=== PATIENT | male | born 1945 | race Caucasian/White ===

== ENCOUNTER 2017-02-10 08:48 | Inpatient (IN) ==
[2017-02-10] MEDS ORDERED: Calcium Gluconate 3,000 MG in D5% in Water 250 ML IVPB ONE (09:04)
[2017-02-10] MEDS ORDERED: 0.9 % Sodium Chloride 1,000 ML IVC ONE (09:06)
--- NOTE | 2017-02-10 09:10 | Emergency Department Note ---
Disposition Clinical Impression: Atrial fibrillation with RVR, Elevated troponin, Pleural effusion, Atelectasis of left lung, Hyperglycemia CKD (chronic kidney disease) Qualifiers: Chronic kidney disease stage: unspecified stage Qualified Code(s): N18.9 - Chronic kidney disease, unspecified Disposition: Admitted As Inpatient Condition: Fair Time of Disposition: 10:11 Arrhythmia/Palpitations HPI - General Chief Complaint: ED Arrhythmia/Palpitations Stated Complaint: A-fib RVR Time Seen by Provider: 02/10/17 08:55 Source: patient Mode of arrival: ambulatory Limitations: no limitations Nursing Notes Reviewed: Yes Vital Signs Reviewed: Yes - History of Present Illness HPI Narrative: 72-year-old gentleman history of A. fib, hypertension, peripheral vascular disease on Plavix presents for evaluation of dyspnea. Patient was seen in the cardiology office prior to arrival. Call from cardiology was received. Patient does have A. fib with RVR. Patient noted symptom onset this morning. No shortness of breath. No notable palpitations. Reports that he has been taking his medication as instructed. Patient is not on any type of oral anticoagulation. Patient denies any chest pain. No shortness of breath without fevers or cough. Patient does have remote history of smoking. Denies any nausea or vomiting. No abdominal pain. - Related Data Home Medications Medication Instructions Recorded Confirmed Aspirin 81 mg PO DAILY 07/20/16 02/10/17 Clopidogrel [Plavix] 75 mg PO DAILY 07/20/16 02/10/17 Losartan/Hydrochlorothiazide 1 tab PO DAILY 07/20/16 02/10/17 [Hyzaar 100-25 Tablet] Metoprolol XL (24 HR) Succ [Toprol 25 mg PO DAILY 07/20/16 02/10/17 Xl] Tamsulosin [Flomax] 0.8 mg PO DAILY 07/20/16 02/10/17 predniSONE [PredniSONE] 10 mg PO TAPER 02/10/17 02/10/17 Allergies Allergy/AdvReac Type Severity Reaction Status Date / Time Penicillins AdvReac See Verified 07/20/16 07:33 Comments ramipril [From Altace] AdvReac Cough Verified 07/20/16 07:33 Sbtoneb-Cwm-Lxg Reductase AdvReac Muscle Pain Verified 07/20/16 07:33 Inhibitor [Statins] All systems ED: reviewed and negative except as stated. Constitutional: Reports: as per HPI. Denies: fever Eyes: Reports: as per HPI ENT ED: Reports: as per HPI Cardiovascular: Reports: as per HPI. Denies: chest pain, palpitations Respiratory: Reports: as per HPI, dyspnea Gastrointestinal: Reports: as per HPI. Denies: nausea, vomiting, diarrhea Genitourinary: Reports: as per HPI Musculoskeletal: Reports: as per HPI Integumentary: Reports: as per HPI Neurological: Reports: as per HPI Psychiatric: Reports: as per HPI Endocrine: Reports: as per HPI Hematological/Lymphatic: Reports: as per HPI Past Medical History - Past Medical History Medical history: Reports: atrial fibrillation, coronary artery disease, hypertension Surgical history: Reports: angioplasty/stent, cataract, coronary bypass (CABG), herniorrhaphy, LE stent(s) Psychiatric history: Reports: no psych history - Social History Smoking Status: Former smoker Smokeless Tobacco Status: No Alcohol use: Reports: none Drug use: Reports: none Physical Exam - General Limitations: no limitations General appearance: alert, in no apparent distress - Head Head exam: atraumatic, normocephalic, normal inspection - Eye Eye exam: Present: normal appearance, PERRL, EOMI - ENT ENT exam: normal exam, mucous membranes moist - Neck Neck exam: Present: normal inspection, trachea midline - Chest Chest inspection: Present: normal inspection, symmetric chest wall rise - Respiratory Respiratory exam: Present: normal lung sounds bilaterally. Absent: respiratory distress - Cardiovascular Cardiovascular exam: Present: tachycardia, irregular rhythm - Abdominal Exam Abdominal exam: Present: soft, Non-Tender - Extremities Exam Extremities exam: Present: normal inspection. Absent: pedal edema - Back Exam Back exam: Present: normal inspection - Neurological Exam Neurological exam: Present: alert, oriented X3 - Skin Skin exam: Present: warm, dry, intact, normal color Course Course Narrative: Patient seen and examined upon arrival. Patient's vitals appears to be tachycardic with a blood pressure 1 teens systolic. Patient is not conversational dyspnea. Patient will get a cardiac evaluation including chest x -ray, EKG, lab work including a troponin. Patient will be pretreated with calcium prior to rate control. Attempts with Cardizem with gradual titration. Disposition admission. - Reevaluation(s) Reevaluation #1: Patient updated on plan of care. Patient's heart rate appears to be improving. Patient received diltiazem 10 mg and subsequent drip. Patient is on adequate place with heparin due to his A. fib as well as elevated troponin. Patient denies any chest pain. Patient does not have a STEMI on EKG. Patient will be admitted to the hospital service for further evaluation and monitoring. Patient updated on plan of care and denies any needs at this time. Time: 10:07 Reevaluation #2: Patient is resting comfortably. Patient's in no acute distress. Time: 10:20 Vital Signs Temperature 97.5 F L 02/10/17 08:50 Pulse Rate 182 02/10/17 08:50 Respiratory Rate 16 02/10/17 08:50 Blood Pressure 142/116 02/10/17 08:50 O2 Sat by Pulse Oximetry 95 02/10/17 08:50 Temperature 97.5 F L 02/10/17 08:50 Pulse Rate 129 02/10/17 10:04 Respiratory Rate 16 02/10/17 10:24 Blood Pressure 123/80 02/10/17 10:24 O2 Sat by Pulse Oximetry 95 02/10/17 10:04 Oxygen Delivery Oxygen Delivery Room Air Arrhythmia/Palpitations - [facility] Narrative Medical decision making narrative: 72-year-old male history of hypertension as well as A. fib presents for evaluation of dyspnea. Patient's onset was this morning. Patient was sent over from the cardiology office. Patient was noted to be in A. fib with RVR with a rate in the 160s to 70s. Patient's blood pressure also fluctuated from as high as 140s systolic to the mid 90s systolic. Patient was premedicated with 3 ounces of calcium gluconate. Patient was also given a Cardizem boluses as a drip. Patient's troponin came back elevated without EKG ST elevation or chest pain. Patient was given aspirin as well as started on a heparin drip patient denies any history of bloody stools or dark tarry stools. Patient's hemoglobin is stable.. Patient will be admitted to the hospitalist service for further evaluation monitoring. Patient's chest x-ray does show left basal lateral atelectasis and new effusion. Likely secondary to the A. fib. Patient does not present with symptoms concerning for pneumonia and antibiotics were not initiated in the emergency department. Patient was updated on plan of care. - Lab Data Lab results reviewed: Yes I reviewed the patient's lab results. Result diagrams: 02/10/17 08:56 02/10/17 08:56 Lab Results 02/10/17 02/10/17 02/10/17 Range/Units 08:56 08:56 08:56 WBC 10.8 (4.3-11.1) K/mcL RBC 5.27 (4.19-5.50) M/mcL Hgb 16.6 (12.9-16.9) g/dL Hct 50.4 H (37.5-50.1) % MCV 95.6 (83.0-100.0) fL MCH 31.5 (28.0-33.3) pg MCHC 32.9 (31.6-35.5) g/dL RDW 15.9 H (11.5-14.5) % Plt Count 143 (140-400) K/mcL MPV 11.9 (9.4-12.4) fL Immature Gran % 0.4 (0-4) % Seg Neutrophils % 89.8 % Lymphocytes % 6.0 % Monocytes % 3.7 % Eosinophils % 0.0 % Basophils % 0.1 % Neutrophils # 9.7 H (1.6-8.9) K/mcL Lymphocytes # 0.7 (0.6-4.6) K/mcL Monocytes # 0.4 (0.0-1.3) K/mcL Eosinophils # 0.0 (0.0-0.6) K/mcL Basophils # 0.0 (0.0-0.2) K/mcL PT 14.8 H (9.4-12.1) Seconds INR 1.4 APTT 27.7 (26.0-36.0) Seconds Sodium 144 (136-145) mEq/L Potassium 3.4 L (3.5-4.5) mEq/L Chloride 103 (98-109) mEq/L Carbon Dioxide 26 (19-29) mEq/L BUN 38 H D (8-26) mg/dL Creatinine 1.80 H (0.72-1.25) mg/dL Est GFR ( Amer) 45 L (> 60) Est GFR (Non-Af Amer) 37 L (> 60) BUN/Creatinine Ratio 21 (6-26) Glucose 217 H (70-99) mg/dL Calculated Osmolality 314 H (280-300) Calcium 9.5 (8.6-10.8) mg/dL Magnesium 1.6 (1.6-2.6) mg/dL Troponin I (0-0.03) ng/mL TSH 1.654 (0.350-4.840) mcIU/mL 02/10/17 Range/Units 08:56 WBC (4.3-11.1) K/mcL RBC (4.19-5.50) M/mcL Hgb (12.9-16.9) g/dL Hct (37.5-50.1) % MCV (83.0-100.0) fL MCH (28.0-33.3) pg MCHC (31.6-35.5) g/dL RDW (11.5-14.5) % Plt Count (140-400) K/mcL MPV (9.4-12.4) fL Immature Gran % (0-4) % Seg Neutrophils % % Lymphocytes % % Monocytes % % Eosinophils % % Basophils % % Neutrophils # (1.6-8.9) K/mcL Lymphocytes # (0.6-4.6) K/mcL Monocytes # (0.0-1.3) K/mcL Eosinophils # (0.0-0.6) K/mcL Basophils # (0.0-0.2) K/mcL PT (9.4-12.1) Seconds INR APTT (26.0-36.0) Seconds Sodium (136-145) mEq/L Potassium (3.5-4.5) mEq/L Chloride (98-109) mEq/L Carbon Dioxide (19-29) mEq/L BUN (8-26) mg/dL Creatinine (0.72-1.25) mg/dL Est GFR ( Amer) (> 60) Est GFR (Non-Af Amer) (> 60) BUN/Creatinine Ratio (6-26) Glucose (70-99) mg/dL Calculated Osmolality (280-300) Calcium (8.6-10.8) mg/dL Magnesium (1.6-2.6) mg/dL Troponin I 0.10 H* (0-0.03) ng/mL TSH (0.350-4.840) mcIU/mL - Radiology Data Radiology results reviewed: Yes I reviewed the patient's radiology results. Chest X-Ray 02/10/17 09:06 IMPRESSION: New large amount of left basilar atelectasis and/ or pneumonia with adjacent small to moderate pleural effusion. D/ / Kevin Ramos MD / Kevin Ramos MD Interpreting Provider: Kevin Ramos MD - EKG Data EKG attestation: Yes I reviewed and interpreted this EKG. Rate: tachycardia Rhythm: A.Fib [place]/QRS: normal Q waves: III, aVF, v1, v2 T wave inversions noted in: v1, v2 When compared to previous EKG there are: changes noted Interpretation: nonspecific ST-T wave changes S.B.A.R. - S.B.AJose Situation: Demographics Background: Presenting Complaint Assessment: Vital Signs, Course and respsone to treatment, Patient/Family Expectation Recommendation: Barrier(s) to disposition, Recommendation based on pending studies, treatments, or consults S.B.A.RRito Report Given to: Dr. Cortney Baptiste Repor Time: 09:50
[2017-02-10 09:16] LABS: Basophils % 0.1 %; Hematocrit 50.4 % (37.5-50.1); Hemoglobin 16.6 g/dL (12.9-16.9); Immature Granulocytes % 0.4 % (0-4); Lymphocytes # 0.7 K/mcL (0.6-4.6); Mean Corpuscular HGB Conc 32.9 g/dL (31.6-35.5); Mean Corpuscular Hemoglobin 31.5 pg (28.0-33.3); Mean Corpuscular Volume 95.6 fL (83.0-100.0); Mean Platelet Volume 11.9 fL (9.4-12.4); Monocytes # 0.4 K/mcL (0.0-1.3); Monocytes % 3.7 %; Neutrophils # 9.7 K/mcL (1.6-8.9); Platelet Count 143 K/mcL (140-400); Red Blood Count 5.27 M/mcL (4.19-5.50); Red Cell Distribution Width 15.9 % (11.5-14.5); Segmented Neutrophils % 89.8 %
--- NOTE | 2017-02-10 09:19 | Emergency Department Note ---
START Narrative - START START: I examined this patient and my medical decision-making was reviewed with the HEALTHCARE REPRESENTATIVE/PA/Advanced Practice Nurse/Resident Physician. I agree with the documented findings, disposition and treatment plan as described except to the extent set forth below. ED attending note: Patient seen with emergency medicine resident Dr. Gabriel. Please see a copy of his note for details of the H&P, evaluation, management and disposition of this patient. We independently had [id number] contact with the patient Briefly: 72-year-old male sent from Dr. Tafoya's office for A. fib and RVR. Ablation years ago. Patient is in A. fib with RVR rate of about 180. He was hypotensive upon arrival. Awake and alert. The patient will get IV calcium IV diltiazem patient will get supportive therapy and patient will get chest x-ray and be admitted. She also has increasing creatinine and prostate enlargement. Provided 45 minutes of critical care services this patient. Admission is anticipated. Labs pending.
[2017-02-10 09:22] LABS: INR 1.4; Prothrombin Time 14.8 Seconds (9.4-12.1)
[2017-02-10 09:24] LABS: Calcium 9.5 mg/dL (8.6-10.8); Magnesium 1.6 mg/dL (1.6-2.6); Potassium 3.4 mEq/L (3.5-4.5)
[2017-02-10 09:25] LABS: Activated Partial Thrombo Time 27.7 Seconds (26.0-36.0)
[2017-02-10] MEDS ORDERED: Aspirin 81 MG TAB.CHEW PO ONE (09:33)
[2017-02-10] MEDS ORDERED: *HR* Heparin 5,000 UNIT/ML VIAL IVP ONE (09:40)
[2017-02-10 09:46] LABS: Thyroid Stimulating Hormone 1.654 mcIU/mL (0.350-4.840)
[2017-02-10] MEDS: Heparin 25,000 UNIT/500 ML D5W 25,000 UNIT/500 ML MLS IVC SCH (09:54)
[2017-02-10] MEDS ORDERED: Acetaminophen 325 MG TABLET PO PRN (10:58)
[2017-02-10] MEDS ORDERED: MOM Conc 10 ML UD.LIQ PO PRN (10:58)
[2017-02-10] MEDS ORDERED: Naloxone 0.4 MG/ML INJ IVP PRN (10:58)
[2017-02-10] MEDS ORDERED: predniSONE 10 MG TABLET PO SCH (11:15)
--- NOTE | 2017-02-10 11:26 | Event Note ---
Date of Encounter: 02/10/17 Time of Encounter: 11:24 1. Atrial fibrillation with rapid ventricular response without clear trigger, possibly community-acquired pneumonia Continue Cardizem drip Start Rocephin IV Cardiology consult 2. Elevated troponin likely secondary to demand ischemia versus non-STEMI Continue Plavix and aspirin 3. Urinary retention this Order bladder scan, may consult urology Place Jensen catheter 4. Acute renal failure likely associated with urinary retention IVF Note to follow by NATHALIE Feldman
--- NOTE | 2017-02-10 11:32 | Internal Med History&Physical ---
<Mike Feldman - Last Filed: 02/10/17 12:09> Date of Encounter: 02/10/17 Time of Encounter: 10:30 Assessment and Plan (1) Atrial fibrillation with RVR Current visit: Yes Status: Acute Assess: Mr. Chavez presents with SOB with exertion and irregular heart beat. Patient was seen in his electronic science teacher's office prior to arrival at the ED. Patient reports symptoms of shortness of breath and palpitations began this morning. Patient currently in Afib with RVR with unknown trigger, possibly CAP based on CXR dated 02/10/17. Plan: Continue Cardizem drip Cardiology consult ordered and confirmed Continuous cardiac telemetry ordered Heparin drip ordered Continue aspirin therapy Continue Plavix Continue Lopressor Bed rest with falls precautions and up with assist only status Monitor patient and vital signs (2) Elevated troponin Current visit: Yes Status: Acute Assess: Patient presents with elevated initial troponin level of 0.1. Plan: Trend troponins x2 Continuous cardiac telemetry ordered Continue Plavix and aspirin therapy Follow-up labs ordered Monitor patient and vital signs (3) Pleural effusion Current visit: Yes Status: Acute Assess: Patient presents with new large amount of left basilar atelectasis and/or pneumonia with adjacent small to moderate pleural effusion of left lower lobe. Plan: Rocephin 1,000 mg IVPB daily ordered for infection coverage (4) Urinary retention Current visit: Yes Status: Acute Assess: Patient presents with complaint of difficulty urinating for the past ten days. Plan: Bladder scans ordered when necessary Jensen catheter placement management ordered Continue Flomax Urinalysis ordered (5) Acute renal failure Current visit: Yes Status: Acute Assess: Patient presents with acute renal failure, most likely due to difficulty urinating/urinary retention for the past ten days. Plan: Judicious use of IV fluids Bladder scans ordered when necessary Jensen catheter placement management ordered Continue Flomax Urinalysis ordered Follow-up labs ordered Qualifiers: Acute renal failure type: unspecified Qualified Code(s): N17.9 - Acute kidney failure, unspecified (6) DVT prophylaxis Current visit: Yes Status: Acute Assess: Patient to receive DVT prophylaxis based on cardiac history, current status of A. fib with RVR, and bedrest status. Plan: Heparin drip ordered Anti-embolic stockings were ordered Internal Medicine - H&P: HPI Chief complaint: Atrial fibriallation with RVR/SOB Admitted From: Emergency Dept Plans for Post Hospital Care: Home History of present illness: Mr. Chavez is a 72 year old male presents from the ED with chief complaint of SOB with exertion and irregular heart beat. Patient was seen in his electronic science teacher 's office prior to arrival at the ED. Patient reports symptoms of shortness of breath and palpitations began this morning. Patient also reports that he has had difficulty in urinating for the past ten days and urine is scant. Initial lab results show troponin of 0.10, creatinine of 1.80, and GFR of 37. Current potassium is 3.4. Glucose is 217 on initial draw. Mr. Chavez has a history of atrial fibrillation, CAD, hypertension, prostatic hypertrophy, and testicular cancer with removal of right testicle. Patient has surgical history of triple bypass (CABG), herniorrhaphy, LV stents, direct surgery, laminectomy, and cardiac ablation 5 years ago. Patient had nuclear stress test on 06/29/16, heart catheterization on 07/20/16, and carotid duplex imaging on 12/26/16. Patient is to be admitted inpatient status with consults to cardiology and urology placed and confirmed. Patient placed on continuous cardiac telemetry, supplemental O2, 1,000 mg daily of Rocephin IVPB based on suspicion of pneumonia from CXR taken today, bladder scans PRN with Jensen catheter placement and management, Heparin drip, and continuation of patient's home meds. Patient status is bed rest with falls precautions and up with assist only. Patient to be monitored closely. Past Med Surg Social Fam HX - Past Medical History Medical history: atrial fibrillation, coronary artery disease, hypertension Psychiatric history: no psych history - Past Surgical History Surgical History: angioplasty/stent, cataract, coronary bypass (CABG), herniorrhaphy, LE stent(s), splenectomy, other (Removal of right testicle due to testicular cancer) - Social History Smoking Status: Former smoker Packs per day: 4 PPD Smokeless Tobacco Status: No Alcohol use: none Drug use: none Occupational status: retired Current living situation: Home - Independent Activity Level: Independent ambulation Recent Out of Country Travel Within the Last 8 Weeks: No Exposure or Possible Exposure to Illness During Travel: No - Family History Father Race: Family Member Ethnicity: Non- Living Status: Age at : 51 Cause of : [place] Hx Family Cardiac Disorders: Yes ([place]) Mother Race: Family Member Ethnicity: Non- Living Status: Age at : 79 Cause of : [place] Hx Family Cardiac Disorders: Yes ([place]) Internal Medicine - H&P: Meds Aspirin 81 mg PO DAILY 07/20/16 [History] Clopidogrel [Plavix] 75 mg PO DAILY 07/20/16 [History] Losartan/Hydrochlorothiazide [Hyzaar 100-25 Tablet] 1 tab PO DAILY 07/20/16 [ History] Metoprolol XL (24 HR) Succ [Toprol Xl] 25 mg PO DAILY 07/20/16 [History] Tamsulosin [Flomax] 0.8 mg PO DAILY 07/20/16 [History] predniSONE [PredniSONE] 10 mg PO TAPER 02/10/17 [History] Allergies Penicillins Adverse Reaction (Verified 07/20/16 07:33) See Comments welts ramipril [From Altace] Adverse Reaction (Verified 07/20/16 07:33) Cough Afujdkq-Ufc-Xee Reductase Inhibitor [Statins] Adverse Reaction (Verified 07:33) Muscle Pain All Systems PM: A 10-system review of systems was performed and is negative for pertinent findings except as documented above in the HPI. - Constitutional Constitutional: no chills, no fever(s), no night sweats - EENT Eyes: no change in vision, no discharge, no pain, no photophobia Ears: no ear discharge, no ear pain, no tinnitus Nose, mouth and throat: no dysphagia, no nasal discharge, no neck pain, no sore throat - Breasts Breasts: as per HPI - Cardiovascular Cardiovascular ROS IM: as per HPI, dyspnea on exertion, irregular heart rhythm, palpitations - Respiratory Respiratory: as per HPI, cough, dyspnea, dyspnea on exertion - Gastrointestinal Gastrointestinal: as per HPI, change in bowel habits (Constipation without resolve from use of Colace and laxatives), no abdominal pain, no diarrhea, no hematemesis, no hematochezia, no melena, no nausea, no vomiting - Genitourinary Genitourinary ROS male: as per HPI, difficulty urinating - Musculoskeletal Musculoskeletal ROS IM: no numbness, no tingling - Integumentary Integumentary IM: no rash, no unusual bruising - Neurological Neurological ROS: no confusion, no convulsions, no focal weakness, no numbness, no tingling, no tremor(s) - Psychiatric Psychiatric: as per HPI - Endocrine Endocrine IM: as per HPI - Hematologic/Lymphatic Hematologic/Lymphatic: no easy bruising - Allergic/Immunologic Allergic/Immunologic: as per HPI - Constitutional Vitals: Temp Pulse Resp BP Pulse Ox 97.5 F L 129 16 123/80 95 02/10/17 08:50 02/10/17 10:04 02/10/17 10:24 02/10/17 10:24 02/10/17 10:04 General appearance: Present: cooperative, mild distress (SOB with talking), A&O X 3, pleasant, obese, answers questions appropriately - Head Head exam: Present: atraumatic, normocephalic - Eye Eye exam: Present: PERRL, conjuntiva pink, sclera anicteric Pupils: Present: PERRL - ENT ENT exam: Present: normal exam, normal external ear exam - Neck Neck exam general surgery: Present: supple, trachea midline. Absent: lymphadenopathy - Respiratory Respiratory exam: Present: respiratory distress (SOB with talking. SpO2 drops considerably when speaking during assessment) - Cardiovascular Cardiovascular exam: Present: irregular rhythm - GI/Abdominal GI/Abdominal exam: Present: diminished bowel sounds, soft, tenderness - Rectal Rectal exam: Present: deferred - Additional comments: exam deferred. - Extremities Exam Extremities exam: Present: warm, radial pulses palpable and symetrical. Absent : calf tenderness, cyanotic, pedal edema - Back Exam Back exam: Present: normal inspection - Neurological Exam Neurological exam: Present: CN II-XII intact, oriented X3, no focal deficits. Absent: pronater drift, facial droop, speech deficit - Psychiatric Psychiatric exam: Present: normal affect, normal mood - Skin Skin exam: Present: dry, intact Internal Med - H&P Results - Labs CBC & Chem 7: 02/10/17 08:56 02/10/17 08:56 - EKG Data Prior EKG available for review: yes When compared to previous EKG: there are significant changes EKG comments: 02/10/17 11:40 EKG dated 06/14/16 shows sinus rhythm with frequent ventricular premature complexes, borderline left axis deviation, incomplete right bundle branch block , nonspecific T-wave abnormality EKG dated 02/10/17 shows atrial fibrillation with rapid ventricular response with aberrant conduction or ventricular premature complexes, low QRS voltage in precordial leads, possible anterior myocardial infarction (probably old), inferior myocardial infarction (probably old).. - Diagnostic Studies Chest x-ray Additional comments: 1-View CXR dated 02/10/17 shows there is new dense consolidation of the left lower lobe with adjacent blunting of the costophrenic angle. No acute pulmonary process elsewhere. Cardiac and mediastinal shadows are unchanged with sternotomy wires and mediastinal clips again demonstrated. No evidence of pneumothorax. Overall impression: New large amount of left basilar atelectasis and/or pneumonia with adjacent small to moderate pleural effusion. <Ryan Jj H - Last Filed: 02/10/17 12:30> Date of Encounter: 02/10/17 Internal Medicine - H&P: HPI History of present illness: Mr. Chavez is a 72 year old male All Systems PM: A 10-system review of systems was performed and is negative for pertinent findings except as documented above in the HPI. - Constitutional Vitals: Temp Pulse Resp BP Pulse Ox 97.5 F L 133 16 121/79 97 02/10/17 11:34 02/10/17 11:34 02/10/17 11:34 02/10/17 11:34 02/10/17 12:15 Internal Med - H&P Results - Labs CBC & Chem 7: 02/10/17 08:56 02/10/17 08:56 - Attending Attestation 1. Atrial fibrillation with rapid ventricular response without clear trigger, possibly community-acquired pneumonia Continue Cardizem drip metoprolol Start Rocephin IV Cardiology consult 2. Elevated troponin likely secondary to demand ischemia versus non-STEMI Continue Plavix and aspirin 3. Urinary retention Order bladder scan, may consult urology Place Jensen catheter 4. Acute renal failure likely associated with urinary retention IVF I examined this patient and my medical decision-making was reviewed with the SUCKER MACHINE OPERATOR/PA/Advanced Practice Nurse/Resident Physician. I agree with the documented findings, disposition and treatment plan as described except to the extent set forth below.
--- NOTE | 2017-02-10 12:03 | Cardiology Consult Note ---
Date of Encounter: 02/10/17 Time of Encounter: 12:02 Assessment and Plan (1) Atrial fibrillation with RVR Current Visit: Yes Status: Acute Continues to be in afib with rvr with rate 130s-140s on exam. Continue rate control. 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 (2) Elevated troponin Current Visit: Yes Status: Acute Troponin downtrending 0.10, now 0.07, likely 2/2 demand ischemia from A fib with rvr - continue Aspirin 81mg, Toprol XL 50mg, stop plavix - previously intolerant to statin therapy. Discussion w patient/family: The assessment and plan as outlined above was discussed with the patient and/or family members who expressed understanding and agreement. All questions were answered. Thank you for involving us in the care of your patient. Please call with any questions. History of Present Illness Consult date: 02/10/17 Requesting physician: Mike Feldman Consult reason: A fib with RVR, elevated troponin Chief complaint: dyspnea History of present illness: Mr. Chavez is a 72 year old male with a past medical history of atrial fibrillation with ablation in 2012, hypertension, PAD s/p stent to R iliac artery, carotid stenosis, coronary artery disease with three-vessel CABG in 2003 , hyperlipidemia. Patient was being seen in the cardiology office today and had been feeling shortness of breath. Patient states over the last 2 weeks, he has had a lot of fatigue and spending more time in bed. He was found to be in atrial fibrillation with RVR with rate 160s to 170s. He was sent over to the emergency department for evaluation. Patient was placed on a Cardizem drip as well as a heparin drip. Patient was also found to have an elevated troponin of 0.10, and acute kidney injury with a creatinine of 1.80 up from 1.53. Last TTE was 07/25/2014 with EF 60%. No significant valvular dysfunction. Mild diastolic dysfunction. Last nuclear stress test was 06/29/2016 which showed gated EF 57%. Small sized mild intensity, partially reversible apical lateral defect. Left heart catheterization on 07/20/2016 showed EF 50% 2 out of 3 patent bypass grafts. Severe 3 vessel CAD. 90% stenosis in the small diagonal branch that fills via LEON graft and supplies faint collaterals to a higher small diagonal or OM that may account for abnormal stress test. Medical therapy was recommended. Past Med Surg Social Fam HX - Past Medical History Medical history: atrial fibrillation, coronary artery disease, hypertension Psychiatric history: no psych history - Past Surgical History Surgical History: angioplasty/stent, cataract, coronary bypass (CABG), herniorrhaphy, LE stent(s), splenectomy, other (Removal of right testicle due to testicular cancer) - Social History Smoking Status: Former smoker Packs per day: 4 PPD Smokeless Tobacco Status: No Alcohol use: none Drug use: none - Family History Mother Race: Family Member Ethnicity: Non- Living Status: Age at : 79 Cause of : [place] Hx Family Cardiac Disorders: Yes ([place]) Father Race: Family Member Ethnicity: Non- Living Status: Age at : 51 Cause of : [place] Hx Family Cardiac Disorders: Yes ([place]) Medications and Allergies Aspirin 81 mg PO DAILY 07/20/16 [History] Clopidogrel [Plavix] 75 mg PO DAILY 07/20/16 [History] Losartan/Hydrochlorothiazide [Hyzaar 100-25 Tablet] 1 tab PO DAILY 07/20/16 [ History] Metoprolol XL (24 HR) Succ [Toprol Xl] 25 mg PO DAILY 07/20/16 [History] Tamsulosin [Flomax] 0.8 mg PO DAILY 07/20/16 [History] predniSONE [PredniSONE] 10 mg PO TAPER 02/10/17 [History] Allergies Penicillins Adverse Reaction (Verified 07/20/16 07:33) See Comments randa ramipril [From Altace] Adverse Reaction (Verified 07/20/16 07:33) Cough Heqbkuv-Iuf-Bbm Reductase Inhibitor [Statins] Adverse Reaction (Verified 07:33) Muscle Pain All Systems Review: A 10-system review of systems was performed and is negative for pertinent findings except as documented above in the HPI. - Constitutional Constitutional: fatigue, weakness - EENT Eyes: no blurred vision Nose, mouth and throat: no dysphagia, no sore throat - Cardiovascular Cardiovascular: dyspnea on exertion, irregular heart rhythm, no chest pain at rest, no chest pain with exertion, no dyspnea at rest, no radiating jaw, neck or arm pain, no leg edema - Respiratory Respiratory: dyspnea, no cough - Gastrointestinal Gastrointestinal: no abdominal pain - Genitourinary Genitourinary: other (urinary retention) - Musculoskeletal Musculoskeletal: back pain (chronic) - Integumentary Integumentary: no erythema, no rash - Neurological Neurological: no dizziness, no focal weakness, no numbness, no tingling Physical Examination Vital Signs, Last 4 Hours Temp Pulse Resp BP Pulse Ox 02/10/17 11:34 97.5 F L 133 16 121/79 97 General: Conversant, No Apparent Distress HEENT: Atraumatic, Mucus Membranes Moist Neck: No JVD, Normal carotid pulses Cardiac: No Murmur, Other (A fib with RVR rate 130s.) Lungs: Normal Breath Sounds, No Wheeze, Rales, Rhonchi Neuro: Alert and responsive, No focal deficits noted Abdomen: Soft, Non-Tender Skin: No rashes noted on visualized skin Musculoskeletal: No Chest Wall Tenderness Extremities: Normal Pulses, Other (mild 1+ pitting pretibial edema) Results 02/10/17 08:56 02/10/17 08:56 Lab Results 02/10/17 11:04 B-Natriuretic Peptide 374 H - Imaging and Cardiology Chest Xray: report reviewed Stress Test: report reviewed Echo: report reviewed - EKG Interpretation EKG results cardiology: personally reviewed Consult Discharge Plan - Plan Referrals: Chad Srivastava MD [Primary Care Provider] -
[2017-02-10 12:40] LABS: Bilirubin,Urine Negative (Negative); Blood,Urine Negative (Negative); Clarity,Urine Clear (Clear); Color,Urine Yellow (Yellow); Glucose,Urine (UA) Normal (Normal); Ketones,Urine Negative (Negative); Leukocyte Esterase,Urine Negative (Negative); Nitrite,Urine Negative (Negative); PH,Urine 5.5 pH Units (5.0-8.0); Protein,Urine Negative (Neg-Trace); Specific Gravity,Urine 1.021 (1.010-1.025); Urobilinogen,Urine Normal (Normal)
[2017-02-10 12:55] LABS: Chol/HDL Ratio 4.2 (0-4.9); Magnesium 1.7 mg/dL (1.6-2.6)
[2017-02-10] MEDS: Lactulose Oral Soln 20 GM/30 ML UDC PO SCH ×2 (13:25→23:01)
[2017-02-10] MEDS: 0.9 % Sodium Chloride 1,000 ML IVC SCH (13:26)
[2017-02-10] MEDS ORDERED: Metoprolol XL (24 HR) Succ 50 MG TAB.ER.24H PO ONE (15:45)
[2017-02-10 15:52] LABS: Hematocrit 47.1 % (37.5-50.1); Hemoglobin 15.4 g/dL (12.9-16.9); Mean Corpuscular HGB Conc 32.7 g/dL (31.6-35.5); Mean Corpuscular Hemoglobin 30.9 pg (28.0-33.3); Mean Corpuscular Volume 94.4 fL (83.0-100.0); Platelet Count 141 K/mcL (140-400); Red Blood Count 4.99 M/mcL (4.19-5.50); Red Cell Distribution Width 15.7 % (11.5-14.5)
[2017-02-10 15:59] LABS: INR 1.4; Prothrombin Time 15.6 Seconds (9.4-12.1)
[2017-02-10 16:10] LABS: Activated Partial Thrombo Time 107.7 Seconds (26.0-36.0)
--- NOTE | 2017-02-10 16:38 | Event Note ---
Date of Encounter: 02/10/17 Time of Encounter: 16:30 - Cardiology Event Note Viveros check completed for Eliquis 5 mg by mouth twice a day and noted to be $ 48.30-- will evaluate tomorrow with patient potential affordability.
--- NOTE | 2017-02-10 16:44 | Electrocardiograph Report ---
[place] [id number] Test Date: 2017-02-10 Pat Name: Tee Chavez Department: [id number] Room: 2A Gender: M Garnett Feeder: : 1945 Requested By: Gumaro Gabriel Order Number: [id number] Reading MD: Angela Mcqueen Measurements Intervals Sharon Rate: 174 P: CO: 0 QRS: -25 QRSD: 87 T: 160 QT: 255 QTc: 348 Interpretive Statements ATRIAL FIBRILLATION WITH RAPID VENTRICULAR RESPONSE WITH ABERRANT CONDUCTION OR VENTRICULAR PREMATURE COMPLEXES LOW QRS VOLTAGE IN PRECORDIAL LEADS POSSIBLE ANTERIOR MYOCARDIAL INFARCTION, PROBABLY OLD INFERIOR MYOCARDIAL INFARCTION, PROBABLY OLD Electronically Signed On 02-10-2017 16:42:46 EDT by Angela Mcqueen
[2017-02-11] MEDS: 0.9 % Sodium Chloride 1,000 ML IVC SCH ×2 (00:10→10:15)
[2017-02-11] MEDS: Ondansetron 4 MG/2 ML VIAL IVP PRN ×2 (00:13→10:10)
[2017-02-11] MEDS ORDERED: *HR* OxyCODONE Immed Rel 5 MG TABLET PO ONE (00:55)
[2017-02-11 01:04] LABS: Hematocrit 46.3 % (37.5-50.1); Hemoglobin 15.1 g/dL (12.9-16.9); Immature Granulocytes % 0.4 % (0-4); Lymphocytes % 9.5 %; Mean Corpuscular HGB Conc 32.6 g/dL (31.6-35.5); Mean Corpuscular Hemoglobin 31.3 pg (28.0-33.3); Mean Corpuscular Volume 95.9 fL (83.0-100.0); Mean Platelet Volume 12.2 fL (9.4-12.4); Platelet Count 142 K/mcL (140-400); Red Blood Count 4.83 M/mcL (4.19-5.50)
[2017-02-11 01:05] LABS: Basophils % 0.1 %; Lymphocytes # 1.3 K/mcL (0.6-4.6); Monocytes # 0.7 K/mcL (0.0-1.3); Neutrophils # 11.7 K/mcL (1.6-8.9); Nucleated Red Blood Cells 0.1 /100 WBC (0)
[2017-02-11 01:19] LABS: Potassium 4.2 mEq/L (3.5-4.5)
[2017-02-11 01:20] LABS: Albumin 2.9 g/dL (3.5-5.0); Albumin/Globulin Ratio 0.9 (1.1-2.2); Bilirubin,Total 0.9 mg/dL (0.2-1.2); Calcium 8.8 mg/dL (8.6-10.8); Globulin 3.1 g/dL (2.4-3.5)
[2017-02-11] MEDS ORDERED: *HR* HYDROmorphone (PF) 1 MG/ML SYRINGE IVP ONE (01:35)
[2017-02-11] MEDS: Aspirin 81 MG TAB.CHEW PO SCH (08:30)
[2017-02-11] MEDS: Lactulose Oral Soln 20 GM/30 ML UDC PO SCH ×3 (08:32→21:04)
--- NOTE | 2017-02-11 08:33 | Cardiology Progress Note ---
Date of Encounter: 02/11/17 Time of Encounter: 08:30 Assessment and Plan (1) Atrial fibrillation with RVR Current Visit: Yes Status: Acute Per Cardiology: Continues to be in afib with HR 80's-90's. IV Cardizem drip at 5 mg per hour-- Will DC. Now on Toprol XL 50mg PO daily. Systolic blood pressure in the 90s to 110s. We'll discontinue ARB/HCTZ to allow for SBP room for med titration and d/ t SONNY. Regarding long-term anticoagulation, [id number] score 3: Currently on IV heparin drip. Eliquis ortega check $48 per month. I had lengthy discussion with patient regarding long-term anticoagulation and interested in proceeding with Eliquis, however dark munguia colored urine noted in Jensen bag. Urology c/s pending. H&H overall appears stable but is downward trending. We'll discontinue IV heparin drip for now. We'll hold off on initiation of Eliquis until seen by urology. Will discuss and review with Dr. Szymanski. Patient aware of increased stroke risk while not on anticoagulation. (2) Elevated troponin Current Visit: Yes Status: Acute Per Cardiology: Troponin downtrending 0.10, now 0.07, likely 2/2 demand ischemia from A fib with rvr and SONNY. Chest pain-free. Had recent heart catheterization for abnormal stress test July 2016 which showed patent 2 of 3 bypass grafts with patent LEON to mid LAD, patent SVG to OM1, occluded SVG to right PDA. Additionally noted to have 90% stenosis in small diagonal that fills from Leon and supplies faint collaterals to a higher small diagonal/OM. No cardiac rehabilitation warranted. On asa, BB, previously intolerant to statin therapy. (3) Acute renal failure Current Visit: Yes Status: Acute Per Cardiology: Has been experiencing urinary retention suspected obstructive. Had pending outpatient urology appointment. Urology inpatient consult pending. Creatinine elevated up to 2.06. Historically normal kidney function. Has IV fluids infusing. Jensen catheter draining dark munguia colored urine. Further management per primary service and urology. ELIJAH inhibitor/HCTZ discontinued. I discontinued Lovenox yesterday. Qualifiers: Acute renal failure type: unspecified Qualified Code(s): N17.9 - Acute kidney failure, unspecified (4) Pleural effusion Current Visit: Yes Status: Acute Per Cardiology: Noted to have small to moderate left pleural effusion on chest x-ray. Patient with conversational dyspnea and on nasal cannula oxygen-- does not require at home. Recommend cautious monitoring of IV fluids. BNP mildly elevated at 374. Last echo July 2014 showed EF preserved at 60%. Will check echo for reevaluation of EF due to A. fib with RVR. Discussion w patient/family: The assessment and plan as outlined above was discussed with the patient who expressed understanding and agreement. All questions were answered. Thank you for involving us in the care of your patient. Please call with any questions. Subjective Principal diagnosis: Afib RVR Interval history: Patient denies any chest pain or palpitations. Reports shortness of breath slightly improved. Objective Vital Signs, Last 4 Hours Pulse Resp BP Pulse Ox 02/11/17 07:34 77 19 112/79 96 General: Conversant HEENT: Atraumatic, Normocephaly, Mucus Membranes Moist Neck: No JVD, Normal carotid pulses Cardiac: No Murmur, Other (Irregularly irregular) Lungs: Normal Breath Sounds, No Wheeze, Rales, Rhonchi Neuro: Alert and responsive, No focal deficits noted Abdomen: Soft, Non-Tender Skin: No rashes noted on visualized skin Musculoskeletal: No Chest Wall Tenderness Extremities: No Clubbing, No Cyanosis, Normal Pulses Other: Jensen catheter draining dark munguia colored urine Results 02/11/17 00:56 02/11/17 00:56 Lab Results Laboratory Tests 01/18/17 02/09/17 02/10/17 09:11 08:06 08:56 Creatinine 1.08 1.53 H 1.80 H Est GFR (Non-Af Amer) > 60 45 L 37 L Troponin I B-Natriuretic Peptide 02/10/17 02/10/17 02/10/17 08:56 11:04 12:31 Creatinine Est GFR (Non-Af Amer) Troponin I 0.10 H* 0.07 H* B-Natriuretic Peptide 374 H 02/10/17 02/11/17 19:25 00:56 Creatinine 2.06 H Est GFR (Non-Af Amer) 32 L Troponin I 0.08 H* B-Natriuretic Peptide Laboratory Tests 02/10/17 02/10/17 02/11/17 08:56 15:46 00:56 Hgb 16.6 15.4 15.1 Hct 50.4 H 47.1 46.3 Plt Count 142 ITS Impressions Chest X-Ray 02/10/17 09:06 IMPRESSION: New large amount of left basilar atelectasis and/ or pneumonia with adjacent small to moderate pleural effusion. D/ / Kevin Ramos MD / Kevin Ramos MD Interpreting Provider: Kevin Ramos MD Intake & Output 02/08/17 02/09/17 02/10/17 02/11/17 23:59 23:59 23:59 23:59 Intake Total 3601 / 3601 319 / 319 Output Total 300 / 300 Balance 3301 / 3301 319 / 319 Weight 91.399 kg 91.5 kg Active Medications Acetaminophen (Tylenol) 650 mg PO Q6HR PRN PRN Reason: Mild Pain (1-3) Stop: 08/12/17 10:59 Last Admin: 02/10/17 18:27 Dose: 650 mg Aspirin (Aspirin) 81 mg PO DAILY JANE Stop: 08/13/17 09:01 HCTZ/Losartan Potassium (Hyzaar 50/12.5) 2 each PO DAILY JANE Stop: 08/13/17 09:01 Last Admin: 02/11/17 08:21 Dose: Not Given Diltiazem HCl 125 mg/ Dextrose 125 mls @ 5 mls/hr IVC .Q24H JANE PRN Reason: 5 MG/HR Stop: 08/12/17 09:46 Last Admin: 02/11/17 04:32 Dose: 5 mg/hr, 5 mls/hr Heparin Sodium/Dextrose (Heparin 25,000 Unit/500 Ml D5w) 25,000 unit in 500 mls @ 20.684 mls/hr IVC .Q24H JANE; 12 UNIT/KG/HR PRN Reason: Protocol Stop: 08/12/17 09:46 Last Titration: 02/11/17 07:28 Dose: 9.97 unit/kg/hr, 17.2 mls/hr Ceftriaxone Sodium 1,000 mg/ (Dextrose) 100 mls @ 200 mls/hr IVPB DAILY JANE Stop: 08/12/17 12:01 Last Admin: 02/10/17 13:26 Dose: 200 mls/hr Sodium Chloride (0.9 % Sodium Chloride) 1,000 mls @ 100 mls/hr IVC .Q10H JANE Stop: 08/12/17 12:16 Last Admin: 02/11/17 00:10 Dose: 100 mls/hr Lactulose (Lactulose) 10 gm PO BID JANE Stop: 08/12/17 12:01 Last Admin: 02/10/17 23:01 Dose: Not Given Magnesium Hydroxide (Milk Of Magnesia Conc) 10 ml PO DAILY PRN PRN Reason: Indigestion Stop: 08/12/17 10:59 Metoprolol Succinate (Toprol Xl) 50 mg PO DAILY JANE Stop: 08/13/17 09:01 Naloxone HCl (Narcan) 0.4 mg IVP Q2MIN PRN PRN Reason: Opioid Reversal Stop: 08/12/17 10:59 Ondansetron HCl (Zofran) 4 mg IVP Q8HR PRN PRN Reason: Nausea And Vomiting Stop: 08/12/17 10:59 Last Admin: 02/11/17 00:13 Dose: 4 mg Pharmacy Profile Note (Patient Taking Own Medication) 40 each PO DAILY JANE Stop: 02/11/17 09:01 Pharmacy Profile Note (Patient Taking Own Medication) 3 each PO DAILY JANE Stop: 02/14/17 09:01 Pharmacy Profile Note (Patient Taking Own Medication) 2 each PO DAILY JANE Stop: 02/17/17 09:01 Pharmacy Profile Note (Patient Taking Own Medication) 1 each PO DAILY JANE Stop: 02/20/17 09:01 Pharmacy Profile Note (Patient Taking Own Medication) 0.5 each PO DAILY JANE Stop: 02/23/17 09:01 Tamsulosin HCl (Flomax) 0.8 mg PO DAILY JANE PRN Reason: Protocol Stop: 08/13/17 09:01 - EKG Interpretation EKG results cardiology: other (Telemetry reviewed with average heart rate past 12 hours 92, currently A. fib in the 90s on telemetry) - VTE Documentation of Mechanical Device: Graduated compression elastic hosiery Consult Discharge Plan - Plan Referrals: Chad Srivastava MD [Primary Care Provider] - (Web Requested 02-11-17)
[2017-02-11] MEDS ORDERED: PREDNISONE 10 MG PO SCH (09:00)
[2017-02-11] MEDS ORDERED: Metoprolol XL (24 HR) Succ 25 MG TAB.ER.24H PO SCH ×2 (09:00)
[2017-02-11] MEDS ORDERED: Losartan/HCTZ 50-12.5 TABLET PO SCH (09:00)
[2017-02-11] MEDS: Heparin 25,000 UNIT/500 ML D5W 25,000 UNIT/500 ML MLS IVC SCH (10:14)
[2017-02-11] MEDS ORDERED: 0.9 % Sodium Chloride 500 ML IVC ONE ×2 (11:57→11:59)
[2017-02-11] MEDS ORDERED: predniSONE 20 MG TABLET PO SCH (12:00)
[2017-02-11] MEDS ORDERED: 0.9 % Sodium Chloride 1,000 ML ONE (12:10)
[2017-02-11] MEDS: Hydrocortisone Sodium Succ 100 MG/2 ML VIAL IVP SCH ×3 (12:16→23:32)
--- NOTE | 2017-02-11 13:09 | Internal Med Progress Note ---
Date of Encounter: 02/11/17 Time of Encounter: 13:07 - Assessment and plan (1) SONNY (acute kidney injury) Current Visit: Yes Status: Acute Assessment and plan: May be related to hypotension from Cardizem. This is been discontinued. Patients getting a fluid bolus. Continue hydration normal 7 100 miles an hour. Hold nephrotoxic drugs. Patient is becoming acidotic. I will ask nephrology to see the patient (2) Sciatica Current Visit: Yes Status: Acute Assessment and plan: MRI of the lumbar spine will be performed. Consultation for spine surgery. Patient mentioned episodes of urine retention in the past 2 months. Still able to raise both lower extremities against gravity. Qualifiers: Qualified Code(s): M54.30 - Sciatica, unspecified side (3) Atrial fibrillation with RVR Current Visit: Yes Status: Acute Assessment and plan: Rate currently 90s to 100. Discontinue Cardizem drip (4) Pleural effusion Current Visit: Yes Status: Acute Assessment and plan: Patient is on ceftriaxone empirically for questionable infiltrates in left base. Continue - Subjective Interval history: Patient seen and examined. Actually his main complaint is right sciatic pain. His blood pressure has been lowish while his own Cardizem drip that has been discontinued. Urine output sluggish dark - Constitutional Vitals: Temp Pulse Resp BP Pulse Ox 97.5 F L 87 16 89/61 95 02/11/17 11:51 02/11/17 11:51 02/11/17 11:51 02/11/17 11:51 02/11/17 11:51 General appearance: Present: cooperative, mild distress (SOB with talking), A&O X 3, pleasant, obese, answers questions appropriately Exam: Gen.: patient is alert oriented times 3 not in distress. Cardiac: normal S1 S2 no additional sounds or murmurs chest: Dimished air entry in left base abdomen: soft nontender nondistended normal bowel sounds neuro: no focal deficit Internal Medicine: Result - Labs CBC & Chem 7: 02/11/17 00:56 02/11/17 00:56 Labs: Short CBC 02/10/17 02/11/17 Range/Units 15:46 00:56 WBC 12.5 H 13.8 H (4.3-11.1) K/mcL Hgb 15.4 15.1 (12.9-16.9) g/dL Hct 47.1 46.3 (37.5-50.1) % Plt Count 141 142 (140-400) K/mcL Neutrophils # 11.7 H (1.6-8.9) K/mcL BMP 02/11/17 00:56 Sodium 138 Potassium 4.2 Chloride 107 Carbon Dioxide 18 L BUN 45 H Creatinine 2.06 H Glucose 176 H Calcium 8.8 Cardiac Enzymes 02/10/17 Range/Units 19:25 Troponin I 0.08 H* (0-0.03) ng/mL Liver Function 02/11/17 Range/Units 00:56 Total Bilirubin 0.9 (0.2-1.2) mg/dL AST 36 H (5-34) Units/L ALT 40 (0-55) Units/L Alkaline Phosphatase 120 (38-126) Units/L Albumin 2.9 L (3.5-5.0) g/dL - ABG Interpretation ABG results: PT/INR, D-dimer PT 15.6 Seconds (9.4-12.1) H 02/10/17 15:46 - VTE Documentation of Mechanical Device: Graduated compression elastic hosiery Consult Discharge Plan - Plan Referrals: Chad Srivastava MD [Primary Care Provider] - (Web Requested 02-11-17)
--- NOTE | 2017-02-11 15:18 | Event Note ---
Date of Encounter: 02/11/17 Time of Encounter: 15:15 Called for a consult this afternoon by cardiology for worsening SCr and since I am off site, I reviewed the records with full consult to follow in the am. In brief, 72 yo male with PMH of Afib s/p ablation '13, CAD s/p CABG, HTN, BPH, testicular cancer and PVD admitted with SOB and found in Afib with greatly reduced EF. SCr trending up since from baseline of 1.08, GFR >60 and now at 2.6 , GFR 32 with possible LHC planned soon. Agree with holding off on LHC for now to stabilize kidney fxn. Agree with holding ARB/HCTZ for now. Agree wth gentle IVF given hypotension. Agree with liu and urologic eval. Will obtain US of kidney. Will check urine for sodium, creatinine and eosinophils. Will check uric acid and CPk levels. Will see in the am. Thanks for the consult!
[2017-02-11 19:59] LABS: Calcium 8.1 mg/dL (8.6-10.8); Potassium 4.4 mEq/L (3.5-4.5)
[2017-02-11 23:13] LABS: Creatinine,Urine 184 mg/dL
[2017-02-11 23:14] LABS: Sodium, Urine < 20.0 mEq/L
[2017-02-12 05:07] LABS: Basophils % 0.1 %; Hematocrit 50.7 % (37.5-50.1); Hemoglobin 16.1 g/dL (12.9-16.9); Immature Granulocytes % 0.8 % (0-4); Lymphocytes # 0.7 K/mcL (0.6-4.6); Lymphocytes % 6.1 %; Mean Corpuscular HGB Conc 31.8 g/dL (31.6-35.5); Mean Corpuscular Hemoglobin 31.1 pg (28.0-33.3); Mean Corpuscular Volume 97.9 fL (83.0-100.0); Mean Platelet Volume 12.8 fL (9.4-12.4); Monocytes # 0.7 K/mcL (0.0-1.3); Monocytes % 5.6 %; Neutrophils # 10.2 K/mcL (1.6-8.9); Nucleated Red Blood Cells 0.3 /100 WBC (0); Platelet Count 131 K/mcL (140-400); Red Blood Count 5.18 M/mcL (4.19-5.50); Red Cell Distribution Width 16.1 % (11.5-14.5); Segmented Neutrophils % 87.4 %
[2017-02-12 05:20] LABS: Calcium 8.5 mg/dL (8.6-10.8); Magnesium 1.7 mg/dL (1.6-2.6); Potassium 4.1 mEq/L (3.5-4.5)
[2017-02-12] MEDS ORDERED: Perflutren Lipid Microsphere 1.3 ML in 0.9 % Sodium Chloride 8.7 ML IVP ONE (07:15)
--- NOTE | 2017-02-12 08:10 | Cardiology Progress Note ---
Date of Encounter: 02/12/17 Time of Encounter: 08:10 Assessment and Plan (1) Atrial fibrillation with RVR Current Visit: Yes Status: Acute Per Cardiology: Continues to be in afib with avg HR past 12 hrs 115. BB now off d/t SBP in the 80's. IV Cardizem gtt off-- recommend avoid resuming now that EF is down. Off ARB/HCTZ to allow for SBP room for med titration and d/t OSNNY. Discussed and reviewed with Dr. Szymanski and Nephrology, will give IV Digoxin 0.25mg x 1 now for rate control. Would like to avoid amio since not currently anticoagulated. Attempted to add low dose Toprol this am, however RN reports current SBP in the 90's. Echo shows severe reduction on RV fxn and EF down to 15-20%-- will discuss with Dr. Szymanski. Regarding long-term anticoagulation, [id number] score 3: IV Hep gtt stopped yesterday and I had previous lengthy discussion with patient regarding long- term anticoagulation and interested in proceeding with [employer] ( [employer] ortega check $48 per month). However, d/t dark munguia colored urine in Ejnsen AC was held for now-- today urine dark tea colored and no further blood noted. Patient aware of increased stroke risk while not on anticoagulation. Will discuss and review again with Dr. Szymanski potential resuming AC, however would appreciate urology recs as well. (2) Elevated troponin Current Visit: Yes Status: Acute Per Cardiology: Troponin downtrending 0.10, now 0.07, likely 2/2 demand ischemia from A fib with rvr and SONNY. Chest pain-free. Had recent heart catheterization for abnormal stress test July 2016 which showed patent 2 of 3 bypass grafts with patent LEON to mid LAD, patent SVG to OM1, occluded SVG to right PDA. Additionally noted to have 90% stenosis in small diagonal that fills from Leon and supplies faint collaterals to a higher small diagonal/OM. On asa, BB-- now off d/t BP, previously intolerant to statin therapy. (3) Acute renal failure Current Visit: Yes Status: Acute Per Cardiology: Has been experiencing urinary retention suspected obstructive. Had pending outpatient urology appointment. Urology inpatient consult pending. Creatinine continue to eleavte up to 2.49. Patient discussed and reviewed with Nephrology. Historically normal kidney function. IVF stopped yestereday d/t decreased EF. Jensen catheter now drainign dark tea colored urine. Further management per primary service, nephrology, and urology. Off ELIJAH inhibitor/HCTZ. Qualifiers: Acute renal failure type: unspecified Qualified Code(s): N17.9 - Acute kidney failure, unspecified (4) Cardiomyopathy Current Visit: Yes Status: Acute Per Cardiology: Patient with conversational dyspnea, slightly improved today, now on RA. BNP mildly elevated at 374. Euvolemic on exam. Last echo July 2014 showed EF preserved at 60%. Current echo shows EF 15-20%, RV size with severe reduction in global function, mild MR, cnkw-fq-zbbrkwpi TR, mild [place]. IVF off for now. Qualifiers: Cardiomyopathy type: unspecified Qualified Code(s): I42.9 - Cardiomyopathy , unspecified (5) Pleural effusion Current Visit: Yes Status: Acute Per Cardiology: Noted to have small to moderate left pleural effusion on chest x-ray. Discussion w patient/family: The assessment and plan as outlined above was discussed with the patient who expressed understanding and agreement. All questions were answered. Thank you for involving us in the care of your patient. Please call with any questions. Patient is DNR/DNI/CCA. Consider transfer to higher acuity floor with muliple comorbid conditions. Patient discussed with primary service. Subjective Principal diagnosis: Afib RVR Interval history: Patient denies any chest pain or palpitations. Reports shortness of breath slightly improved. Objective Vital Signs, Last 4 Hours Temp Pulse Resp BP Pulse Ox 02/12/17 04:22 97.5 F L 100 16 123/84 98 General: Conversant, No Apparent Distress HEENT: Atraumatic, Normocephaly, Mucus Membranes Moist Cardiac: No Murmur, Other (Irregularly irregular) Lungs: Normal Breath Sounds, No Wheeze, Rales, Rhonchi Neuro: Alert and responsive, No focal deficits noted Abdomen: Soft, Non-Tender Musculoskeletal: No Chest Wall Tenderness Extremities: No Edema, Normal Pulses Results 02/12/17 04:47 02/12/17 04:47 Lab Results Laboratory Tests 02/12/17 04:47 Creatinine 2.49 H Est GFR (Non-Af Amer) 26 L Impressions Lumbar Spine MRI 02/11/17 12:02 IMPRESSION: 1. Degenerative changes of the lumbar spine contribute to minimal spinal canal stenosis at L2-L3 through L4-L5. 2. Degenerative changes contribute to multilevel neural foraminal narrowing as above. 3. There are nonspecific T1/T 2 hypointense lesions within the L5 and S1 vertebral bodies, which were present on the prior exam. These may represent areas of sclerosis. D/ / Ander Luke MD / Ander Luke MD Interpreting Provider: Ander Luke MD Intake & Output 02/09/17 02/10/17 02/11/17 02/12/17 23:59 23:59 23:59 23:59 Intake Total 3701 / 3701 1544 / 1544 Output Total 300 / 300 150 / 150 Balance 3401 / 3401 1394 / 1394 Weight 91.399 kg 91.5 kg 95.889 kg Active Medications Acetaminophen (Tylenol) 650 mg PO Q6HR PRN PRN Reason: Mild Pain (1-3) Stop: 08/12/17 10:59 Last Admin: 02/10/17 18:27 Dose: 650 mg Aspirin (Aspirin) 81 mg PO DAILY [facility] Stop: 08/13/17 09:01 Last Admin: 02/11/17 08:30 Dose: 81 mg Hydrocortisone Sodium Succinate (Solu-Cortef) 100 mg IVP Q8HR JANE Stop: 08/13/17 13:01 Last Admin: 02/11/17 23:32 Dose: 100 mg Ceftriaxone Sodium 1,000 mg/ (Dextrose) 100 mls @ 200 mls/hr IVPB DAILY JANE Stop: 08/12/17 12:01 Last Admin: 02/11/17 08:31 Dose: 200 mls/hr Lactulose (Lactulose) 10 gm PO BID JANE Stop: 08/12/17 12:01 Last Admin: 02/11/17 21:04 Dose: 10 gm Magnesium Hydroxide (Milk Of Magnesia Conc) 10 ml PO DAILY PRN PRN Reason: Indigestion Stop: 08/12/17 10:59 Naloxone HCl (Narcan) 0.4 mg IVP Q2MIN PRN PRN Reason: Opioid Reversal Stop: 08/12/17 10:59 Ondansetron HCl (Zofran) 4 mg IVP Q8HR PRN PRN Reason: Nausea And Vomiting Stop: 08/12/17 10:59 Last Admin: 02/11/17 10:10 Dose: 4 mg Tamsulosin HCl (Flomax) 0.8 mg PO DAILY JANE PRN Reason: Protocol Stop: 08/13/17 09:01 Last Admin: 02/11/17 08:31 Dose: 0.8 mg - Imaging and Cardiology Echo: report reviewed - EKG Interpretation EKG results cardiology: other (Plan is reviewed with average heart rate 115 the past 12 hours, remains A. fib in the 100s on telemetry) - VTE Documentation of Mechanical Device: Graduated compression elastic hosiery Consult Discharge Plan - Plan Referrals: Chad Srivastava MD [Primary Care Provider] - (Web Requested 02-11-17)
[2017-02-12] MEDS ORDERED: PREDNISONE 10 MG PO SCH (09:00)
[2017-02-12] MEDS ORDERED: Metoprolol XL (24 HR) Succ 25 MG TAB.ER.24H PO SCH ×3 (09:00→21:30)
[2017-02-12] MEDS: Hydrocortisone Sodium Succ 100 MG/2 ML VIAL IVP SCH ×2 (09:20→16:36)
[2017-02-12] MEDS: Lactulose Oral Soln 20 GM/30 ML UDC PO SCH ×2 (09:21→20:51)
[2017-02-12] MEDS: Aspirin 81 MG TAB.CHEW PO SCH (09:21)
[2017-02-12] MEDS ORDERED: *HR* Digoxin 0.5 MG/2 ML AMPUL IVP ONE (10:16)
[2017-02-12] MEDS ORDERED: *HR* Heparin 5,000 UNIT/ML VIAL IVP PRN ×2 (12:27)
[2017-02-12] MEDS ORDERED: *HR* Heparin 5,000 UNIT/ML VIAL IVP ONE (12:27)
--- NOTE | 2017-02-12 12:44 | Internal Med Progress Note ---
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 will be management by cardiology continue tele monitoring (2) Ezmil-tq-gxdabgj kidney injury Current Visit: Yes Status: Acute Assessment and plan: Renal function continues to worsen nephrology on board awaiting renal US holding nephrotoxic agents closely monitoring BP (3) Pleural effusion Current Visit: Yes Status: Acute Assessment and plan: Patient is on ceftriaxone empirically for questionable infiltrates in left base , will continue at this time (4) DVT prophylaxis Current Visit: Yes Status: Acute Assessment and plan: anticoagulated with heparin gtt (5) Sciatica Current Visit: Yes Status: Acute Assessment and plan: MRI of the lumbar spine will be performed. Consultation for spine surgery-Dr. Mcmillan to see the patient Patient mentioned episodes of urine retention in the past 2 months. Still able to raise both lower extremities against gravity. Reports of having history of epidural injection in L spine for chronic pain Qualifiers: Qualified Code(s): M54.30 - Sciatica, unspecified side (6) Cardiomyopathy Current Visit: Yes Status: Chronic Qualifiers: Cardiomyopathy type: unspecified Qualified Code(s): I42.9 - Cardiomyopathy , unspecified - Subjective Interval history: Pt seen and examined at bedside. Resting in bed and reports of feeling better. Denies any lower back pain at this time. States this is the best he has felt in days and the pain is appropriately controlled. Pt's hematuria resolved. No overnight issues reported. - Constitutional Vitals: Temp Pulse Resp BP Pulse Ox 97.8 F 92 14 111/75 92 02/12/17 11:49 02/12/17 11:49 02/12/17 11:49 02/12/17 11:49 02/12/17 11:49 General appearance: Present: cooperative, A&O X 3, pleasant, no acute distress, obese, answers questions appropriately - Head Head exam: Present: atraumatic, normocephalic - Eye Eye exam: Present: normal appearance, conjuntiva pink, sclera anicteric - Respiratory Respiratory exam: Present: CTAB. Absent: accessory muscle use, rales, rhonchi, wheezes - Cardiovascular Cardiovascular exam: Present: RRR, +S1, +S2. Absent: diastolic murmur, gallop, rubs, systolic murmur - GI/Abdominal GI/Abdominal exam: Present: normal bowel sounds, soft, no peritoneal signs. Absent: distended, tenderness - Extremities Exam Extremities exam: Present: pedal edema, warm, radial pulses palpable and symetrical. Absent: calf tenderness - Neurological Exam Neurological exam: Present: alert, oriented X3 - Psychiatric Psychiatric exam: Present: normal affect, normal mood Internal Medicine: Result - Labs CBC & Chem 7: 02/12/17 04:47 02/12/17 04:47 Labs: Short CBC 02/12/17 Range/Units 04:47 WBC 11.7 H (4.3-11.1) K/mcL Hgb 16.1 (12.9-16.9) g/dL Hct 50.7 H (37.5-50.1) % Plt Count 131 L (140-400) K/mcL Neutrophils # 10.2 H (1.6-8.9) K/mcL BMP 02/11/17 02/12/17 19:40 04:47 Sodium 141 139 Potassium 4.4 4.1 Chloride 107 102 Carbon Dioxide 19 23 BUN 55 H 60 H Creatinine 2.27 H 2.49 H Glucose 165 H 144 H Calcium 8.1 L 8.5 L - ABG Interpretation ABG results: PT/INR, D-dimer PT 15.6 Seconds (9.4-12.1) H 02/10/17 15:46 - Impressions Impressions Lumbar Spine MRI 02/11/17 12:02 IMPRESSION: 1. Degenerative changes of the lumbar spine contribute to minimal spinal canal stenosis at L2-L3 through L4-L5. 2. Degenerative changes contribute to multilevel neural foraminal narrowing as above. 3. There are nonspecific T1/T 2 hypointense lesions within the L5 and S1 vertebral bodies, which were present on the prior exam. These may represent areas of sclerosis. D/ / Ander Luke MD / Ander Luke MD Interpreting Provider: Ander Luke MD - VTE Documentation of Mechanical Device: Graduated compression elastic hosiery Consult Discharge Plan - Plan Referrals: Chad Srivastava MD [Primary Care Provider] - (Web Requested 02-11-17)
[2017-02-12 12:54] LABS: Hematocrit 48.3 % (37.5-50.1); Hemoglobin 15.3 g/dL (12.9-16.9); Immature Platelets 16.3 % (1.1-6.1); Mean Corpuscular HGB Conc 31.7 g/dL (31.6-35.5); Mean Corpuscular Hemoglobin 30.7 pg (28.0-33.3); Mean Platelet Volume 12.6 fL (9.4-12.4); Red Blood Count 4.98 M/mcL (4.19-5.50); Red Cell Distribution Width 15.9 % (11.5-14.5)
[2017-02-12 12:59] LABS: INR 1.4; Prothrombin Time 15.2 Seconds (9.4-12.1)
[2017-02-12 13:03] LABS: Activated Partial Thrombo Time 26.8 Seconds (26.0-36.0)
[2017-02-12] MEDS: Heparin 25,000 UNIT/500 ML D5W 25,000 UNIT/500 ML MLS IVC SCH (14:33)
--- NOTE | 2017-02-12 15:13 | Nephrology Consult Note ---
Date of Encounter: 02/12/17 Time of Encounter: 11:30 Assessment and Plan (1) SONNY (acute kidney injury) Current Visit: Yes Status: Acute SONNY in the setting of Afib and urinary retention rule out hypoperfusion va obstruction US of kidney still pending after being ordered yesterday, will check bladder scan and proceed with CT Urine sodium <20 and elevated uric acid consistent with pre-renal state, encouraged po fluids (2) Atrial fibrillation with RVR Current Visit: Yes Status: Acute (3) Urinary retention Current Visit: Yes Status: Acute urology eval still pending History of Present Illness - Reason for Consult Consult date: 02/12/17 Chronic Kidney Disease - History of Present Illness 72 y o male with PMH of BPH Past Med Surg Social Fam HX - Past Medical History Medical history: atrial fibrillation, coronary artery disease, hypertension Psychiatric history: no psych history - Past Surgical History Surgical History: angioplasty/stent, cataract, coronary bypass (CABG), herniorrhaphy, LE stent(s), splenectomy, other (Removal of right testicle due to testicular cancer) - Social History Smoking Status: Former smoker Packs per day: 4 PPD Smokeless Tobacco Status: No Alcohol use: none Drug use: none - Family History Mother Race: Family Member Ethnicity: Non- Living Status: Age at : 79 Cause of : [place] Hx Family Cardiac Disorders: Yes ([place]) Father Race: Family Member Ethnicity: Non- Living Status: Age at : 51 Cause of : [place] Hx Family Cardiac Disorders: Yes ([place]) Medications and Allergies Aspirin 81 mg PO DAILY 07/20/16 [History] Clopidogrel [Plavix] 75 mg PO DAILY 07/20/16 [History] Losartan/Hydrochlorothiazide [Hyzaar 100-25 Tablet] 1 tab PO DAILY 07/20/16 [ History] Metoprolol XL (24 HR) Succ [Toprol Xl] 25 mg PO DAILY 07/20/16 [History] Tamsulosin [Flomax] 0.8 mg PO DAILY 07/20/16 [History] predniSONE [PredniSONE] 10 mg PO TAPER 02/10/17 [History] Allergies Penicillins Adverse Reaction (Verified 07/20/16 07:33) See Comments randa ramipril [From Altace] Adverse Reaction (Verified 07/20/16 07:33) Cough Ucqlvtz-Zuk-Fqh Reductase Inhibitor [Statins] Adverse Reaction (Verified 07:33) Muscle Pain Exam - Vital Signs Vital signs: Initial Vital Signs Temp Pulse Resp BP Pulse Ox 97.5 F L 182 16 142/116 95 02/10/17 08:50 02/10/17 08:50 02/10/17 08:50 02/10/17 08:50 02/10/17 08:50 Vital Signs - Last 8 Hours Temp Pulse Resp BP Pulse Ox 02/12/17 11:49 97.8 F 92 14 111/75 92 02/12/17 08:43 97.6 F 102 14 95/70 94 Intake and Output 02/11/17 02/12/17 02/12/17 23:59 07:59 15:59 Intake Total 600 / 600 Output Total 150 / 150 300 / 300 Balance -150 / -150 300 / 300 Intake: Oral 600 / 600 Output: Urine 150 / 150 300 / 300 Other: Meal Lunch Percent of Meal Consumed 100% Weight 95.889 kg Patient Weight 02/12/17 23:59 Weight 95.889 kg Results - Lab Results 02/12/17 12:40 02/12/17 04:47 Most recent lab results Calcium 8.5 mg/dL (8.6-10.8) L 02/12/17 04:47 Magnesium 1.7 mg/dL (1.6-2.6) 02/12/17 04:47 Urine Creatinine 184 mg/dL 02/11/17 22:46 Urine Sodium < 20.0 mEq/L 02/11/17 22:46 Consult Discharge Plan - Plan Referrals: Chad Srivastava MD [Primary Care Provider] - (Web Requested 02-11-17)
--- NOTE | 2017-02-12 20:05 | Urology - Consult Note ---
Date of Encounter: 02/12/17 Time of Encounter: 20:03 - Assessment and Plan (1) Difficulty urinating Current Visit: Yes Status: Acute Assessment and plan: the patient was scheduled for a office cystoscopy on Monday to determine the etiology for his urinary symptoms. the procedure was canceled because the patient was admitted. I suspect BPH with outlet obstruction as He does have a history. he still requires office cystoscopy prior to any surgical intervention. Hold off on any urologic intervention until all cardiac issues addressed and stable. Okay with any anticoagulation needed but we will need to watch for hematuria. (2) Gross hematuria Current Visit: Yes Status: Acute Assessment and plan: we will watch closely for increasing hematuria with anticoagulation Urology CN:HPI Consult date: 02/10/17 Reason for consult Urology: Other History of present illness: patient recently seen in the urology office for difficulty urinating. History of TURP 20 years ago. Increased difficulty with urination thought to be due to excessive use of cold and sinus medications. In and out catheter revealed [id number] mL of urine. admitted with ARito fib RVR. Catheter in place with similar residual Past Med Surg Social Fam HX - Past Medical History Medical history: atrial fibrillation, coronary artery disease, hypertension Psychiatric history: no psych history - Past Surgical History Surgical History: angioplasty/stent, cataract, coronary bypass (CABG), herniorrhaphy, LE stent(s), splenectomy, other (Removal of right testicle due to testicular cancer) - Social History Smoking Status: Former smoker Packs per day: 4 PPD Smokeless Tobacco Status: No Alcohol use: none Drug use: none - Family History Mother Race: Family Member Ethnicity: Non- Living Status: Age at : 79 Cause of : [place] Hx Family Cardiac Disorders: Yes ([place]) Father Race: Family Member Ethnicity: Non- Living Status: Age at : 51 Cause of : [place] Hx Family Cardiac Disorders: Yes ([place]) Medications and Allergies Aspirin 81 mg PO DAILY 07/20/16 [History] Clopidogrel [Plavix] 75 mg PO DAILY 07/20/16 [History] Losartan/Hydrochlorothiazide [Hyzaar 100-25 Tablet] 1 tab PO DAILY 07/20/16 [ History] Metoprolol XL (24 HR) Succ [Toprol Xl] 25 mg PO DAILY 07/20/16 [History] Tamsulosin [Flomax] 0.8 mg PO DAILY 07/20/16 [History] predniSONE [PredniSONE] 10 mg PO TAPER 02/10/17 [History] Allergies Penicillins Adverse Reaction (Verified 07/20/16 07:33) See Comments welts ramipril [From Altace] Adverse Reaction (Verified 07/20/16 07:33) Cough Zaibslc-Xvx-Akd Reductase Inhibitor [Statins] Adverse Reaction (Verified 07:33) Muscle Pain Review of Systems - Constitutional no chills, no fever(s) - EENT Nose, mouth and throat: no dizziness - Cardiovascular chest pain - Respiratory dyspnea - Gastrointestinal no abdominal pain - Genitourinary difficulty urinating - Musculoskeletal no back pain - Integumentary no erythema - Neurological no confusion - Psychiatric no anxiety - Hematologic/Lymphatic no easy bleeding - Allergic/Immunologic no throat swelling Exam Initial Vital Signs Temp Pulse Resp BP Pulse Ox 97.5 F L 182 16 142/116 95 02/10/17 08:50 02/10/17 08:50 02/10/17 08:50 02/10/17 08:50 02/10/17 08:50 - General physical appearance Present: well developed, no distress - Eyes Present: PERRL - ENT Present: normal nares - Neck Present: no masses - Respiratory Present: normal respiratory effort - Abdomen Abdomen: Present: soft - Integumentary Present: no rash, no growths - Neurologic Present: normal coordination. Absent: disoriented, confused - Additional Findings Jensen catheter with clear urine Urology Results - Labs 02/12/17 12:40 02/12/17 04:47 Abnormal lab results WBC 14.0 K/mcL (4.3-11.1) H 02/12/17 12:40 RDW 15.9 % (11.5-14.5) H 02/12/17 12:40 Plt Count 127 K/mcL (140-400) L 02/12/17 12:40 MPV 12.6 fL (9.4-12.4) H 02/12/17 12:40 Neutrophils # 10.2 K/mcL (1.6-8.9) H 02/12/17 04:47 Nucleated RBCs/100 WBC 0.3 /100 WBC (0) H 02/12/17 04:47 Immature Plt Fraction 16.3 % (1.1-6.1) H 02/12/17 12:40 PT 15.2 Seconds (9.4-12.1) H 02/12/17 12:40 BUN 60 mg/dL (8-26) H 02/12/17 04:47 Creatinine 2.49 mg/dL (0.72-1.25) H 02/12/17 04:47 Est GFR ( Amer) 31 (> 60) L 02/12/17 04:47 Est GFR (Non-Af Amer) 26 (> 60) L 02/12/17 04:47 Glucose 144 mg/dL (70-99) H 02/12/17 04:47 Calculated Osmolality 307 (280-300) H 02/12/17 04:47 Lactic Acid 2.3 mmol/L (0.5-2.2) H 02/11/17 20:36 Uric Acid 11.0 mg/dL (3.5-7.2) H 02/11/17 19:40 Calcium 8.5 mg/dL (8.6-10.8) L 02/12/17 04:47 AST 36 Units/L (5-34) H 02/11/17 00:56 Troponin I 0.08 ng/mL (0-0.03) H* 02/10/17 19:25 B-Natriuretic Peptide 374 pg/mL (0-100) H 02/10/17 11:04 Albumin 2.9 g/dL (3.5-5.0) L 02/11/17 00:56 Albumin/Globulin Ratio 0.9 (1.1-2.2) L 02/11/17 00:56 Cholesterol 206 mg/dL (< 200) H 02/10/17 12:31 LDL Cholesterol, Calc 139 mg/dL (0-99) H 02/10/17 12:31 Diabetes panel 02/12/17 Range/Units 04:47 Sodium 139 (136-145) mEq/L Potassium 4.1 (3.5-4.5) mEq/L Chloride 102 (98-109) mEq/L Carbon Dioxide 23 (19-29) mEq/L BUN 60 H (8-26) mg/dL Creatinine 2.49 H (0.72-1.25) mg/dL Glucose 144 H (70-99) mg/dL Calcium 8.5 L (8.6-10.8) mg/dL Calcium panel 02/12/17 Range/Units 04:47 Calcium 8.5 L (8.6-10.8) mg/dL Pituitary panel 02/12/17 Range/Units 04:47 Sodium 139 (136-145) mEq/L Potassium 4.1 (3.5-4.5) mEq/L Chloride 102 (98-109) mEq/L Carbon Dioxide 23 (19-29) mEq/L BUN 60 H (8-26) mg/dL Creatinine 2.49 H (0.72-1.25) mg/dL Glucose 144 H (70-99) mg/dL Calcium 8.5 L (8.6-10.8) mg/dL Adrenal panel 02/12/17 Range/Units 04:47 Sodium 139 (136-145) mEq/L Potassium 4.1 (3.5-4.5) mEq/L Chloride 102 (98-109) mEq/L Carbon Dioxide 23 (19-29) mEq/L BUN 60 H (8-26) mg/dL Creatinine 2.49 H (0.72-1.25) mg/dL Glucose 144 H (70-99) mg/dL Calcium 8.5 L (8.6-10.8) mg/dL All other labs normal. Consult Discharge Plan - Plan Referrals: Chad Srivastava MD [Primary Care Provider] - (Web Requested 02-11-17)
[2017-02-12] MEDS: Sennosides/Docusate Sodium TABLET PO SCH (20:51)
[2017-02-12 22:38] LABS: Activated Partial Thrombo Time > 360.0 Seconds (26.0-36.0)
[2017-02-12 22:50] LABS: Heparin anti-factor XA UFH 1.43 IU/mL (0.30-0.70)
[2017-02-13] MEDS: Hydrocortisone Sodium Succ 100 MG/2 ML VIAL IVP SCH ×4 (00:06→23:57)
[2017-02-13] MEDS ORDERED: *HR* Digoxin 0.5 MG/2 ML AMPUL IVP ONE (01:44)
[2017-02-13 05:52] LABS: Activated Partial Thrombo Time 116.3 Seconds (26.0-36.0)
[2017-02-13 05:53] LABS: Basophils % 0.1 %; Eosinophils % 0.1 %; Hematocrit 47.6 % (37.5-50.1); Hemoglobin 15.4 g/dL (12.9-16.9); Immature Platelets 18.8 % (1.1-6.1); Lymphocytes # 0.7 K/mcL (0.6-4.6); Lymphocytes % 4.6 %; Mean Corpuscular HGB Conc 32.4 g/dL (31.6-35.5); Mean Corpuscular Hemoglobin 31.6 pg (28.0-33.3); Mean Corpuscular Volume 97.5 fL (83.0-100.0); Mean Platelet Volume 12.7 fL (9.4-12.4); Monocytes # 0.9 K/mcL (0.0-1.3); Nucleated Red Blood Cells 1.6 /100 WBC (0); Platelet Count 104 K/mcL (140-400); Red Blood Count 4.88 M/mcL (4.19-5.50); Red Cell Distribution Width 15.8 % (11.5-14.5); Segmented Neutrophils % 88.2 %
[2017-02-13 05:59] LABS: Heparin anti-factor XA UFH 0.8 IU/mL (0.30-0.70)
[2017-02-13 06:21] LABS: Calcium 8.2 mg/dL (8.6-10.8); Magnesium 1.9 mg/dL (1.6-2.6); Phosphorous 4.3 mg/dL (2.3-4.7); Potassium 4.2 mEq/L (3.5-4.5)
--- NOTE | 2017-02-13 08:09 | Cardiology Progress Note ---
Date of Encounter: 02/13/17 Time of Encounter: 08:10 Assessment and Plan (1) Atrial fibrillation with RVR Current Visit: Yes Status: Acute Per Cardiology: Continues to be in afib with avg HR past 12 hrs 124. IV Cardizem gtt off-- recommend avoid resuming now that EF is down. Off ARB/HCTZ to allow for SBP room for med titration and d/t SONNY. Received IV Digoxin 0.25mg x 1 yesterday. SBP now 120's-140's, will resume BB-- Toprol XL 12.5mg PO BID. Will consider amio if needed (now back on IV Hep gtt). Echo shows severe reduction on RV fxn and EF down to 15-20%-- possible LHC tomorrow pending kidney fxn, although suspect will need to wait on cath. Regarding long-term anticoagulation, [id number] score 3: IV Hep gtt now resumed with resolution of hematuria. Currently no hematuria noted . Will monitor and consider Eliquis if no bleeding and once LHC completed. I had previous lengthy discussion with patient regarding long-term anticoagulation and interested in proceeding with Eliquis ( Eliquis ortega check $48 per month). (2) Elevated troponin Current Visit: Yes Status: Acute Per Cardiology: Troponin downtrending 0.10, now 0.07, likely 2/2 demand ischemia from A fib with rvr and SONNY. Chest pain-free. Had recent heart catheterization for abnormal stress test July 2016 which showed patent 2 of 3 bypass grafts with patent LEON to mid LAD, patent SVG to OM1, occluded SVG to right PDA. Additionally, noted to have 90% stenosis in small diagonal that fills from Leon and supplies faint collaterals to a higher small diagonal/OM. On asa, BB, previously intolerant to statin therapy. (3) Acute renal failure Current Visit: Yes Status: Acute Per Cardiology: Has been experiencing urinary retention suspected obstructive. Off ELIJAH inhibitor /HCTZ. Creat peak 2.49, now 1.98 today. Historically normal kidney function. Off IVF d/t decreased EF. Jensen with dark yellow urine today. Further management per primary service, nephrology, and urology. Qualifiers: Acute renal failure type: unspecified Qualified Code(s): N17.9 - Acute kidney failure, unspecified (4) Cardiomyopathy Current Visit: Yes Status: Chronic Per Cardiology: Patient with conversational dyspnea, slightly improved today, now on RA. BNP mildly elevated at 374. Euvolemic on exam. Last echo July 2014 showed EF preserved at 60%. Current echo shows EF 15-20%, RV size with severe reduction in global function, mild MR, [id number] TR, mild IL. IVF off for now. Qualifiers: Cardiomyopathy type: unspecified Qualified Code(s): I42.9 - Cardiomyopathy , unspecified (5) Pleural effusion Current Visit: Yes Status: Acute Per Cardiology: Noted to have small to moderate left pleural effusion on chest x-ray. Discussion w patient/family: The assessment and plan as outlined above was discussed with the patient who expressed understanding and agreement. All questions were answered. Thank you for involving us in the care of your patient. Please call with any questions. Patient is DNR/DNI/CCA. Palliative care following. Subjective Principal diagnosis: Afib RVR Interval history: Patient denies any chest pain or palpitations. Reports shortness of breath slightly improved. Denies any bleeding or blood loss. Denies any concerns today. Objective Vital Signs, Last 4 Hours Temp Pulse Resp BP Pulse Ox 02/13/17 07:44 97.6 F 102 18 148/85 96 General: Conversant, No Apparent Distress HEENT: Atraumatic, Normocephaly, Mucus Membranes Moist Cardiac: Reg Rate and Rhythm, Normal S1 and S2, No Murmur Lungs: Normal Breath Sounds, No Wheeze, Rales, Rhonchi Neuro: Alert and responsive, No focal deficits noted Abdomen: Soft, Non-Tender Skin: No rashes noted on visualized skin Musculoskeletal: No Chest Wall Tenderness Extremities: No Clubbing, No Cyanosis, No Edema, Normal Pulses Other: Jensen draining dark yellow urine Results 02/13/17 05:12 02/13/17 05:12 Lab Results Laboratory Tests 02/13/17 05:12 Hgb 15.4 Hct 47.6 Intake & Output 02/10/17 02/11/17 02/12/17 02/13/17 23:59 23:59 23:59 23:59 Intake Total 3701 / 3701 1644 / 1644 782 / 782 120 / 120 Output Total 300 / 300 150 / 150 600 / 600 Balance 3401 / 3401 1494 / 1494 182 / 182 120 / 120 Weight 91.399 kg 91.5 kg 95.889 kg 96.2 kg Active Medications Acetaminophen (Tylenol) 650 mg PO Q6HR PRN PRN Reason: Mild Pain (1-3) Stop: 08/12/17 10:59 Last Admin: 02/10/17 18:27 Dose: 650 mg Aspirin (Aspirin) 81 mg PO DAILY [facility] Stop: 08/13/17 09:01 Last Admin: 02/12/17 09:21 Dose: 81 mg Heparin Sodium (Porcine) (Heparin) 6,700 unit 70 unit/kg (6700 unit) IVP Q6HR PRN PRN Reason: SEE COMMENTS Stop: 08/14/17 12:28 Heparin Sodium (Porcine) (Heparin) 3,400 unit 35 unit/kg (3400 unit) IVP Q6H PRN PRN Reason: SEE COMMENTS Stop: 08/14/17 12:28 Hydrocortisone Sodium Succinate (Solu-Cortef) 100 mg IVP Q8HR [facility] Stop: 08/13/17 13:01 Last Admin: 02/13/17 00:06 Dose: 100 mg Ceftriaxone Sodium 1,000 mg/ (Dextrose) 100 mls @ 200 mls/hr IVPB DAILY [facility] Stop: 08/12/17 12:01 Last Admin: 02/12/17 09:22 Dose: 200 mls/hr Heparin Sodium/Dextrose (Heparin 25,000 Unit/500 Ml D5w) 25,000 unit in 500 mls @ 26.849 mls/hr IVC .[id number] JANE; 14 UNIT/KG/HR PRN Reason: Protocol Stop: 08/14/17 12:31 Last Titration: 02/13/17 07:04 Dose: 8 unit/kg/hr, 15.342 mls/hr Lactulose (Lactulose) 10 gm PO BID [facility] Stop: 08/12/17 12:01 Last Admin: 02/12/17 20:51 Dose: Not Given Magnesium Hydroxide (Milk Of Magnesia Conc) 10 ml PO DAILY PRN PRN Reason: Indigestion Stop: 08/12/17 10:59 Metoprolol Succinate (Toprol Xl) 12.5 mg PO DAILY [facility] Stop: 08/14/17 10:30 Naloxone HCl (Narcan) 0.4 mg IVP Q2MIN PRN PRN Reason: Opioid Reversal Stop: 08/12/17 10:59 Ondansetron HCl (Zofran) 4 mg IVP Q8HR PRN PRN Reason: Nausea And Vomiting Stop: 08/12/17 10:59 Last Admin: 02/11/17 10:10 Dose: 4 mg Senna/Docusate Sodium (Senna Plus) 1 each PO BID JANE PRN Reason: Protocol Stop: 08/14/17 21:01 Last Admin: 02/12/17 20:51 Dose: Not Given Tamsulosin HCl (Flomax) 0.8 mg PO DAILY JANE PRN Reason: Protocol Stop: 08/13/17 09:01 Last Admin: 02/12/17 09:20 Dose: 0.8 mg - Imaging and Cardiology Echo: report reviewed Cardiac cath: pending - EKG Interpretation EKG results cardiology: other (avg HR on tele 124 past 12 hrs, afib, currently 100's) - VTE Documentation of Mechanical Device: Graduated compression elastic hosiery Consult Discharge Plan - Plan Referrals: Chad Srivastava MD [Primary Care Provider] - (Web Requested 02-11-17)
[2017-02-13] MEDS: Lactulose Oral Soln 20 GM/30 ML UDC PO SCH ×2 (08:37→20:21)
[2017-02-13] MEDS: Sennosides/Docusate Sodium TABLET PO SCH ×2 (08:37→20:21)
[2017-02-13] MEDS: Aspirin 81 MG TAB.CHEW PO SCH (08:38)
[2017-02-13] MEDS: Metoprolol XL (24 HR) Succ 25 MG TAB.ER.24H PO SCH ×2 (09:34→20:21)
--- NOTE | 2017-02-13 10:15 | Palliative - Consult Note ---
Date of Encounter: 02/13/17 Time of Encounter: 09:30 - Assessment and Plan (1) Pain Current Visit: No Status: Acute Assessment and plan: Patient with history of laminectomy and now reports sciatic pain to right leg. Equal push and pull but reports that nerve pain shoots down leg with various movements. Reports BM this AM with some straining difficulty. Jensen catheter to straight drain with moderate amount slightly dark yellow urine. Discussed home medication list and usual treatment of pain. Patient reports he doesn't like to take pain medication. Tylenol only as needed. Pending orthopedic consult for back pain evaluation. Will add Eugene to plan if patient desires something stronger for comfort. Will monitor. (2) Constipation Current Visit: No Status: Acute Assessment and plan: Patient has 2 BMs this AM but reports straining to have bowel movement. Patient with history lumbar pain and now with sciatic nerve pain. Currently on bowel regimen of lactulose, Senna and MOM. Will add stool softner for comfort. Continue to monitor. Qualifiers: Constipation type: unspecified constipation type Qualified Code(s): K59.00 - Constipation, unspecified (3) Goals of care, counseling/discussion Current Visit: Yes Status: Acute Assessment and plan: Patient is currently a DNRCC-A, DNI. Patient reports living alone with no family nearby. He states that he lives like a hermit and enjoys his alone time. Cardiology is going to perform LHC once renal labs have improved. BUN 68, Creatinine 1.98 and GFR 40. Patient to be NPO after midnight. Patient understands his overall cardiac function has declined and understands outcomes of poor EF%. He desires aggressive management and is also being followed by Urology for [facility] and is now awaiting a Surgical consult for his sciatic pain. Goals of care are to return home and live alone. His baseline activity is that he is very active and independent and is able to manage his own medications. Patient has ongoing OT consult. Patient reports having testicular cancer with removal of right testicle years ago. Patient is former smoker of 4 PPD. PC team will follow outcome of sciatic pain and LHC results and adjust plan as needed for now. Thank you for the consult. (4) Atrial fibrillation with RVR Current Visit: Yes Status: Acute Assessment and plan: Haparin gtt, toprol and ASA. Cardiology following. (5) Urinary retention Current Visit: Yes Status: Acute Assessment and plan: Jensen catheter in place for accurate I&O. Urology following. (6) Sciatica Current Visit: Yes Status: Acute Assessment and plan: Pending surgical consult for back pain and sciatica. Qualifiers: Qualified Code(s): M54.30 - Sciatica, unspecified side (7) Erzyx-qc-fzeajzc kidney injury Current Visit: Yes Status: Acute Assessment and plan: Improving with labs trending down. (8) Gross hematuria Current Visit: No Status: Acute Assessment and plan: Resolved and heparin restarted per Cardiology. Palliative-CN HPI - Data of Consult Patient: new to practice Consult date: 02/13/17 Requesting Physician: Jin Haile Primary Care Provider: Chad Srivastava MD - Consult Narrative Palliative Care/Comfort Measures: Palliative care Reason for consult: GOC - End Stage HF History of present illness: Mr. Chavez is a 72 year old male on day 3 of his hospital admission. Admitted from Cardiology office with SOB and palpitations. Patient reported symptoms of SOB upon arrival. Patient found to be in atrial fibrillation being treated with Heparin gtt and medications. Patient with history of triple bypass graft (CABG) , LV stents and previous heart catheterization on 07/20/16. Patient is alert and oriented. This palliative care consult is for goals of care discussion. CC: Yary Ashby MD Past Med Surg Social Fam HX - Past Medical History Source: patient, old records reviewed Medical history: atrial fibrillation, cancer (testicular), coronary artery disease, hypertension Psychiatric history: no psych history - Past Surgical History Surgical History: angioplasty/stent, cataract, coronary bypass (CABG), herniorrhaphy, LE stent(s), splenectomy, other (Removal of right testicle due to testicular cancer) - Social History Smoking Status: Former smoker Packs per day: 4 PPD Smokeless Tobacco Status: No Alcohol use: none Drug use: none Occupational status: unemployed Current living situation: Home - Independent Activity Level: Independent ambulation Recent Out of Country Travel Within the Last 8 Weeks: No Exposure or Possible Exposure to Illness During Travel: No - Family History Mother Race: Family Member Ethnicity: Non- Living Status: Age at : 79 Cause of : [place] Hx Family Cardiac Disorders: Yes ([place]) Father Race: Family Member Ethnicity: Non- Living Status: Age at : 51 Cause of : [place] Hx Family Cardiac Disorders: Yes ([place]) Medications and Allergies Aspirin 81 mg PO DAILY 07/20/16 [History] Clopidogrel [Plavix] 75 mg PO DAILY 07/20/16 [History] Losartan/Hydrochlorothiazide [Hyzaar 100-25 Tablet] 1 tab PO DAILY 07/20/16 [ History] Metoprolol XL (24 HR) Succ [Toprol Xl] 25 mg PO DAILY 07/20/16 [History] Tamsulosin [Flomax] 0.8 mg PO DAILY 07/20/16 [History] predniSONE [PredniSONE] 10 mg PO TAPER 02/10/17 [History] Allergies Penicillins Adverse Reaction (Verified 07/20/16 07:33) See Comments welts ramipril [From Altace] Adverse Reaction (Verified 07/20/16 07:33) Cough Xerwqbl-Fze-Gae Reductase Inhibitor [Statins] Adverse Reaction (Verified 07:33) Muscle Pain All systems: reviewed and no additional remarkable complaints except as stated ( SOB, urinary retention, sciatica pain to right leg, lower back pain, palpitations) - Cardiovascular Cardiovascular ROS: dyspnea on exertion, palpitations, rapid heart rate - Respiratory Respiratory: dyspnea on exertion - Gastrointestinal Gastrointestinal: constipation - Genitourinary Genitourinary ROS male: difficulty urinating - Musculoskeletal Musculoskeletal ROS IM: back pain, muscle weakness - Neurological Neurological ROS: weakness Palliative Care-Exam - Constitutional Vitals: Temp Pulse Resp BP Pulse Ox 97.6 F 102 18 148/85 96 02/13/17 07:44 02/13/17 07:44 02/13/17 07:44 02/13/17 07:44 02/13/17 07:44 General appearance: Present: cooperative, no acute distress - Head Head Exam: Present: atraumatic, normal inspection, normocephalic - Eye Eye exam: Present: EOMI, PERRL Pupils: Present: PERRL - ENT ENT exam: Present: mucous membranes moist - Expanded ENT Exam Mouth Exam: Present: moist - Neck Neck exam: Present: full ROM - Respiratory Respiratory exam: Present: decreased breath sounds - Expanded Respiratory Exam Location: decreased breath sounds: Left, Right, Lower - Cardiovascular Cardiovascular exam: Present: irregular rhythm, +S1, +S2 - Expanded Cardiovascular Exam Peripheral pulses: 1+: Femoral (L) PM, Femoral (R) PM, Posterior Tibialis (L), Posterior Tibialis (R), 2+: Carotid (L) PM, Carotid (R) PM, Radial (L), Radial ( R), Dorsalis Pedis (L) PM, Dorsalis Pedis (R) PM - GI/Abdominal Exam GI/Abdominal exam: Present: normal bowel sounds, soft - Rectal Rectal Exam: Present: deferred - Catheter Type: Urethral (Jensen) (darl yellow urine) - Expanded Upper Extremities Exam Shoulder exam: Present: full ROM Upper Arm exam: Present: full ROM Elbow exam: Present: full ROM Hand wrist exam: Present: full ROM - Expanded Lower Extremities Exam Hip exam: Present: full ROM Upper Leg exam: Present: full ROM Knee exam: Present: full ROM Lower Leg exam: Present: full ROM - Back Exam Back exam: Present: tenderness, vertebral tenderness - Neurological Exam Neurological exam: Present: alert, CN II-XII intact, oriented X3 - Psychiatric Psychiatric exam: Present: normal affect - Skin Skin exam: Present: pallor, warm Internal Medicine - CN: Reslt - Labs CBC & Chem 7: 02/13/17 05:12 02/13/17 05:12 Labs: Short CBC 02/12/17 02/13/17 Range/Units 12:40 05:12 WBC 14.0 H 14.7 H (4.3-11.1) K/mcL Hgb 15.3 15.4 (12.9-16.9) g/dL Hct 48.3 47.6 (37.5-50.1) % Plt Count 127 L 104 L (140-400) K/mcL Neutrophils # 13.0 H (1.6-8.9) K/mcL BMP 02/13/17 05:12 Sodium 137 Potassium 4.2 Chloride 105 Carbon Dioxide 18 L BUN 68 H Creatinine 1.98 H Glucose 180 H Calcium 8.2 L - ABG Interpretation ABG results: PT/INR, D-dimer PT 15.2 Seconds (9.4-12.1) H 02/12/17 12:40 - Impressions Impressions Chest X-Ray 02/13/17 07:35 IMPRESSION: 1. Decreased left pleural effusion and underlying left basilar atelectasis and/or pneumonia. 2. Pulmonary vascular congestion and mild cardiomegaly. D/ / Mandeep Vazquez MD / Mandeep Vazquez MD Interpreting Provider: Mandeep Vazquez MD Consult Discharge Plan - Plan Referrals: Chad Srivastava MD [Primary Care Provider] - (Web Requested 02-11-17) Palliative Quality Palliative Quality: Screen for Code Status: No, Screen for Goals of Care: Yes, Screen for Pain: Yes, Screen for Nausea/Vomitting: Yes
--- NOTE | 2017-02-13 10:56 | Internal Med Progress Note ---
Date of Encounter: 02/13/17 Time of Encounter: 10:53 - Assessment and plan (1) Atrial fibrillation with RVR Current Visit: Yes Status: Acute Assessment and plan: Off cardizem gtt will resume Low dose BB today anticoagulation with heparin gtt cardiology consultation appreciated likely C in am pending renal clearance continue tele monitoring will closely monitor (2) Yeqna-kn-qxqkink kidney injury Current Visit: Yes Status: Acute Assessment and plan: Renal function improving nephrology on board awaiting renal US holding nephrotoxic agents closely monitoring BP (3) Pleural effusion Current Visit: Yes Status: Acute Assessment and plan: Patient is on ceftriaxone empirically for questionable infiltrates in left base , will continue at this time repeat CXR improved continue abx for a total of 7 days leukocytosis secondary to steroid therapy(hydrocortisone) added for spinal stenosis (4) DVT prophylaxis Current Visit: Yes Status: Acute Assessment and plan: anticoagulated with heparin gtt (5) Sciatica Current Visit: Yes Status: Acute Assessment and plan: MRI of the lumbar spine will be performed. Consultation for spine surgery-Dr. Mcmillan to see the patient Patient mentioned episodes of urine retention in the past 2 months. Still able to raise both lower extremities against gravity. Reports of having history of epidural injection in L spine for chronic pain s/p laminectomy continue steroid support until further evaluation by Dr. Mcmillan Qualifiers: Qualified Code(s): M54.30 - Sciatica, unspecified side (6) Cardiomyopathy Current Visit: Yes Status: Chronic Qualifiers: Cardiomyopathy type: unspecified Qualified Code(s): I42.9 - Cardiomyopathy , unspecified - Subjective Interval history: Pt seen and examined at bedside. Resting in bed and reports of feeling better. Denies any lower back pain at this time. Reports of straining with bowel movements and requests addition of Miralax. No overnight issues were reported. - Constitutional Vitals: Temp Pulse Resp BP Pulse Ox 97.6 F 102 18 148/85 96 02/13/17 07:44 02/13/17 07:44 02/13/17 07:44 02/13/17 07:44 02/13/17 07:44 General appearance: Present: cooperative, A&O X 3, pleasant, no acute distress, obese, answers questions appropriately - Head Head exam: Present: atraumatic, normocephalic - Eye Eye exam: Present: normal appearance, conjuntiva pink, sclera anicteric - Respiratory Respiratory exam: Present: CTAB. Absent: accessory muscle use, rales, rhonchi, wheezes - Cardiovascular Cardiovascular exam: Present: RRR, +S1, +S2 - GI/Abdominal GI/Abdominal exam: Present: normal bowel sounds, soft, no peritoneal signs. Absent: distended, tenderness - Extremities Exam Extremities exam: Present: warm, radial pulses palpable and symetrical. Absent : calf tenderness, cyanotic, pedal edema - Neurological Exam Neurological exam: Present: alert, oriented X3 - Psychiatric Psychiatric exam: Present: normal affect, normal mood Internal Medicine: Result - Labs CBC & Chem 7: 02/13/17 05:12 02/13/17 05:12 Labs: Short CBC 02/12/17 02/13/17 Range/Units 12:40 05:12 WBC 14.0 H 14.7 H (4.3-11.1) K/mcL Hgb 15.3 15.4 (12.9-16.9) g/dL Hct 48.3 47.6 (37.5-50.1) % Plt Count 127 L 104 L (140-400) K/mcL Neutrophils # 13.0 H (1.6-8.9) K/mcL BMP 02/13/17 05:12 Sodium 137 Potassium 4.2 Chloride 105 Carbon Dioxide 18 L BUN 68 H Creatinine 1.98 H Glucose 180 H Calcium 8.2 L - ABG Interpretation ABG results: PT/INR, D-dimer PT 15.2 Seconds (9.4-12.1) H 02/12/17 12:40 - Impressions Impressions Chest X-Ray 02/13/17 07:35 IMPRESSION: 1. Decreased left pleural effusion and underlying left basilar atelectasis and/or pneumonia. 2. Pulmonary vascular congestion and mild cardiomegaly. D/ / Mandeep Vazquez MD / Mandeep Vazquez MD Interpreting Provider: Mandeep Vazquez MD - VTE Documentation of Mechanical Device: Graduated compression elastic hosiery Consult Discharge Plan - Plan Referrals: Chad Srivastava MD [Primary Care Provider] - (Web Requested 02-11-17)
--- NOTE | 2017-02-13 16:28 | Nephrology Progress Note ---
Date of Encounter: 02/13/17 - Assessment and Plan (1) SONNY (acute kidney injury) Current Visit: Yes Status: Acute (2) Atrial fibrillation with RVR Current Visit: Yes Status: Acute (3) Urinary retention Current Visit: Yes Status: Acute Subjective Principal diagnosis: Afib RVR Objective - Vital Signs Vital signs: Vital Signs Temp Pulse Resp BP Pulse Ox 02/13/17 15:25 97.5 F L 105 18 131/85 95 02/13/17 11:31 97.3 F L 100 20 137/85 94 02/13/17 07:44 97.6 F 102 18 148/85 96 02/13/17 03:24 97.5 F L 74 16 130/96 91 02/13/17 00:27 97.4 F L 71 16 123/79 96 02/12/17 21:02 97.4 F L 02/12/17 20:38 97.3 F L 99 17 118/61 96 Intake and Output 02/13/17 02/13/17 02/13/17 07:59 15:59 23:59 Intake Total 120 / 120 240 / 240 Output Total 400 / 400 350 / 350 Balance -280 / -280 -110 / -110 Intake: IV Fluids 120 / 120 0 / 0 Heparin 25,000 UNIT/500 120 / 120 0 / 0 ML D5W 25,000 unit In 500 ml @ 14 UNIT/KG/HR 26. 849 mls/hr IVC .[id number] [facility] Rx#:[id number] Oral 240 / 240 Output: Urine 0 / 0 Catheter 400 / 400 350 / 350 Other: Meal Lunch Percent of Meal Consumed 85% Stool Size Small Small Stool Consistency soft loose soft Stool Color Black Brown Bright Red Blood Black Blood Tinged # Bowel Movements 1 1 Weight 96.2 kg Patient Weight 02/13/17 23:59 Weight 96.2 kg - Lab 02/13/17 05:12 02/13/17 05:12 Most recent lab results Calcium 8.2 mg/dL (8.6-10.8) L 02/13/17 05:12 Phosphorus 4.3 mg/dL (2.3-4.7) 02/13/17 05:12 Magnesium 1.9 mg/dL (1.6-2.6) 02/13/17 05:12 Urine Creatinine 184 mg/dL 02/11/17 22:46 Urine Sodium < 20.0 mEq/L 02/11/17 22:46 - VTE Documentation of Mechanical Device: Graduated compression elastic hosiery Consult Discharge Plan - Plan Referrals: Chad Srivastava MD [Primary Care Provider] - (Web Requested 02-11-17)
[2017-02-13] MEDS: Heparin 25,000 UNIT/500 ML D5W 25,000 UNIT/500 ML MLS IVC SCH (17:30)
[2017-02-14] MEDS ORDERED: *HR* Metoprolol 5 MG/5 ML VIAL IVP ONE ×3 (02:57→23:59)
[2017-02-14 05:16] LABS: Basophils % 0.1 %; Hematocrit 47.2 % (37.5-50.1); Hemoglobin 15.2 g/dL (12.9-16.9); Immature Granulocytes % 0.6 % (0-4); Lymphocytes # 0.5 K/mcL (0.6-4.6); Lymphocytes % 3.4 %; Mean Corpuscular HGB Conc 32.2 g/dL (31.6-35.5); Mean Corpuscular Volume 96.1 fL (83.0-100.0); Mean Platelet Volume 12.9 fL (9.4-12.4); Monocytes % 6.5 %; Nucleated Red Blood Cells 1.6 /100 WBC (0); Platelet Count 119 K/mcL (140-400); Red Blood Count 4.91 M/mcL (4.19-5.50); Red Cell Distribution Width 15.9 % (11.5-14.5); Segmented Neutrophils % 89.4 %
[2017-02-14 05:33] LABS: BUN/Creatinine Ratio 42 (6-26); Blood Urea Nitrogen 54 mg/dL (8-26); Calcium 8.6 mg/dL (8.6-10.8); Carbon Dioxide 24 mEq/L (19-29); Chloride 106 mEq/L (98-109); Glucose 154 mg/dL (70-99); Magnesium 1.9 mg/dL (1.6-2.6); Osmolality,Calculated 308 (280-300); Phosphorous 3.3 mg/dL (2.3-4.7); Potassium 4.1 mEq/L (3.5-4.5); Sodium 140 mEq/L (136-145); eGFR For African Americans > 60 (> 60); eGFR For Non-African Americans 54 (> 60)
[2017-02-14] MEDS: Hydrocortisone Sodium Succ 100 MG/2 ML VIAL IVP SCH ×2 (08:35→15:35)
[2017-02-14] MEDS: Aspirin 81 MG TAB.CHEW PO SCH (08:38)
[2017-02-14] MEDS: Metoprolol XL (24 HR) Succ 25 MG TAB.ER.24H PO SCH (08:42)
--- NOTE | 2017-02-14 09:05 | Spinal Consult Note ---
Date of Encounter: 02/14/17 Time of Encounter: 09:02 Assessment and Plan (1) Lumbar foraminal stenosis Current Visit: Yes Status: Chronic On examination he is lying comfortably in bed in mild distress. He is afebrile , vital signs stable. He is able to fire all lower extremity motor groups with good strength. His hips move symmetrically. He has no clonus. He is neurovascularly intact with regard to his bilateral lower extremities. MRI examination of the lumbar spine reveals multilevel degenerative changes and some foraminal stenosis. There is no significant central stenosis seen. Impression: 1) lumbar stenosis 2) lumbar radiculopathy Plan: The patient has some improvement with his symptomatology. We are going to refer for interventional treatments in the form of lumbar epidural steroid injections. He will be seen in the spine Center in one week on an outpatient basis. Patient is amenable to this plan. (2) Lumbar radiculopathy Current Visit: Yes Status: Chronic History of Present Illness Chief complaint: Back pain and right lower extremity radicular pain HPI: Mr. Chavez is a 72 year old male Who complains of a two-month history of intermittent back and right lower extremity radicular symptoms. At times his pain is severe rated as 9 on a pain scale. Currently the pain is mostly related to the right lower extremity is approximately a 3 on a pain scale. He was treated as an outpatient by his family physician with a systemic steroid injection. This provided some relief several weeks ago but after some heavy work he had an exacerbation of symptoms. He has had no previous surgery or other interventional treatments. He denies any bowel bladder symptomatology, weakness in the lower extremities. The patient is admitted for cardiac issues including atrial fibrillation. Past Med Surg Social Fam HX - Past Medical History Medical history: atrial fibrillation, cancer (testicular), coronary artery disease, hypertension Psychiatric history: no psych history - Past Surgical History Surgical History: angioplasty/stent, cataract, coronary bypass (CABG), herniorrhaphy, LE stent(s), splenectomy, other (Removal of right testicle due to testicular cancer) - Social History Smoking Status: Former smoker Packs per day: 4 PPD Smokeless Tobacco Status: No Alcohol use: none Drug use: none - Family History Mother Race: Family Member Ethnicity: Non- Living Status: Age at : 79 Cause of : ID Hx Family Cardiac Disorders: Yes (ID) Father Race: Family Member Ethnicity: Non- Living Status: Age at : 51 Cause of : ID Hx Family Cardiac Disorders: Yes (ID) Medications and Allergies Aspirin 81 mg PO DAILY 07/20/16 [History] Clopidogrel [Plavix] 75 mg PO DAILY 07/20/16 [History] Losartan/Hydrochlorothiazide [Hyzaar 100-25 Tablet] 1 tab PO DAILY 07/20/16 [ History] Metoprolol XL (24 HR) Succ [Toprol Xl] 25 mg PO DAILY 07/20/16 [History] Tamsulosin [Flomax] 0.8 mg PO DAILY 07/20/16 [History] predniSONE [PredniSONE] 10 mg PO TAPER 02/10/17 [History] Allergies Penicillins Adverse Reaction (Verified 07/20/16 07:33) See Comments randa ramipril [From Altace] Adverse Reaction (Verified 07/20/16 07:33) Cough Mmzbiki-Fhu-Doq Reductase Inhibitor [Statins] Adverse Reaction (Verified 07:33) Muscle Pain Results - Labs Result Diagrams: 02/14/17 04:52 02/14/17 04:52 Labs: Abnormal lab results WBC 14.6 K/mcL (4.3-11.1) H 02/14/17 04:52 RDW 15.9 % (11.5-14.5) H 02/14/17 04:52 Plt Count 119 K/mcL (140-400) L 02/14/17 04:52 MPV 12.9 fL (9.4-12.4) H 02/14/17 04:52 Neutrophils # 13.0 K/mcL (1.6-8.9) H 02/14/17 04:52 Lymphocytes # 0.5 K/mcL (0.6-4.6) L 02/14/17 04:52 Nucleated RBCs/100 WBC 1.6 /100 WBC (0) H 02/14/17 04:52 Immature Plt Fraction 18.8 % (1.1-6.1) H 02/13/17 05:12 PT 15.2 Seconds (9.4-12.1) H 02/12/17 12:40 APTT 59.1 Seconds (26.0-36.0) H 02/13/17 18:22 Heparin Anti-Xa, Unfract 0.80 IU/mL (0.30-0.70) H 02/13/17 05:12 BUN 54 mg/dL (8-26) H 02/14/17 04:52 Creatinine 1.30 mg/dL (0.72-1.25) H 02/14/17 04:52 Est GFR (Non-Af Amer) 54 (> 60) L 02/14/17 04:52 BUN/Creatinine Ratio 42 (6-26) H 02/14/17 04:52 Glucose 154 mg/dL (70-99) H 02/14/17 04:52 Calculated Osmolality 308 (280-300) H 02/14/17 04:52 Lactic Acid 2.3 mmol/L (0.5-2.2) H 02/11/17 20:36 Uric Acid 11.0 mg/dL (3.5-7.2) H 02/11/17 19:40 AST 36 Units/L (5-34) H 02/11/17 00:56 Troponin I 0.08 ng/mL (0-0.03) H* 02/10/17 19:25 B-Natriuretic Peptide 374 pg/mL (0-100) H 02/10/17 11:04 Albumin 2.9 g/dL (3.5-5.0) L 02/11/17 00:56 Albumin/Globulin Ratio 0.9 (1.1-2.2) L 02/11/17 00:56 Cholesterol 206 mg/dL (< 200) H 02/10/17 12:31 LDL Cholesterol, Calc 139 mg/dL (0-99) H 02/10/17 12:31 H & H 02/14/17 Range/Units 04:52 Hgb 15.2 (12.9-16.9) g/dL Hct 47.2 (37.5-50.1) % All other labs normal. Consult Discharge Plan - Plan Referrals: Chad Srivastava MD [Primary Care Provider] - (Web Requested 02-11-17)
[2017-02-14] MEDS ORDERED: *HR* HYDROcodone/Acet 5/325 mg TABLET PO PRN (09:28)
--- NOTE | 2017-02-14 09:31 | Palliative Progress Note ---
Date of Encounter: 02/14/17 Time of Encounter: 09:30 - Assessment and plan (1) Constipation Current Visit: No Status: Acute Assessment and plan: Continue with scheduled Senokot and Miralax PRN. Good BM yesterday. Monitor Qualifiers: Constipation type: unspecified constipation type Qualified Code(s): K59.00 - Constipation, unspecified (2) Pain Current Visit: No Status: Acute Assessment and plan: Add Lyons 5/325 every 6 hours PRN pain and monitor. (3) Goals of care, counseling/discussion Current Visit: Yes Status: Acute Assessment and plan: For heart cath today. Will follow clinical course and assist as needed. - Time Spent With Patient Total time spent is greater than 50% in coordination of care (as documented) at patient's floor/unit and/or counseling patient: 25 - 35 minutes - Subjective Interval history: Patient awake and alert. States Orthopedic physician just in and plans outpt injections. Still c/o right leg pain and asking for something to assist with pain management. + BM yesterday. Renal function improved over last 24 hours. Cardiology in and pt for heart cath today. - Constitutional Vitals: Abnormal lab results WBC 14.6 K/mcL (4.3-11.1) H 02/14/17 04:52 RDW 15.9 % (11.5-14.5) H 02/14/17 04:52 Plt Count 119 K/mcL (140-400) L 02/14/17 04:52 MPV 12.9 fL (9.4-12.4) H 02/14/17 04:52 Neutrophils # 13.0 K/mcL (1.6-8.9) H 02/14/17 04:52 Lymphocytes # 0.5 K/mcL (0.6-4.6) L 02/14/17 04:52 Nucleated RBCs/100 WBC 1.6 /100 WBC (0) H 02/14/17 04:52 Immature Plt Fraction 18.8 % (1.1-6.1) H 02/13/17 05:12 PT 15.2 Seconds (9.4-12.1) H 02/12/17 12:40 APTT 59.1 Seconds (26.0-36.0) H 02/13/17 18:22 Heparin Anti-Xa, Unfract 0.80 IU/mL (0.30-0.70) H 02/13/17 05:12 BUN 54 mg/dL (8-26) H 02/14/17 04:52 Creatinine 1.30 mg/dL (0.72-1.25) H 02/14/17 04:52 Est GFR (Non-Af Amer) 54 (> 60) L 02/14/17 04:52 BUN/Creatinine Ratio 42 (6-26) H 02/14/17 04:52 Glucose 154 mg/dL (70-99) H 02/14/17 04:52 Calculated Osmolality 308 (280-300) H 02/14/17 04:52 Lactic Acid 2.3 mmol/L (0.5-2.2) H 02/11/17 20:36 Uric Acid 11.0 mg/dL (3.5-7.2) H 02/11/17 19:40 AST 36 Units/L (5-34) H 02/11/17 00:56 Troponin I 0.08 ng/mL (0-0.03) H* 02/10/17 19:25 B-Natriuretic Peptide 374 pg/mL (0-100) H 02/10/17 11:04 Albumin 2.9 g/dL (3.5-5.0) L 02/11/17 00:56 Albumin/Globulin Ratio 0.9 (1.1-2.2) L 02/11/17 00:56 Cholesterol 206 mg/dL (< 200) H 02/10/17 12:31 LDL Cholesterol, Calc 139 mg/dL (0-99) H 02/10/17 12:31 General appearance: Present: no acute distress - Respiratory Respiratory exam: Present: CTAB - Cardiovascular Cardiovascular exam: Present: irregular rhythm, tachycardia - GI/Abdominal GI/Abdominal exam: Present: normal bowel sounds, soft - Additional comments: Jensen with clear yellow urine - Extremities Exam Extremities exam: Present: normal capillary refill, normal inspection - Neurological Exam Neurological exam: Present: alert, oriented X3, strengths equal and symetr throughout - Skin Skin exam: Present: dry, warm Palliative Quality Palliative Quality: Screen for Code Status: No, Screen for Goals of Care: Yes, Screen for Pain: Yes, Screen for Nausea/Vomitting: Yes - Labs CBC & Chem 7: 02/14/17 04:52 02/14/17 04:52 Labs: Laboratory Results - last 24 hr 02/13/17 02/13/17 02/14/17 11:46 18:22 04:52 WBC 14.6 H RBC 4.91 Hgb 15.2 Hct 47.2 MCV 96.1 MCH 31.0 MCHC 32.2 RDW 15.9 H Plt Count 119 L MPV 12.9 H Immature Gran % 0.6 Seg Neutrophils % 89.4 Lymphocytes % 3.4 Monocytes % 6.5 Eosinophils % 0.0 Basophils % 0.1 Neutrophils # 13.0 H Lymphocytes # 0.5 L Monocytes # 1.0 Eosinophils # 0.0 Basophils # 0.0 Nucleated RBCs/100 WBC 1.6 H APTT 69.1 H 59.1 H Sodium Potassium Chloride Carbon Dioxide BUN Creatinine Est GFR ( Amer) Est GFR (Non-Af Amer) BUN/Creatinine Ratio Glucose Calculated Osmolality Calcium Phosphorus Magnesium 02/14/17 04:52 WBC RBC Hgb Hct MCV MCH MCHC RDW Plt Count MPV Immature Gran % Seg Neutrophils % Lymphocytes % Monocytes % Eosinophils % Basophils % Neutrophils # Lymphocytes # Monocytes # Eosinophils # Basophils # Nucleated RBCs/100 WBC APTT Sodium 140 Potassium 4.1 Chloride 106 Carbon Dioxide 24 BUN 54 H Creatinine 1.30 H Est GFR ( Amer) > 60 Est GFR (Non-Af Amer) 54 L BUN/Creatinine Ratio 42 H Glucose 154 H Calculated Osmolality 308 H Calcium 8.6 Phosphorus 3.3 Magnesium 1.9 - ABG Interpretation ABG results: PT/INR, D-dimer PT 15.2 Seconds (9.4-12.1) H 02/12/17 12:40 Consult Discharge Plan - Plan Referrals: Chad Srivastava MD [Primary Care Provider] - (Web Requested 02-11-17)
[2017-02-14] MEDS ORDERED: Metoprolol XL (24 HR) Succ 25 MG TAB.ER.24H PO ONE ×2 (11:01→15:30)
--- NOTE | 2017-02-14 11:25 | Cardiology Progress Note ---
Date of Encounter: 02/14/17 Time of Encounter: 11:20 Assessment and Plan (1) Atrial fibrillation with RVR Current Visit: Yes Status: Acute AF, better rate controlled, but a little tachycadic at bedside this AM. Titrate BB therapy. Currently on IV heparin. Awaiting C for CMP. Plan on oral AC after procedure. Consider SHIVAM guided cardioversion pending results of LHC and patient's progress. He has maintained sinus rhythm since AF ablation in 2012 (Ronald). Further recommendations to come. (2) Cardiomyopathy Current Visit: Yes Status: Chronic New severe cardiomyopathy. Known CAD, prior CABG. Known 2/3 patient grafts. ? tachycardia induced. Patient describes progressive dyspnea since September 2016 - ? progression of cardiomyopathy since that time. He appeard euvolemic on examination today. Recommend [facility] to re-evaluate coronary arteries. R/B/A discussed. He is agreeable. If no change, seems CMP tachycardia induced. Agree with aspirin/BB therapy. Consider low dose PO diuretic upon discharge. Consider ACEi if/when Cr remains stable. Reports statin intolerance. Qualifiers: Cardiomyopathy type: unspecified Qualified Code(s): I42.9 - Cardiomyopathy , unspecified Discussion w patient/family: The assessment and plan as outlined above was discussed with the patient and/or family members who expressed understanding and agreement. All questions were answered. Thank you for involving us in the care of your patient. Please call with any questions. Subjective Principal diagnosis: Afib RVR Interval history: Events of hospital stay reviewed. AF with RVR remains, but a little better controlled. Hematuria improved/resolved and liu remain. Cr has improved significantly. Results of echocardiogram discussed. Patient denies active chest pain or discomfort. Objective Vital Signs, Last 4 Hours Temp Pulse Resp BP Pulse Ox 02/14/17 11:03 97.5 F L 90 16 133/87 94 02/14/17 07:42 97.4 F L 88 17 130/89 93 General: Conversant, No Apparent Distress HEENT: Atraumatic, Normocephaly, Mucus Membranes Moist Neck: No JVD Cardiac: Other (Irregular rate and rhythm. ) Lungs: Normal Breath Sounds, No Wheeze, Rales, Rhonchi Neuro: Alert and responsive, No focal deficits noted Abdomen: Soft, Non-Tender Skin: No rashes noted on visualized skin Musculoskeletal: No Chest Wall Tenderness Extremities: No Clubbing, No Cyanosis, No Edema Results 02/14/17 04:52 02/14/17 04:52 Lab Results 02/13/17 02/13/17 02/14/17 11:46 18:22 04:52 WBC 14.6 H Hgb 15.2 Hct 47.2 Plt Count 119 L APTT 69.1 H 59.1 H Sodium Potassium Chloride Carbon Dioxide BUN Creatinine Glucose Calcium Magnesium 02/14/17 04:52 WBC Hgb Hct Plt Count APTT Sodium 140 Potassium 4.1 Chloride 106 Carbon Dioxide 24 BUN 54 H Creatinine 1.30 H Glucose 154 H Calcium 8.6 Magnesium 1.9 - Imaging and Cardiology Echo: report reviewed - EKG Interpretation EKG results cardiology: personally reviewed - VTE Documentation of Mechanical Device: Graduated compression elastic hosiery Consult Discharge Plan - Plan Referrals: Chad Srivastava MD [Primary Care Provider] - 02/20/17 1:15 pm (Office will call you if an appointment becomes open at a earlier date)
[2017-02-14] MEDS ORDERED: 0.9 % Sodium Chloride 1,000 ML ONE (13:06)
[2017-02-14] MEDS ORDERED: *HR* Heparin 10,000 UNIT/10 ML VIAL ONE (13:07)
[2017-02-14] MEDS ORDERED: Heparin 1,000 UNITS/500 mL NS 500 ML ONE (13:07)
[2017-02-14] MEDS ORDERED: Nitroglycerin 1,000 MCG/10 ML VIAL IV ONE (13:07)
--- NOTE | 2017-02-14 13:09 | Nephrology Progress Note ---
Date of Encounter: 02/14/17 Time of Encounter: 11:00 - Assessment and Plan (1) SONNY (acute kidney injury) Current Visit: Yes Status: Acute SCr improving at 1.3, GFR 54 which is great UOP improving Continue to avoid nephrotoxins if possible limit contrast amount and flush iwona-LHC with saline if possible (2) Atrial fibrillation with RVR Current Visit: Yes Status: Acute Per cardiology (3) Urinary retention Current Visit: Yes Status: Acute UOp improved Urology to see outpatient for further workup Subjective Principal diagnosis: Afib RVR Interval history: Pt seen and examined with no new complaints. LHC palnned today. feels pretty good. Objective - Vital Signs Vital signs: Vital Signs Temp Pulse Resp BP Pulse Ox 02/14/17 11:03 97.5 F L 90 16 133/87 94 02/14/17 07:42 97.4 F L 88 17 130/89 93 02/14/17 04:42 97.6 F 94 16 126/90 92 02/13/17 23:02 98.1 F 109 16 133/80 93 02/13/17 21:49 97.7 F 70 20 136/85 95 02/13/17 20:24 95 02/13/17 20:16 110 17 148/105 95 02/13/17 15:25 97.5 F L 105 18 131/85 95 Intake and Output 02/13/17 02/14/17 02/14/17 23:59 07:59 15:59 Intake Total 613 / 613 140 / 140 Output Total 150 / 150 1000 / 1000 0 / 0 Balance 463 / 463 -1000 / -1000 140 / 140 Intake: IV Fluids 253 / 253 100 / 100 Heparin 25,000 UNIT/500 153 / 153 ML D5W 25,000 unit In 500 ml @ 14 UNIT/KG/HR 26. 849 mls/hr IVC .[id number] JANE Rx#:[id number] Rocephin 1,000 MG In 100 / 100 100 / 100 Dextrose 5% (Minibag+) 100 ML 100 ML @ 200 mls/ hr IVPB DAILY JANE Rx#: [id number] Oral 360 / 360 40 / 40 Output: Catheter 150 / 150 1000 / 1000 0 / 0 Other: Meal Dinner NPO Percent of Meal Consumed 100% 0% Stool Size Moderate Moderate Stool Consistency soft formed formed Stool Characteristics Normal for Patient Normal for Patient Stool Color Brown Brown # Bowel Movements 2 1 Weight 96.5 kg Patient Weight 02/14/17 23:59 Weight 96.5 kg - General Appearance General appearance: Present: well-developed, well-nourished EENT: Present: ATNC Neck: Present: no JVD, supple Respiratory: Present: clear Cardiology: Present: no edema, irregular rhythm, normal S1, normal S2 Gastrointestinal: Present: no tenderness, no guarding Integumentary: Present: warm and dry Neurologic: Present: no focal deficit Musculoskeletal: Present: no deformities Psychiatric: Present: mood/affect appropriate - Lab 02/15/17 04:23 02/15/17 04:23 Most recent lab results Calcium 8.6 mg/dL (8.6-10.8) 02/14/17 04:52 Phosphorus 3.3 mg/dL (2.3-4.7) 02/14/17 04:52 Magnesium 1.9 mg/dL (1.6-2.6) 02/14/17 04:52 Urine Creatinine 184 mg/dL 02/11/17 22:46 Urine Sodium < 20.0 mEq/L 02/11/17 22:46 - VTE Documentation of Mechanical Device: Graduated compression elastic hosiery Consult Discharge Plan - Plan Referrals: Chad Srivastava MD [Primary Care Provider] - 02/20/17 1:15 pm (Office will call you if an appointment becomes open at a earlier date)
[2017-02-14] MEDS ORDERED: *HR* Midazolam HCl 2 MG/2 ML VIAL ONE (13:23)
[2017-02-14] MEDS ORDERED: *HR* FentaNYL (PF) 100 MCG/2 ML VIAL ONE (13:23)
--- NOTE | 2017-02-14 13:24 | Pre-Sedation Evaluation ---
Pre-sedation evaluation - Pre-sedation checklist Procedure: [facility] Recent Vitals: Last Vital Signs Temp 97.5 F L 02/14/17 11:03 Pulse 90 02/14/17 11:03 Resp 16 02/14/17 11:03 BP 133/87 02/14/17 11:03 Pulse Ox 94 02/14/17 11:03 H&P (including ROS) documented in medical record: Yes Previous reaction to sedatives/anesthetics: No Dietary Status: NPO after Midnight Airway Assessment: Patient can open mouth completely, TMJ function normal, Micrognathia (under-bite, receding chin) absent, Neck with adequate range of motion Dentition: full dentition Possible difficult airway: No ASA Classification *see protocol: CLASS II-Mild systemic disease Plan of Care: Pt appropriate candidate for procedure/moderate/conscious sedation , Risks/benefits of procedure/sedation discussed w/ patient/family
--- NOTE | 2017-02-14 13:53 | Internal Med Progress Note ---
Date of Encounter: 02/14/17 Time of Encounter: 13:51 - Assessment and plan (1) Atrial fibrillation with RVR Current Visit: Yes Status: Acute Assessment and plan: Rate controlled tolerating Low dose BB anticoagulation with heparin gtt cardiology consultation appreciated [facility] today (02/14/17) continue tele monitoring will closely monitor (2) Hvsav-cf-jmkiyja kidney injury Current Visit: Yes Status: Acute Assessment and plan: Renal function improving nephrology on board awaiting renal US holding nephrotoxic agents closely monitoring BP (3) Pleural effusion Current Visit: Yes Status: Acute Assessment and plan: Patient is on ceftriaxone empirically for questionable infiltrates in left base , will continue at this time repeat CXR improved continue abx for a total of 7 days leukocytosis secondary to steroid therapy(hydrocortisone) added for spinal stenosis (4) DVT prophylaxis Current Visit: Yes Status: Acute Assessment and plan: anticoagulated with heparin gtt (5) Sciatica Current Visit: Yes Status: Acute Assessment and plan: MRI of the lumbar spine will be performed. Dr. Mcmillan consultation appreciated no acute intervention at this time will initiate steroid taper PT eval Qualifiers: Qualified Code(s): M54.30 - Sciatica, unspecified side (6) Cardiomyopathy Current Visit: Yes Status: Chronic Qualifiers: Cardiomyopathy type: unspecified Qualified Code(s): I42.9 - Cardiomyopathy , unspecified - Subjective Interval history: Pt seen and examined at bedside. Resting in bed and reports of feeling better. Denies any lower back pain at this time. No overnight issues reported Scheduled for [facility] later today - Constitutional Vitals: Temp Pulse Resp BP Pulse Ox 97.5 F L 90 16 133/87 94 02/14/17 11:03 02/14/17 11:03 02/14/17 11:03 02/14/17 11:03 02/14/17 11:03 General appearance: Present: cooperative, A&O X 3, pleasant, no acute distress, obese, answers questions appropriately - Head Head exam: Present: atraumatic, normocephalic - Eye Eye exam: Present: normal appearance, conjuntiva pink, sclera anicteric - Respiratory Respiratory exam: Present: CTAB. Absent: accessory muscle use, rales, rhonchi, wheezes - Cardiovascular Cardiovascular exam: Present: RRR, +S1, +S2. Absent: diastolic murmur, gallop, rubs, systolic murmur - GI/Abdominal GI/Abdominal exam: Present: normal bowel sounds, soft, no peritoneal signs. Absent: distended, tenderness - Extremities Exam Extremities exam: Present: warm, radial pulses palpable and symetrical. Absent : calf tenderness - Neurological Exam Neurological exam: Present: alert, oriented X3 - Psychiatric Psychiatric exam: Present: normal affect, normal mood Internal Medicine: Result - Labs CBC & Chem 7: 02/14/17 04:52 02/14/17 04:52 Labs: Short CBC 02/14/17 Range/Units 04:52 WBC 14.6 H (4.3-11.1) K/mcL Hgb 15.2 (12.9-16.9) g/dL Hct 47.2 (37.5-50.1) % Plt Count 119 L (140-400) K/mcL Neutrophils # 13.0 H (1.6-8.9) K/mcL BMP 02/14/17 04:52 Sodium 140 Potassium 4.1 Chloride 106 Carbon Dioxide 24 BUN 54 H Creatinine 1.30 H Glucose 154 H Calcium 8.6 - ABG Interpretation ABG results: PT/INR, D-dimer PT 15.2 Seconds (9.4-12.1) H 02/12/17 12:40 - VTE Documentation of Mechanical Device: Graduated compression elastic hosiery Consult Discharge Plan - Plan Referrals: Chad Srivastava MD [Primary Care Provider] - 02/20/17 1:15 pm (Office will call you if an appointment becomes open at a earlier date)
--- NOTE | 2017-02-14 14:51 | Invasive Diagnostic Lab Proc ---
Name: Tee Chavez Date of Study: 02/14/2017 Date: 1945 Ht: 68.1in Medical Record#: [id number] Age: 72 Wt: 212.75lb Gender: Male BSA: 2.1 Order #: [id number] BMI: 32.24 Physicians Procedure Physician: Angela Mcqueen MD, [facility] Referring MD: Referring MD: Staff Name Position Time In Katie Lares RN Quill Cleaning Machine Operator 01:34 PM Trini Méndez RN Monitor 01:34 PM Caity, Nicki RT (R) Scrub 01:34 PM Indications Indication Non-Stemi Cardiomyopathy Procedures Performed Procedure CORONARY ART/GRFT ANGIO S\\T\\I Pre-Procedure Checklist Informed consent is complete signed and on chart. H\\T\\P is on chart. ID band is on and ID verified with patient. Patient NPO for procedure The procedure was described for the patient and questions were answered. ECG is on chart. Rhythm: Atrial Fibrillation Plan of Care Patient will tolerate the procedure without complications. Adequate level of comfort will be maintained. Hemodynamics will remain stable Patient will recover from procedure without complications. Respiratory function will be maintained. Cardiac rhythm will remain stable. Patient temperature will be maintained. Patient and/or family have verbalized understanding of the procedure. Patient Education Intravenous Access Time IV Size Location DC'd Fluid/Drip Rate Units RN 01:00 PM 20g 1 /" Patent On Arrival Lt Arm 0.9NaCl 25 ml/hr Katie Lares RN Allergies Penicillins Hgeheqp-Isp-Gdb Reductase Inhibitor altace crestor lipitor pcn Vital Signs Time BP (mmHg) HR (bpm) O2 Sat. RR (bpm) LOC 01:59 PM / % 5 = Fully awake and oriented or at pre-proc level 01:59 PM / % 5 = Fully awake and oriented or at pre-proc level 02:10 PM / % 5 = Fully awake and oriented or at pre-proc level 02:14 PM / % 5 = Fully awake and oriented or at pre-proc level 01:44 PM 128 / 99 108 96 % 9 01:49 PM 139 / 103 133 95 % 01:55 PM 161 / 100 105 95 % 27 01:59 PM 137 / 102 89 94 % 18 02:05 PM 135 / 99 95 95 % 18 02:09 PM 144 / 100 122 95 % 13 02:14 PM 130 / 94 127 94 % 14 02:19 PM 131 / 94 91 94 % 18 Procedural Medications Time Medication Dose Units Method Given By 02:01 PM Lidocaine 2% 17 ml Subcutaneous Angela Mcqueen MD, [facility] 01:34 PM Oxygen 2 L/min nasal cannula Lynne Score Preprocedure Postprocedure Activity 2- Moves 4 extremities sustained head lift Activity 2- Moves 4 extremities sustained head lift Circulation 2- SBP +/= 20 points of pre-anesthetic level Circulation 2- SBP +/= 20 points of pre-anesthetic level Consciousness 2- Awake and alert oriented x 3 Consciousness 2- Awake and alert oriented x 3 O2 Saturation 2- Able to maintain O2 satruation of 92% on room air O2 Saturation 2- Able to maintain O2 satruation of 92% on room air Respiratory 2- Able to deep breathe and cough well Respiratory 2- Able to deep breathe and cough well Total Score 10 Total Score 10 Contrast Agent: Isovue Diagnostic Contrast: 53 ml Total Contrast: 53 ml Fluoro Dose: 512 mGy Procedure Log Time Note Enter By 01:11 PM CathStat 01:34 PM Pt arrived to lab courier 2 at 13:34 scoates 01:34 PM Physician arrived 13:34 scoates 01:34 PM Meet and greet completed scoates 01:34 PM Sign in performed according to hospital policy. scoates 01:34 PM Procedure start 13:34 scoates :34 PM Katie Lares RN Position: Quill Cleaning Machine Operator Time in: 13:34 scoates :34 PM Trini Méndez RN Position: Monitor Time in: 13:34 scoates :34 PM Nicki Carolina RT (R) Position: Scrub Time in: 13:34 scoates :34 PM Patient charges- Angio tray pack, Navilyst 3mm J, Pulse Oximetry and ACIST tubing and transducer scoates 01:34 PM Case Delayed No scoates 01:34 PM Time: 13:34 Oxygen on at 2 L/min per nasal cannula by carol 01:41 PM Vitals capture started with the following parameters, Patient=Adult, Interval=5 min, Initial Ytwrfdgc=401 mmHg, Deflation Rate=5 mmHg, Cuff placed on Right Arm 01:44 PM Vitals capture started with the following parameters, Patient=Adult, Interval=5 min, Initial Woapihqn=348 mmHg, Deflation Rate=5 mmHg, Cuff placed on Right Arm 01:44 PM XH=141 bpm, RZOL=071/99 mmhg, SpO2=96 %, Resp=9 B/min 01:49 PM JY=546 bpm, FKCE=299/103 mmhg, SpO2=95 % 01:55 PM MY=219 bpm, FFFW=337/100 mmhg, SpO2=95 %, Resp=27 B/min 01:56 PM Recorded ECG: FP=640 Condition=Condition 1 01:58 PM Time out performed according to hospital policy ejohnson :58 PM Pressure channel 1 zeroed. 01:59 PM Time: 13:59 Patient comfortable and pain free: Yes ejohnson :59 PM Time: 13:59LOC: 5 = Fully awake and oriented or at pre-proc level ejohnson 01:59 PM HR=89 bpm, XFQG=950/102 mmhg, SpO2=94.0 %, Resp=18 B/min, Comment=Afib 02:01 PM Time: 14:01 17 ml Lidocaine 2% to left groin Subcutaneous Given by Angela Mcqueen MD, [facility] ejohnson 02:02 PM Access obtained by percutaneous puncture. 5Fr 10cm Terumo [place] sheath placed in left Femoral artery. [id number] ejohnson 02:03 PM 5Fr FL 4 catheter inserted over the wire DN ejohnson 02:04 PM Recorded Pressure: Ao, HR=98, Condition=Condition 1 (Aorta) Ao 122/99/110 02:04 PM LCA angiography performed in multiple views. ejohnson 02:04 PM Catheter removed ejohnson 02:04 PM 5Fr FR 4 catheter inserted over the wire DN ejohnson 02:05 PM HR=95 bpm, YZGH=534/99 mmhg, SpO2=95.0 %, Resp=18 B/min, Comment=Afib 02:06 PM Recorded Pressure: Ao, ND=814, Condition=Condition 1 (Aorta) Ao 119/96/106 02:06 PM RCA angiography performed in multiple views. ejohnson 02:08 PM Recorded Pressure: Ao, HR=84, Condition=Condition 1 (Aorta) Ao 114/92/102 02:08 PM SVG to the 1st OM angio performed in multiple views. ejohnson 02:09 PM Catheter removed ejohnson 02:09 PM 5Fr LCB catheter inserted over the wire [id number] ejohnson 02:09 PM DX=651 bpm, OYZZ=252/100 mmhg, SpO2=95.0 %, Resp=13 B/min, Comment=Afib 02:10 PM Time: 13:59 Patient comfortable and pain free: Yes ejohnson 02:10 PM Time: 13:59LOC: 5 = Fully awake and oriented or at pre-proc level ejohnson 02:11 PM Catheter removed ejohnson 02:11 PM 5Fr IM catheter inserted over the wire [id number] ejohnson 02:14 PM Recorded Pressure: Ao, HR=93, Condition=Condition 1 (Aorta) Ao 126/100/111 02:14 PM Left ANGEL to the LAD angio performed in multiple views. ejohnson 02:14 PM Time: 14:10 Patient comfortable and pain free: Yes ejohnson 02:14 PM Time: 14:10LOC: 5 = Fully awake and oriented or at pre-proc level ejohnson 02:14 PM WY=862 bpm, RCDG=057/94 mmhg, SpO2=94.0 %, Resp=14 B/min, Comment=Afib 02:14 PM Catheter removed ejohnson 02:15 PM Bolus angiogram of left Femoral complete: 2 ml/sec for a total of 4 mls ejohnson 02:15 PM Procedure completed at 14:15 ejohnson 02:17 PM Sign out completed: Radiation Dose 511.69 mGy Fluoro Time: 5.0 Isovue 370 - 200ml contrast 53 ml given by Angela Mcqueen MD, [facility]. Complications: NoneCardiac Rehab Consult needed: No Confirmed administered medications: Yes ejohnson 02:18 PM Arterial sheath pulled, Mynx closure device used and was Successful S/N. ejohnson 02:18 PM Post ECG NSR ejohnson 02:18 PM Post Blood Pressure 130/94 ejohnson 02:18 PM Information taught Cardiac Cath and Mynx ejohnson 02:19 PM Education needs Plan of Care, Disease Process, and Responsibilities of Patient in Care ejohnson 02:19 PM Time: 14:14 Patient comfortable and pain free: Yes ejohnson 02:19 PM Time: 14:14LOC: 5 = Fully awake and oriented or at pre-proc level ejohnson 02:19 PM Time: 14:19 Patient comfortable and pain free: Yes ejohnson 02:19 PM HR=91 bpm, LCME=906/94 mmhg, SpO2=94.0 %, Resp=18 B/min, Comment=Afib 02:22 PM Site status No bleeding/hematoma - Lt Groin as reported by Sites, Nicki RT (R) at 14:21 ejohnson 02:24 PM Opsite applied ejohnson 02:24 PM Plavix, Effient or Brilinta given No ejohnson 02:24 PM Family placed in consult room. ejohnson 02:24 PM Complications: None ejohnson 02:25 PM Coronary Dominance: right ejohnson 02:31 PM Report given to Octvaia ROBERTS Pt taken to 2A Room #33. 14:31 ejohnson 02:32 PM Lesion found in Proximal RCA. Pre Stenosis: 99 ejohnson 02:32 PM Lesion found in Mid RCA. Pre Stenosis: 99 ejohnson 02:33 PM Lesion found in Distal RCA. Pre Stenosis: 100 Pre CHRIS Flow: 0: No Flow/No perfusion ejohnson 02:33 PM Right Coronary, Right Posterior Descending Arteries with Right Posterolateral and Acute Marginal branches with 100 % stenosis. ejohnson 02:33 PM Lesion found in LMCA. Pre Stenosis: 50 Pre CHRIS Flow: 3: Complete and Brisk Flow/Perfusion ejohnson 02:33 PM Left Main Coronary Artery with 50% stenosis ejohnson 02:33 PM Lesion found in Proximal LAD. Pre Stenosis: 90 ejohnson 02:33 PM Proximal Left Anterior Descending Coronary Artery with 90% stenosis. ejohnson 02:34 PM Lesion found in Proximal Circumflex. Pre Stenosis: 100 Pre CHRIS Flow: 0: No Flow/No perfusion ejohnson 02:34 PM Circumflex, Obtuse Marginal, Left Posterior Descending, and Left Posterolateral Coronary Arteries with 100 % stenosis. ejohnson 02:42 PM Patient out of room: 14:33 ejohnson Complications Complication None Hemodynamics Pressures Site Systolic/A Wave Diastolic/V Wave Mean AO 122 99 110 AO 119 96 106 AO 114 92 102 AO 126 100 111 Post Procedure Information Blood Pressure: 130/94 mmHg Rhythm: NSR Post procedural instructions were given Closure Device Time Device Success/Fail 02/14/2017 2:18:00 PM Mechanical Compression Successful Site Checks Time Location Status Staff Sheath In? Note 02:21 PM Lt Groin No bleeding/hematoma Sites, Nicki RT (R) Pulses Time Site Pre-Procedure Post-Procedure Note 02/14/2017 2:42:00 PM Bilateral DP \\T\\ PT Doppler 02/14/2017 1:15:00 PM Bilateral DP \\T\\ PT Doppler Updated by Trini Méndez RN on 02/14/2017 2:43:57 PM Trini Méndez RN electronically signed on 02/14/2017 2:44:38 PM with status of Final
--- NOTE | 2017-02-14 15:03 | Event Note ---
Date of Encounter: 02/14/17 Time of Encounter: 15:00 - Cardiology Event Note Per discussion with Dr. Gladis Mcqueen, cath showed no significant changes and no lesions requiring intervention. Off Hep gtt and Eliquis started. Will continue to follow.
--- NOTE | 2017-02-14 15:11 | Invasive Diagnostic Lab ---
Name: Tee Chavez Date of Study: 02/14/2017 Date: 1945 Ht: 173.0 cm /68.1 in Medical Record#: [id number] Age: 72 Wt: 96.5 kg / 212.75 lb Account/Order#: [id number] Gender: Male BSA: 2.1 Order #: [id number] Fluoro Dose: 512 mGy BMI: 32.24 Procedure Physician: Angela Mcqueen MD, [facility] Referring MD: Referring MD: Procedures Performed: CORONARY ANGIOGRAPHY W/ GRAFTS Indications: Non-Stemi, Cardiomyopathy Impressions: There is severe three vessel coronary artery disease. S/P CABG 2 of 3 patent bypass grafts. No significant change when compared to cath Jul 2016 Recommendations: Optimal medical therapy of patient's disease. Aggressive risk factor modification. History/Risk Factors: CAD Cardiomyopathy BPH Hypertension Procedure Access obtained in the left Femoral artery by percutaneous puncture Complications: None Contrast: Isovue 53ml Hemodynamics: Pressures Site Systolic/ A Wave Diastolic/ V Wave End Diastolic/ Mean HR AO 122 99 110 98 AO 119 96 106 119 AO 114 92 102 84 AO 126 100 111 93 Coronary Dominance: right Lesion Findings/Interventions * Left Main Coronary Artery There is a 50% stenosis in the LMCA. The lesion has a CHRIS flow of 3. * Left Anterior Descending There is a 90% stenosis in the Proximal LAD. Mid and distal LAD fill from the craig and the patent LEON graft. * Circumflex There is a 100% stenosis in the Proximal Circumflex- HVAC REFRIGERATION TECHNICIAN. * Right Coronary Artery There is a 99% stenosis in the Proximal RCA. There is a 99% stenosis in the Mid RCA. There is a 100% stenosis in the Distal RCA- HVAC REFRIGERATION TECHNICIAN. R PDA fills faintly via L to R collaterals. Additional Findings: Grafts * The saphenous vein graft to the Right PDA is occluded. * The saphenous vein graft to the 1st Marginal is patent, 30% lesion in the mid body of the graft. CHRIS flow is 2. * The left internal mammary graft to the Mid LAD is patent. CHRIS flow is 3. Updated by Trini Méndez RN on 02/14/2017 2:41:18 PM Angela Mcqueen MD, [facility] electronically signed on 02/14/2017 3:06:06 PM with status of Final
[2017-02-14] MEDS: Lactulose Oral Soln 20 GM/30 ML UDC PO SCH ×2 (15:36→21:26)
[2017-02-14] MEDS: Sennosides/Docusate Sodium TABLET PO SCH ×2 (15:36→21:26)
[2017-02-14] MEDS ORDERED: Metoprolol XL (24 HR) Succ 25 MG TAB.ER.24H PO SCH (21:00)
[2017-02-14] MEDS ORDERED: Metoprolol XL (24 HR) Succ 50 MG TAB.ER.24H PO SCH (21:00)
[2017-02-14] MEDS: APIXABAN 5 MG TABLET PO SCH (21:26)
[2017-02-14] MEDS: Metoprolol XL (24 HR) Succ 50 MG TAB.ER.24H PO SCH (21:26)
[2017-02-15] MEDS: Ondansetron 4 MG/2 ML VIAL IVP PRN (00:08)
[2017-02-15] MEDS: Hydrocortisone Sodium Succ 100 MG/2 ML VIAL IVP SCH ×2 (00:08→08:26)
[2017-02-15 05:14] LABS: Basophils % 0.1 %; Hematocrit 49.9 % (37.5-50.1); Hemoglobin 15.9 g/dL (12.9-16.9); Immature Granulocytes % 0.7 % (0-4); Lymphocytes # 0.6 K/mcL (0.6-4.6); Lymphocytes % 4.4 %; Mean Corpuscular HGB Conc 31.9 g/dL (31.6-35.5); Mean Corpuscular Hemoglobin 30.6 pg (28.0-33.3); Mean Platelet Volume 12.4 fL (9.4-12.4); Monocytes # 1.2 K/mcL (0.0-1.3); Monocytes % 8.6 %; Neutrophils # 12.4 K/mcL (1.6-8.9); Nucleated Red Blood Cells 2.9 /100 WBC (0); Platelet Count 110 K/mcL (140-400); Red Cell Distribution Width 16.6 % (11.5-14.5); Segmented Neutrophils % 86.2 %
[2017-02-15 05:32] LABS: BUN/Creatinine Ratio 44 (6-26); Blood Urea Nitrogen 48 mg/dL (8-26); Calcium 8.5 mg/dL (8.6-10.8); Carbon Dioxide 23 mEq/L (19-29); Chloride 105 mEq/L (98-109); Glucose 148 mg/dL (70-99); Magnesium 1.8 mg/dL (1.6-2.6); Osmolality,Calculated 301 (280-300); Phosphorous 3.1 mg/dL (2.3-4.7); Potassium 4.5 mEq/L (3.5-4.5); Sodium 138 mEq/L (136-145); eGFR For African Americans > 60 (> 60); eGFR For Non-African Americans > 60 (> 60)
--- NOTE | 2017-02-15 08:24 | Cardiology Progress Note ---
Date of Encounter: 02/15/17 Time of Encounter: 08:30 Assessment and Plan (1) Atrial fibrillation with RVR Current Visit: Yes Status: Acute Per Cardiology: He had previously maintained sinus rhythm since AF ablation in 2012 ([place]). Continues to be in afib with avg HR past 12 hrs 113. Now back on IV Cardizem gtt 5mg/hr per primary service. Discussed with Dr. Tafoya, will stop IV Cardizem and initiate IV Amiodarone bolus and gtt-- transfer orders placed for 2N. Plan for SHIVAM/DCCV tomorrow if remains afib/flutter. Remains off ARB/HCTZ to allow for SBP room for med titration. Received IV Digoxin 0.25mg x 1 Monday. SBP now 110's-120's, on Toprol XL 25mg PO BID-- will increase to 37.5mg PO BID. Echo shows severe reduction on RV fxn and EF down to 15-20%. Regarding long-term anticoagulation, [id number] score 3, now on Eliquis 5mg PO BID-- no hematuria and CBC stable (Eliquis ortega check $48 per month). (2) Elevated troponin Current Visit: Yes Status: Acute Per Cardiology: Troponin downtrending 0.10, now 0.07, likely 2/2 demand ischemia from A fib with rvr and SONNY. Chest pain-free. Had recent heart catheterization for abnormal stress test July 2016 which showed patent 2 of 3 bypass grafts with patent LEON to mid LAD, patent SVG to OM1, occluded SVG to right PDA. Additionally, noted to have 90% stenosis in small diagonal that fills from Leon and supplies faint collaterals to a higher small diagonal/OM. S/p LHC with no significant changes per Dr. Gladis Mcqueen. CP free. On asa, BB, previously intolerant to statin therapy. (3) Acute renal failure Current Visit: Yes Status: Acute Per Cardiology: Has been experiencing urinary retention suspected obstructive. Off ELIJAH inhibitor /HCTZ. Creat peak 2.49, now normalized. Historically normal kidney function. Jensen draining yellow urine. Further management per primary service, nephrology , and urology. Renal US: IMPRESSION: Unremarkable appearance of the kidneys. Bladder is decompressed. Incidental note of ascites. Qualifiers: Acute renal failure type: unspecified Qualified Code(s): N17.9 - Acute kidney failure, unspecified (4) Cardiomyopathy Current Visit: Yes Status: Chronic Per Cardiology: Patient describes progressive dyspnea since September 2016. Last echo July 2014 showed EF preserved at 60%. Current echo shows EF 15-20%, RV size with severe reduction in global function, mild MR, wcze-tb-kiripmze TR, mild MT. New severe cardiomyopathy. Known CAD, prior CABG. Known 2/3 patient grafts-- cath yesterday showed no significant changes. Suspect tachycardia induced. BNP mildly elevated at 374 on arrival. Mild edema this am. Ascites noted on Renal U/ S. Discussed with Dr. Tafoya, will give IV Lasix 20mg x 1. Consider resuming ARB tomorrow if BP allows and if kidney fxn stable. Qualifiers: Cardiomyopathy type: unspecified Qualified Code(s): I42.9 - Cardiomyopathy , unspecified (5) Pleural effusion Current Visit: Yes Status: Acute Per Cardiology: Noted to have small to moderate left pleural effusion on chest x-ray. Current Xray shows: Left pleural effusion with left lower lobe atelectasis versus pneumonia. On antibiotics per primary service. Discussion w patient/family: The assessment and plan as outlined above was discussed with the patient who expressed understanding and agreement. All questions were answered. Thank you for involving us in the care of your patient. Please call with any questions. Patient is DNR/DNI/CCA. Palliative care following. Subjective Principal diagnosis: Afib RVR Interval history: Patient reports short of breath with palpitations yesterday evening which is now improved. He denies any chest pain. Denies any concerns from his left groin site. Denies any awareness to any bleeding or blood loss. Objective Vital Signs, Last 4 Hours Temp Pulse Resp BP Pulse Ox 02/15/17 08:09 98.2 F 95 18 115/90 94 02/15/17 04:59 80 16 124/79 94 General: Conversant, No Apparent Distress HEENT: Atraumatic, Normocephaly, Mucus Membranes Moist Neck: No JVD, Normal carotid pulses Cardiac: No Murmur, Other (Irregularly irregular) Lungs: Normal Breath Sounds, No Wheeze, Rales, Rhonchi Neuro: Alert and responsive, No focal deficits noted Skin: No rashes noted on visualized skin Musculoskeletal: No Chest Wall Tenderness Extremities: Normal Pulses, Other (+1 pitting edema bilateral LE) Results 02/15/17 04:23 02/15/17 04:23 Lab Results Laboratory Tests 02/14/17 02/15/17 02/15/17 04:52 04:23 04:23 Hgb 15.9 Hct 49.9 Plt Count 110 L Creatinine 1.30 H 1.10 Est GFR (Non-Af Amer) 54 L > 60 Magnesium 1.8 Impressions Retroperitoneum Ultrasound 02/14/17 18:00 IMPRESSION: Unremarkable appearance of the kidneys. Bladder is decompressed. Incidental note of ascites. D/ / 02/14/2017 21:27:14 Michael Lynne MD / liliya Interpreting Provider: Michael Lynne MD Chest X-Ray 02/15/17 23:54 IMPRESSION: Left pleural effusion with left lower lobe atelectasis versus pneumonia. D/ / Nick Ruiz MD / Nick Ruiz MD Interpreting Provider: Nick Ruiz MD Intake & Output 02/12/17 02/13/17 02/14/17 02/15/17 23:59 23:59 23:59 23:59 Intake Total 882 / 882 973 / 973 680 / 680 0 / 0 Output Total 600 / 600 900 / 900 1800 / 1800 Balance 282 / 282 73 / 73 -1120 / -1120 0 / 0 Weight 95.889 kg 96.2 kg 96.5 kg 96.1 kg Active Medications Acetaminophen (Tylenol) 650 mg PO Q6HR PRN PRN Reason: Mild Pain (1-3) Stop: 08/12/17 10:59 Last Admin: 02/10/17 18:27 Dose: 650 mg Acetaminophen/Hydrocodone Bitart ([place] 5-325 Mg) 1 tab PO Q6HR PRN PRN Reason: moderate leg/back pain Stop: 08/16/17 09:29 Apixaban (Eliquis) 5 mg PO BID JANE Stop: 08/16/17 21:01 Last Admin: 02/14/17 21:26 Dose: 5 mg Aspirin (Aspirin) 81 mg PO DAILY [facility] Stop: 08/13/17 09:01 Last Admin: 02/14/17 08:38 Dose: 81 mg Hydrocortisone Sodium Succinate (Solu-Cortef) 50 mg IVP Q8HR [facility] Stop: 08/16/17 16:01 Last Admin: 02/15/17 00:08 Dose: 50 mg Ceftriaxone Sodium 1,000 mg/ (Dextrose) 100 mls @ 200 mls/hr IVPB DAILY [facility] Stop: 08/12/17 12:01 Last Infusion: 02/14/17 09:01 Dose: Infused Diltiazem HCl 125 mg/ Dextrose 125 mls @ 5 mls/hr IVC .Q24H JANE; 5 MG/HR PRN Reason: Protocol Stop: 08/17/17 01:16 Last Admin: 02/15/17 01:27 Dose: 5 mg/hr, 5 mls/hr Lactulose (Lactulose) 10 gm PO BID [facility] Stop: 08/12/17 12:01 Last Admin: 02/14/17 21:26 Dose: 10 gm Magnesium Hydroxide (Milk Of Magnesia Conc) 10 ml PO DAILY PRN PRN Reason: Indigestion Stop: 08/12/17 10:59 Metoprolol Succinate (Toprol Xl) 25 mg PO BID [facility] Stop: 08/16/17 21:01 Last Admin: 02/14/17 21:26 Dose: 25 mg Naloxone HCl (Narcan) 0.4 mg IVP Q2MIN PRN PRN Reason: Opioid Reversal Stop: 08/12/17 10:59 Ondansetron HCl (Zofran) 4 mg IVP Q8HR PRN PRN Reason: Nausea And Vomiting Stop: 08/12/17 10:59 Last Admin: 02/15/17 00:08 Dose: 4 mg Polyethylene Glycol (Miralax) 17 gm PO BID PRN PRN Reason: Constipation Stop: 08/15/17 10:49 Senna/Docusate Sodium (Senna Plus) 1 each PO BID [facility] PRN Reason: Protocol Stop: 08/14/17 21:01 Last Admin: 02/14/17 21:26 Dose: 1 each Tamsulosin HCl (Flomax) 0.8 mg PO DAILY [facility] PRN Reason: Protocol Stop: 08/13/17 09:01 Last Admin: 02/14/17 08:38 Dose: 0.8 mg - Imaging and Cardiology Cardiac cath: report reviewed - EKG Interpretation EKG results cardiology: other (24 times reviewed with average heart rate 113, remains atrophic relation, currently atrial fibrillation/flutter on telemetry in the 110s) - VTE Documentation of Mechanical Device: Graduated compression elastic hosiery Consult Discharge Plan - Plan Referrals: Chad Srivastava MD [Primary Care Provider] - 02/20/17 1:15 pm (Office will call you if an appointment becomes open at a earlier date)
[2017-02-15] MEDS: Lactulose Oral Soln 20 GM/30 ML UDC PO SCH ×2 (08:26→21:22)
[2017-02-15] MEDS: Metoprolol XL (24 HR) Succ 50 MG TAB.ER.24H PO SCH (08:26)
[2017-02-15] MEDS: Sennosides/Docusate Sodium TABLET PO SCH ×2 (08:27→21:23)
[2017-02-15] MEDS: APIXABAN 5 MG TABLET PO SCH ×2 (08:27→21:23)
[2017-02-15] MEDS: Aspirin 81 MG TAB.CHEW PO SCH (08:27)
[2017-02-15] MEDS ORDERED: PREDNISONE 10 MG PO SCH (09:00)
[2017-02-15] MEDS ORDERED: Amiodarone Premix 360 MG/200 ML BAG IVC ONE ×2 (09:59→13:06)
[2017-02-15] MEDS ORDERED: Amiodarone Premix 150 MG/100 ML BAG IVPB ONE ×2 (09:59→13:06)
[2017-02-15] MEDS ORDERED: Amiodarone Premix 360 MG/200 ML BAG IVC SCH (10:00)
[2017-02-15] MEDS ORDERED: Furosemide 20 MG/2 ML VIAL IVP ONE ×2 (10:01→16:34)
[2017-02-15] MEDS ORDERED: Metoprolol XL (24 HR) Succ 25 MG TAB.ER.24H PO ONE (10:02)
--- NOTE | 2017-02-15 10:41 | Internal Med Progress Note ---
Date of Encounter: 02/15/17 Time of Encounter: 10:40 - Assessment and plan (1) Atrial fibrillation with RVR Current Visit: Yes Status: Acute Assessment and plan: Rate poorly controlled s/p LHC currently on cardizem gtt, awaiting ICU bed/2N bed for initiation of amiodarone drip started anticoagulation with Eliquis 5mg PO BID continue tele monitoring will closely monitor (2) Dweps-wp-qxfsmpi kidney injury Current Visit: Yes Status: Acute Assessment and plan: Resolved renal function at baseline will continue to monitor (3) Pleural effusion Current Visit: Yes Status: Acute Assessment and plan: Patient is on ceftriaxone empirically for questionable infiltrates in left base , will continue at this time repeat CXR improved continue abx for a total of 7 days (Day 6/7) leukocytosis secondary to steroid therapy(hydrocortisone) added for spinal stenosis (4) DVT prophylaxis Current Visit: Yes Status: Acute Assessment and plan: anticoagulated with Eliquis (5) Sciatica Current Visit: Yes Status: Acute Assessment and plan: MRI of the lumbar spine will be performed. Dr. Mcmillan consultation appreciated no acute intervention at this time continue steroid taper PT eval Qualifiers: Qualified Code(s): M54.30 - Sciatica, unspecified side (6) Cardiomyopathy Current Visit: Yes Status: Chronic Qualifiers: Cardiomyopathy type: unspecified Qualified Code(s): I42.9 - Cardiomyopathy , unspecified - Subjective Interval history: Pt seen and examined at bedside. Patient reports of feeling well. noted to have poorly rate control Afib overnight requiring initiation of cardizem gtt. - Constitutional Vitals: Temp Pulse Resp BP Pulse Ox 98.2 F 95 18 115/90 94 02/15/17 08:09 02/15/17 08:09 02/15/17 08:09 02/15/17 08:09 02/15/17 09:00 General appearance: Present: cooperative, A&O X 3, pleasant, no acute distress, obese, answers questions appropriately - Head Head exam: Present: atraumatic, normocephalic - Eye Eye exam: Present: normal appearance, conjuntiva pink, sclera anicteric - Respiratory Respiratory exam: Present: CTAB. Absent: respiratory distress, wheezes - Cardiovascular Cardiovascular exam: Present: irregular rhythm, +S1, +S2 - GI/Abdominal GI/Abdominal exam: Present: normal bowel sounds, soft, no peritoneal signs. Absent: distended, tenderness - Extremities Exam Extremities exam: Present: warm, radial pulses palpable and symetrical. Absent : calf tenderness, pedal edema, tenderness - Neurological Exam Neurological exam: Present: alert, oriented X3 - Psychiatric Psychiatric exam: Present: normal affect, normal mood Internal Medicine: Result - Labs CBC & Chem 7: 02/15/17 04:23 02/15/17 04:23 Labs: Short CBC 02/15/17 Range/Units 04:23 WBC 14.4 H (4.3-11.1) K/mcL Hgb 15.9 (12.9-16.9) g/dL Hct 49.9 (37.5-50.1) % Plt Count 110 L (140-400) K/mcL Neutrophils # 12.4 H (1.6-8.9) K/mcL BMP 02/15/17 04:23 Sodium 138 Potassium 4.5 Chloride 105 Carbon Dioxide 23 BUN 48 H Creatinine 1.10 Glucose 148 H Calcium 8.5 L - ABG Interpretation ABG results: PT/INR, D-dimer PT 15.2 Seconds (9.4-12.1) H 02/12/17 12:40 - Impressions Impressions Retroperitoneum Ultrasound 02/14/17 18:00 IMPRESSION: Unremarkable appearance of the kidneys. Bladder is decompressed. Incidental note of ascites. D/ / 02/14/2017 21:27:14 Michael Lynne MD / liliya Interpreting Provider: Michael Lynne MD Chest X-Ray 02/15/17 23:54 IMPRESSION: Left pleural effusion with left lower lobe atelectasis versus pneumonia. D/ / Nick Ruiz MD / Nick Ruiz MD Interpreting Provider: Nick Ruiz MD - VTE Documentation of Mechanical Device: Graduated compression elastic hosiery Consult Discharge Plan - Plan Referrals: Chad Srivastava MD [Primary Care Provider] - 02/20/17 1:15 pm (Office will call you if an appointment becomes open at a earlier date)
--- NOTE | 2017-02-15 11:11 | Nephrology Progress Note ---
Date of Encounter: 02/15/17 Time of Encounter: 11:00 - Assessment and Plan (1) SONNY (acute kidney injury) Current Visit: Yes Status: Acute SCr normalized at 1.1, GFR >60 UOP good Continue to avoid nephrotoxins if possible Will sign off, please reconsult prn. can followup with me in 4-6 weeks on discharge with BMP in 2 weeks or with pcp as long as BMP re-checked US of kidney noted unremarkable (2) Atrial fibrillation with RVR Current Visit: Yes Status: Acute Per cardiology (3) Urinary retention Current Visit: Yes Status: Acute UOp improved Urology to see outpatient for further workup Subjective Principal diagnosis: Afib RVR Interval history: Pt seen and examined with no new complaints. s/p LHC with no intervention and now off heparin on eliquis instead.Stll with Afib requiring cardizem gtt Objective - Vital Signs Vital signs: Vital Signs Temp Pulse Resp BP Pulse Ox 02/15/17 09:00 94 02/15/17 08:09 98.2 F 95 18 115/90 94 02/15/17 04:59 80 16 124/79 94 02/14/17 23:53 97.4 F L 103 20 140/86 97 02/14/17 20:59 89 16 127/88 95 02/14/17 15:58 120 16 134/101 94 02/14/17 15:29 74 105/57 Intake and Output 02/14/17 02/15/17 02/15/17 23:59 07:59 15:59 Intake Total 240 / 240 0 / 0 200 / 200 Output Total 200 / 200 0 / 0 Balance 40 / 40 0 / 0 200 / 200 Intake: Oral 240 / 240 0 / 0 200 / 200 Output: Urine 200 / 200 0 / 0 Urethral (Jensen) 200 / 200 Other: Meal Dinner Percent of Meal Consumed 50% Weight 96.1 kg Patient Weight 02/15/17 23:59 Weight 96.1 kg - General Appearance General appearance: Present: well-developed, well-nourished EENT: Present: ATNC Neck: Present: no JVD, supple Respiratory: Present: clear Cardiology: Present: no edema, irregular rhythm, normal S1, normal S2 Gastrointestinal: Present: no tenderness, no guarding Integumentary: Present: no rash, warm and dry Neurologic: Present: no focal deficit Musculoskeletal: Present: no deformities Psychiatric: Present: mood/affect appropriate - Lab 02/15/17 04:23 02/15/17 04:23 Most recent lab results Calcium 8.5 mg/dL (8.6-10.8) L 02/15/17 04:23 Phosphorus 3.1 mg/dL (2.3-4.7) 02/15/17 04:23 Magnesium 1.8 mg/dL (1.6-2.6) 02/15/17 04:23 Urine Creatinine 184 mg/dL 02/11/17 22:46 Urine Sodium < 20.0 mEq/L 02/11/17 22:46 - VTE Documentation of Mechanical Device: Graduated compression elastic hosiery Consult Discharge Plan - Plan Referrals: Chad Srivastava MD [Primary Care Provider] - 02/20/17 1:15 pm (Office will call you if an appointment becomes open at a earlier date)
[2017-02-15] MEDS ORDERED: *HR* Digoxin 0.5 MG/2 ML AMPUL IVP ONE (11:27)
--- NOTE | 2017-02-15 11:35 | Palliative Progress Note ---
Date of Encounter: 02/15/17 Time of Encounter: 11:25 - Assessment and plan (1) Constipation Current Visit: No Status: Acute Assessment and plan: Continue current bowel regimen with Senokot and Miralax. Monitor Qualifiers: Constipation type: unspecified constipation type Qualified Code(s): K59.00 - Constipation, unspecified (2) Pain Current Visit: No Status: Acute Assessment and plan: Continue [place] PRN. has not utilized in the last 24 hours (3) Goals of care, counseling/discussion Current Visit: Yes Status: Acute Assessment and plan: Discussed goals of care - pt now understands he is not able to be home alone in current condition. He desires to go to rehab on d/c. 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 Discussed with Mata over telephone and he is agreeable. Discussed options with patient after rehab, including home health and hospice care. He is hospice eligible based on symptoms and EF if he desires to focus on comfort measures only, and does not desire to continue to return to hospital, but manage symptoms at home. Patient verbalized understanding and states, "we will start with rehab and take one day at a time" . Mata planning on visiting tomorrow around 10-1100. Continue to follow. - Time Spent With Patient Total time spent is greater than 50% in coordination of care (as documented) at patient's floor/unit and/or counseling patient: 25 - 35 minutes - Subjective Interval history: Patient states "rough night", but feeling much better this am. States had shortness of breath last pm. Awaiting 2N bed for initiation of amiodarone drip. Cardiology in during my visit, and cardioversion planned for tomorrow. + BM yesterday. States Rt leg not bothering him today. - Constitutional Vitals: Abnormal lab results WBC 14.4 K/mcL (4.3-11.1) H 02/15/17 04:23 RDW 16.6 % (11.5-14.5) H 02/15/17 04:23 Plt Count 110 K/mcL (140-400) L 02/15/17 04:23 Neutrophils # 12.4 K/mcL (1.6-8.9) H 02/15/17 04:23 Nucleated RBCs/100 WBC 2.9 /100 WBC (0) H 02/15/17 04:23 Immature Plt Fraction 18.8 % (1.1-6.1) H 02/13/17 05:12 PT 15.2 Seconds (9.4-12.1) H 02/12/17 12:40 APTT 59.1 Seconds (26.0-36.0) H 02/13/17 18:22 Heparin Anti-Xa, Unfract 0.80 IU/mL (0.30-0.70) H 02/13/17 05:12 BUN 48 mg/dL (8-26) H 02/15/17 04:23 BUN/Creatinine Ratio 44 (6-26) H 02/15/17 04:23 Glucose 148 mg/dL (70-99) H 02/15/17 04:23 Calculated Osmolality 301 (280-300) H 02/15/17 04:23 Lactic Acid 2.3 mmol/L (0.5-2.2) H 02/11/17 20:36 Uric Acid 11.0 mg/dL (3.5-7.2) H 02/11/17 19:40 Calcium 8.5 mg/dL (8.6-10.8) L 02/15/17 04:23 AST 36 Units/L (5-34) H 02/11/17 00:56 Troponin I 0.08 ng/mL (0-0.03) H* 02/10/17 19:25 B-Natriuretic Peptide 374 pg/mL (0-100) H 02/10/17 11:04 Albumin 2.9 g/dL (3.5-5.0) L 02/11/17 00:56 Albumin/Globulin Ratio 0.9 (1.1-2.2) L 02/11/17 00:56 Cholesterol 206 mg/dL (< 200) H 02/10/17 12:31 LDL Cholesterol, Calc 139 mg/dL (0-99) H 02/10/17 12:31 General appearance: Present: no acute distress - Respiratory Respiratory exam: Present: decreased breath sounds, CTAB - Cardiovascular Cardiovascular exam: Present: irregular rhythm - GI/Abdominal GI/Abdominal exam: Present: normal bowel sounds, soft - Extremities Exam Extremities exam: Present: normal capillary refill, normal inspection - Neurological Exam Neurological exam: Present: alert, oriented X3, strengths equal and symetr throughout - Skin Skin exam: Present: dry, pallor, warm Palliative Quality Palliative Quality: Screen for Code Status: No, Screen for Goals of Care: Yes, Screen for Pain: Yes, Screen for Nausea/Vomitting: Yes - Labs CBC & Chem 7: 02/15/17 04:23 02/15/17 04:23 Labs: Laboratory Results - last 24 hr 02/15/17 02/15/17 04:23 04:23 WBC 14.4 H RBC 5.20 Hgb 15.9 Hct 49.9 MCV 96.0 MCH 30.6 MCHC 31.9 RDW 16.6 H Plt Count 110 L MPV 12.4 Immature Gran % 0.7 Seg Neutrophils % 86.2 Lymphocytes % 4.4 Monocytes % 8.6 Eosinophils % 0.0 Basophils % 0.1 Neutrophils # 12.4 H Lymphocytes # 0.6 Monocytes # 1.2 Eosinophils # 0.0 Basophils # 0.0 Nucleated RBCs/100 WBC 2.9 H Sodium 138 Potassium 4.5 Chloride 105 Carbon Dioxide 23 BUN 48 H Creatinine 1.10 Est GFR ( Amer) > 60 Est GFR (Non-Af Amer) > 60 BUN/Creatinine Ratio 44 H Glucose 148 H Calculated Osmolality 301 H Calcium 8.5 L Phosphorus 3.1 Magnesium 1.8 - Impressions Impressions Retroperitoneum Ultrasound 02/14/17 18:00 IMPRESSION: Unremarkable appearance of the kidneys. Bladder is decompressed. Incidental note of ascites. D/ / 02/14/2017 21:27:14 Michael Lynne MD / liliya Interpreting Provider: Michael Lynne MD Chest X-Ray 02/15/17 23:54 IMPRESSION: Left pleural effusion with left lower lobe atelectasis versus pneumonia. D/ / Nick Ruiz MD / Nick Ruiz MD Interpreting Provider: Nick Ruiz MD - ABG Interpretation ABG results: PT/INR, D-dimer PT 15.2 Seconds (9.4-12.1) H 02/12/17 12:40 Consult Discharge Plan - Plan Referrals: Chad Srivastava MD [Primary Care Provider] - 02/20/17 1:15 pm (Office will call you if an appointment becomes open at a earlier date)
[2017-02-15] MEDS ORDERED: Ondansetron 4 MG/2 ML VIAL IVP PRN (13:06)
[2017-02-15] MEDS ORDERED: MOM Conc 10 ML UD.LIQ PO PRN (13:06)
[2017-02-15] MEDS ORDERED: Naloxone 0.4 MG/ML INJ IVP PRN (13:06)
--- NOTE | 2017-02-15 15:34 | Event Note ---
Date of Encounter: 02/15/17 Time of Encounter: 15:30 - Cardiology Event Note Currently afib 85 on tele and amio gtt infusing.
--- NOTE | 2017-02-15 15:52 | Electrocardiograph Report ---
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
[2017-02-15] MEDS ORDERED: Hydrocortisone Sodium Succ 100 MG/2 ML VIAL IVP SCH (16:00)
[2017-02-15] MEDS: Amiodarone Premix 360 MG/200 ML BAG IVC SCH (20:19)
[2017-02-15] MEDS ORDERED: Metoprolol XL (24 HR) Succ 50 MG TAB.ER.24H PO SCH (21:00)
[2017-02-15] MEDS: Metoprolol XL (24 HR) Succ 25 MG TAB.ER.24H PO SCH (21:23)
[2017-02-16] MEDS: Amiodarone Premix 360 MG/200 ML BAG IVC SCH ×2 (07:30→20:13)
[2017-02-16] MEDS: Aspirin 81 MG TAB.CHEW PO SCH (07:33)
[2017-02-16] MEDS: *HR* HYDROcodone/Acet 5/325 mg TABLET PO PRN (07:33)
[2017-02-16] MEDS: Lactulose Oral Soln 20 GM/30 ML UDC PO SCH ×2 (07:33→20:13)
[2017-02-16] MEDS: Sennosides/Docusate Sodium TABLET PO SCH ×2 (07:33→20:13)
[2017-02-16] MEDS: APIXABAN 5 MG TABLET PO SCH ×2 (07:34→20:14)
[2017-02-16] MEDS: Metoprolol XL (24 HR) Succ 25 MG TAB.ER.24H PO SCH ×2 (07:34→20:14)
[2017-02-16] MEDS ORDERED: Levofloxacin 750 MG/150 ML 750 MG/150 ML BAG IVPB SCH (09:00)
[2017-02-16 09:25] LABS: Bilirubin,Urine Negative (Negative); Blood,Urine Large (Negative); Clarity,Urine Cloudy (Clear); Color,Urine Dark Yellow (Yellow); Glucose,Urine (UA) Normal (Normal); Ketones,Urine Negative (Negative); Leukocyte Esterase,Urine Small (Negative); Nitrite,Urine Negative (Negative); Protein,Urine 30 mg/dL (Neg-Trace); Specific Gravity,Urine 1.029 (1.010-1.025); Urobilinogen,Urine Normal (Normal)
[2017-02-16 09:44] LABS: RBC,Urine 50-100 per hpf (0-3)
[2017-02-16 09:45] LABS: Bacteria,Urine Few per hpf (None-Few); Hyaline Casts,Urine Few per lpf (None-Few); Squamous Epithelial Cell,Urine Few per lpf (None-Few); WBC,Urine 0-3 per hpf (0-3)
--- NOTE | 2017-02-16 10:40 | Event Note ---
Date of Encounter: 02/16/17 Time of Encounter: 10:39 - Cardiology Event Note Pt remains in A-Fib/Flutter with RVR on Amio gtt. 12 hour tele AVG HR 121. Recommend SHIVAM/DCCV. R/B/A discussed. Pt agrees to proceed.
--- NOTE | 2017-02-16 11:17 | Palliative Progress Note ---
Date of Encounter: 02/16/17 Time of Encounter: 11:00 - Assessment and plan (1) Constipation Current Visit: No Status: Acute Assessment and plan: + BM's. Continue bowel regimen and monitor Qualifiers: Constipation type: unspecified constipation type Qualified Code(s): K59.00 - Constipation, unspecified (2) Pain Current Visit: No Status: Acute Assessment and plan: Continue [place] PRN. Utilized x1 last 24 hours (3) Goals of care, counseling/discussion Current Visit: Yes Status: Acute Assessment and plan: Dr. Tafoya in and discussing cardioversion. He is hopeful pt heart will strengthen after procedure and rate control. He is open to rehab. Nephew given copies of POA and DNR form. Will continue to follow at a distance and monitor clinical course. - Time Spent With Patient Total time spent is greater than 50% in coordination of care (as documented) at patient's floor/unit and/or counseling patient: 25 - 35 minutes - Subjective Interval history: Patient states "another rough night", with shortness of breath. Dr. Tafoya in to discuss cardioversion tomorrow. Nephew at bedside. - Constitutional Vitals: Abnormal lab results WBC 14.4 K/mcL (4.3-11.1) H 02/15/17 04:23 RDW 16.6 % (11.5-14.5) H 02/15/17 04:23 Plt Count 110 K/mcL (140-400) L 02/15/17 04:23 Neutrophils # 12.4 K/mcL (1.6-8.9) H 02/15/17 04:23 Nucleated RBCs/100 WBC 2.9 /100 WBC (0) H 02/15/17 04:23 Immature Plt Fraction 18.8 % (1.1-6.1) H 02/13/17 05:12 PT 15.2 Seconds (9.4-12.1) H 02/12/17 12:40 APTT 59.1 Seconds (26.0-36.0) H 02/13/17 18:22 Heparin Anti-Xa, Unfract 0.80 IU/mL (0.30-0.70) H 02/13/17 05:12 BUN 48 mg/dL (8-26) H 02/15/17 04:23 BUN/Creatinine Ratio 44 (6-26) H 02/15/17 04:23 Glucose 148 mg/dL (70-99) H 02/15/17 04:23 Calculated Osmolality 301 (280-300) H 02/15/17 04:23 Lactic Acid 2.3 mmol/L (0.5-2.2) H 02/11/17 20:36 Uric Acid 11.0 mg/dL (3.5-7.2) H 02/11/17 19:40 Calcium 8.5 mg/dL (8.6-10.8) L 02/15/17 04:23 AST 36 Units/L (5-34) H 02/11/17 00:56 Troponin I 0.08 ng/mL (0-0.03) H* 02/10/17 19:25 B-Natriuretic Peptide 374 pg/mL (0-100) H 02/10/17 11:04 Albumin 2.9 g/dL (3.5-5.0) L 02/11/17 00:56 Albumin/Globulin Ratio 0.9 (1.1-2.2) L 02/11/17 00:56 Cholesterol 206 mg/dL (< 200) H 02/10/17 12:31 LDL Cholesterol, Calc 139 mg/dL (0-99) H 02/10/17 12:31 Urine Clarity Cloudy (Clear) A 02/16/17 09:00 Ur Specific [place] 1.029 (1.010-1.025) H 02/16/17 09:00 Urine Protein 30 mg/dL (Neg-Trace) H 02/16/17 09:00 Urine Blood Large (Negative) H 02/16/17 09:00 Ur Leukocyte Esterase Small (Negative) H 02/16/17 09:00 Urine Microscopic RBC 50-100 per hpf (0-3) H 02/16/17 09:00 Ur Culture Indicated? YES (NO) A 02/16/17 09:00 General appearance: Present: mild distress - Respiratory Respiratory exam: Present: decreased breath sounds, CTAB - Expanded Respiratory Exam Location: decreased breath sounds: Left, Lower, rales: Right, Lower - Cardiovascular Cardiovascular exam: Present: irregular rhythm - GI/Abdominal GI/Abdominal exam: Present: normal bowel sounds, soft - Additional comments: Light [place]go urine - Extremities Exam Extremities exam: Present: normal capillary refill, normal inspection, pedal edema - Neurological Exam Neurological exam: Present: alert, oriented X3, strengths equal and symetr throughout - Skin Skin exam: Present: dry, warm Palliative Quality Palliative Quality: Screen for Code Status: No, Screen for Goals of Care: Yes, Screen for Pain: Yes, Screen for Nausea/Vomitting: Yes - Labs CBC & Chem 7: 02/15/17 04:23 02/15/17 04:23 Labs: Laboratory Results - last 24 hr 02/16/17 09:00 Urine Color Dark Yellow Urine Clarity Cloudy A Urine pH 6.0 Ur Specific [place] 1.029 H Urine Protein 30 H Urine Glucose (UA) Normal Urine Ketones Negative Urine Blood Large H Urine Nitrite Negative Urine Bilirubin Negative Urine Urobilinogen Normal Ur Leukocyte Esterase Small H Urine Microscopic RBC 50-100 H Urine Microscopic WBC 0-3 Ur Squamous Epith Cells Few Urine Bacteria Few Hyaline Casts Few Ur Culture Indicated? YES A - ABG Interpretation ABG results: PT/INR, D-dimer PT 15.2 Seconds (9.4-12.1) H 02/12/17 12:40 Consult Discharge Plan - Plan Referrals: Chad Srivastava MD [Primary Care Provider] - 02/20/17 1:15 pm (Office will call you if an appointment becomes open at a earlier date)
--- NOTE | 2017-02-16 11:20 | Internal Med Progress Note ---
Date of Encounter: 02/16/17 Time of Encounter: 11:18 - Assessment and plan (1) Atrial fibrillation with RVR Current Visit: Yes Status: Acute Assessment and plan: Rate poorly controlled s/p C with no changes in CAD Patient still on amio continue same Cardiology plans on SHIVAM conversion a.m Continue Eliquis 5mg PO BID Continue Digoxin/Toprol continue tele monitoring Cardiology evaluation appreciated (2) Pleural effusion Current Visit: Yes Status: Acute Assessment and plan: Patient was on ceftriaxone empirically for questionable infiltrates in left base , has completed 7 days of therapy Leukocytosis is persistent, secondary to steroids Repeat CXR done last night with peristent infiltrate and effusion (3) CKD (chronic kidney disease) Current Visit: Yes Status: Acute Qualifiers: Chronic kidney disease stage: stage 3 (moderate) Qualified Code(s): N18.3 - Chronic kidney disease, stage 3 (moderate) (4) Cardiomyopathy Current Visit: Yes Status: Chronic Assessment and plan: Secondary to CAD management per cardio Qualifiers: Cardiomyopathy type: unspecified Qualified Code(s): I42.9 - Cardiomyopathy , unspecified (5) [id number] kidney injury Current Visit: Yes Status: Acute Assessment and plan: Resolved renal function at baseline will continue to monitor (6) CAD (coronary artery disease) Current Visit: Yes Status: Chronic Assessment and plan: Echo July 2014 showed EF preserved at 60%. Current echo shows EF 15-20%, RV size with severe reduction in global function, mild MR, [id number] TR, mild CA. New severe cardiomyopathy. Known CAD, prior CABG. Known 2/3 patient grafts-- cath showed no significant changes. Qualifiers: Coronary Disease-Associated Artery/Lesion type: unspecified vessel or lesion type Three Affiliated vs. transplanted heart: elem heart Associated angina: without angina Qualified Code(s): I25.10 - Atherosclerotic heart disease of elem coronary artery without angina pectoris (7) CHF (congestive heart failure) Current Visit: Yes Status: Acute Assessment and plan: Echo July 2014 showed EF preserved at 60%. ECHO this admission revealed EF 15-20%, RV size with severe reduction in global function, mild MR, [id number] TR, mild CA. New severe cardiomyopathy. Known CAD, prior CABG. Known 2/3 patient grafts-- cath showed no significant changes. Patient with orthopnea and pedal edema Continue lasix ON troprol,continue same Renal function stable now, continue to monitor Qualifiers: Congestive heart failure type: systolic Congestive heart failure chronicity : acute Qualified Code(s): I50.21 - Acute systolic (congestive) heart failure (8) UTI (urinary tract infection) Current Visit: Yes Status: Suspected Assessment and plan: Suspected, had completed 7 days of ceftriaxone Will give levoflox q48H , will d/c levo if urine culture is negative Qualifiers: Urinary tract infection type: site unspecified Hematuria presence: with hematuria Qualified Code(s): N39.0 - Urinary tract infection, site not specified; R31.9 - Hematuria, unspecified - Subjective Interval history: Seen and evaluated at bedside reports an episode of dyspnea overnight, but states he feels better this morning HR remains uncontrolled, on amio, cardiology following Patient is planned foe SHIVAM cardioversion tmrw a.m He remains high risk of cardio-pulmonary compromise - Constitutional Vitals: Temp Pulse Resp BP Pulse Ox 97.4 F L 121 18 114/90 98 02/16/17 11:05 02/16/17 11:05 02/16/17 11:05 02/16/17 11:05 02/16/17 11:05 General appearance: Present: cooperative, A&O X 3, pleasant, no acute distress, obese, answers questions appropriately - Head Head exam: Present: atraumatic, normocephalic - Eye Eye exam: Present: PERRL, conjuntiva pink, sclera anicteric Pupils: Present: PERRL - Neck Neck exam general surgery: Present: supple, trachea midline. Absent: lymphadenopathy - Respiratory Respiratory exam: Present: CTAB. Absent: accessory muscle use, rales, rhonchi, wheezes - Cardiovascular Cardiovascular exam: Present: irregular rhythm, +S1, +S2, tachycardia - GI/Abdominal GI/Abdominal exam: Present: normal bowel sounds, soft, no peritoneal signs. Absent: distended, tenderness - Extremities Exam Extremities exam: Present: pedal edema (1+ pitting pedal edema bilaterally), warm, radial pulses palpable and symetrical. Absent: calf tenderness, cyanotic - Neurological Exam Neurological exam: Present: alert, CN II-XII intact, oriented X3, no focal deficits. Absent: pronater drift, facial droop, speech deficit - Skin Skin exam: Present: dry, intact Internal Medicine: Result - Labs CBC & Chem 7: 05/31/17 04:23 02/15/17 04:23 Labs: Urine 02/16/17 Range/Units 09:00 Urine Color Dark Yellow (Yellow) Urine Clarity Cloudy A (Clear) Urine pH 6.0 (5.0-8.0) pH Units Ur Specific [place] 1.029 H (1.010-1.025) Urine Protein 30 H (Neg-Trace) mg/dL Urine Glucose (UA) Normal (Normal) mg/dL - ABG Interpretation ABG results: PT/INR, D-dimer PT 15.2 Seconds (9.4-12.1) H 02/12/17 12:40 - VTE Documentation of Mechanical Device: Graduated compression elastic hosiery Consult Discharge Plan - Plan Referrals: Chad Srivastava MD [Primary Care Provider] - 02/20/17 1:15 pm (Office will call you if an appointment becomes open at a earlier date)
--- NOTE | 2017-02-16 11:25 | Cardiology Progress Note ---
Date of Encounter: 02/16/17 Time of Encounter: 11:24 Assessment and Plan (1) Atrial fibrillation with RVR Current Visit: Yes Status: Acute Per Cardiology: He had previously maintained sinus rhythm since AF ablation in 2012 ([place]). Continues to be in uncontrolled afib with avg HR past 12 hrs 121. Initiated IV Amiodarone bolus and gtt yesterday. Remains off ARB/HCTZ to allow for SBP room for med titration. Received IV Digoxin 0.25mg x 1 Monday. SBP now 110's-120's. Toprol XL increased to 37.5mg PO BID yesterday. Echo shows severe reduction on RV fxn and EF 15-20%. Regarding long-term anticoagulation, [id number] score 3, now on Eliquis 5mg PO BID--(Eliquis ortega check $48 per month). Pt not clinically ready for SHIVAM/DCCV. Will cautiously diuresis and re-evaluate in AM. Will also discuss with Dr. Tafoya regarding Digoxin loading. Renal function now normalized. (2) Cardiomyopathy Current Visit: Yes Status: Chronic Per Cardiology: Patient describes progressive dyspnea since September 2016. Echo July 2014 showed EF preserved at 60%. Current echo shows EF 15-20%, RV size with severe reduction in global function, mild MR, [id number] TR, mild [place]. New severe cardiomyopathy. Known CAD, prior CABG. Known 2/3 patient grafts-- cath showed no significant changes. Suspect tachycardia induced. BNP mildly elevated at 374 on arrival. Mild edema this am. Pt received one dose of IV Lasix 20mg yesterday. Renal function improved. Episode of acute worsened dyspnea last night now improved. Will give another dose of IV Lasix, cautious diuresis. Qualifiers: Cardiomyopathy type: unspecified Qualified Code(s): I42.9 - Cardiomyopathy , unspecified (3) CAD (coronary artery disease) Current Visit: Yes Status: Acute Known CAD, prior CABG. Known 2/3 patient grafts-- cath showed no significant changes. ASA, BB. Hx of statin intolerance. Qualifiers: Coronary Disease-Associated Artery/Lesion type: unspecified vessel or lesion type [place] vs. transplanted heart: [place] heart Associated angina: without angina Qualified Code(s): I25.10 - Atherosclerotic heart disease of [place] coronary artery without angina pectoris Discussion w patient/family: The assessment and plan as outlined above was discussed with the patient and/or family members who expressed understanding and agreement. All questions were answered. Thank you for involving us in the care of your patient. Please call with any questions. I will discuss all the above with Dr. Tafoya and make changes as necessary. Subjective Principal diagnosis: Afib RVR Interval history: Pt reports he became short of breath at 11PM last night, but has since improved since HR has decreased. HR at bedside 110s-130s. IV amio gtt infusing. He denies chest pain or palpitations. SHIVAM/DCCV cancelled due to needing diuresed and not ready clinically. Objective Vital Signs, Last 4 Hours Temp Pulse Resp BP Pulse Ox 02/16/17 11:05 97.4 F L 121 18 114/90 98 02/16/17 10:00 97.6 F 121 20 122/101 97 02/16/17 07:45 97.6 F 137 20 116/109 97 Vital Signs Temp Pulse Resp BP Pulse Ox 02/16/17 11:05 97.4 F L 121 18 114/90 98 02/16/17 10:00 97.6 F 121 20 122/101 97 02/16/17 07:45 97.6 F 137 20 116/109 97 02/16/17 06:32 97.6 F 137 20 116/109 97 02/16/17 06:25 116 117/102 02/16/17 05:28 154 147/97 02/16/17 04:25 109 02/16/17 03:25 97 114/101 02/16/17 03:13 133 02/16/17 02:53 124 122/92 02/16/17 00:25 115 128/99 02/15/17 23:25 116 127/96 02/15/17 23:02 97.8 F 123 17 124/99 96 02/15/17 22:25 112 128/103 02/15/17 21:27 112 122/102 02/15/17 20:45 110 110/86 02/15/17 19:45 103 125/86 02/15/17 19:22 97.4 F L 97 21 115/81 95 02/15/17 16:20 97.8 F 99 18 137/99 96 02/15/17 13:04 97.8 F 99 18 137/99 96 02/15/17 13:00 97.8 F 99 18 137/99 96 02/15/17 11:40 97.6 F 77 17 146/89 97 Intake and Output 02/15/17 02/16/17 02/16/17 23:59 07:59 15:59 Intake Total 940 / 940 260 / 260 100 / 100 Output Total 2900 / 2900 375 / 375 Balance -1960 / -1960 -115 / -115 100 / 100 Intake: IV Fluids 200 / 200 200 / 200 100 / 100 Amiodarone Drip Premix 200 / 200 200 / 200 360mg/200mL 360 mg In 200 ml @ 0.5 MG/MIN 16.667 mls/hr IVC CONT JANE Rx#: [id number] Rocephin 1,000 MG In 100 / 100 Dextrose 5% (Minibag+) 100 ML 100 ML @ 200 mls/ hr IVPB DAILY J[facility] Rx#: [id number] Oral 740 / 740 60 / 60 Output: Urine 1000 / 1000 125 / 125 Urethral ([place]) 1000 / 1000 0 / 0 Catheter 1900 / 1900 250 / 250 Other: Meal 2 packs lizette grams NPO except meds NPO at this time Percent of Meal Consumed 100% Stool Size Small Stool Consistency soft formed Stool Color Brown Weight 98 kg Patient Weight 02/16/17 23:59 Weight 98 kg General: Conversant, No Apparent Distress HEENT: Atraumatic, Normocephaly, Mucus Membranes Moist Neck: Normal carotid pulses Cardiac: Other (irregularly irregular) Lungs: Normal Breath Sounds, No Wheeze, Rales, Rhonchi Neuro: Alert and responsive, No focal deficits noted Abdomen: Soft, Non-Tender Skin: No rashes noted on visualized skin Musculoskeletal: No Chest Wall Tenderness Extremities: Other (1+ BLE edema ) Results 02/15/17 04:23 02/15/17 04:23 Urine 02/16/17 Range/Units 09:00 Urine Color Dark Yellow (Yellow) Urine Clarity Cloudy A (Clear) Urine pH 6.0 (5.0-8.0) pH Units Ur Specific [place] 1.029 H (1.010-1.025) Urine Protein 30 H (Neg-Trace) mg/dL Urine Glucose (UA) Normal (Normal) mg/dL Active Medications Acetaminophen (Tylenol) 650 mg PO Q6HR PRN PRN Reason: Mild Pain (1-3) Stop: 08/12/17 10:59 Acetaminophen/Hydrocodone Bitart ([place] 5-325 Mg) 1 tab PO Q6HR PRN PRN Reason: moderate leg/back pain Stop: 08/16/17 09:29 Last Admin: 02/16/17 07:33 Dose: 1 tab Apixaban (Eliquis) 5 mg PO BID [facility] Stop: 08/16/17 21:01 Last Admin: 02/16/17 07:34 Dose: 5 mg Aspirin (Aspirin) 81 mg PO DAILY [facility] Stop: 08/13/17 09:01 Last Admin: 02/16/17 07:33 Dose: 81 mg Amiodarone HCl/Dextrose (Amiodarone Drip Premix 360mg/200ml) 360 mg in 200 mls @ 16.667 mls/hr IVC CONT JANE PRN Reason: 0.5 MG/MIN Stop: 08/17/17 10:01 Last Admin: 02/16/17 07:30 Dose: 0.5 mg/min, 16.667 mls/hr Levofloxacin/Dextrose (Levaquin Premix 750mg/150 Ml) 750 mg in 150 mls @ 100 mls/hr IVPB DAILY [facility] PRN Reason: Protocol Stop: 08/18/17 09:01 Lactulose (Lactulose) 10 gm PO BID [facility] Stop: 08/12/17 12:01 Last Admin: 02/16/17 07:33 Dose: 10 gm Magnesium Hydroxide (Milk Of Magnesia Conc) 10 ml PO DAILY PRN PRN Reason: Indigestion Stop: 08/12/17 10:59 Metoprolol Succinate (Toprol Xl) 37.5 mg PO BID [facility] Stop: 08/17/17 21:01 Last Admin: 02/16/17 07:34 Dose: 37.5 mg Naloxone HCl (Narcan) 0.4 mg IVP Q2MIN PRN PRN Reason: Opioid Reversal Stop: 08/12/17 10:59 Ondansetron HCl (Zofran) 4 mg IVP Q8HR PRN PRN Reason: Nausea And Vomiting Stop: 08/12/17 10:59 Polyethylene Glycol (Miralax) 17 gm PO BID PRN PRN Reason: Constipation Stop: 08/15/17 10:49 Senna/Docusate Sodium (Senna Plus) 1 each PO BID J[facility] PRN Reason: Protocol Stop: 08/14/17 21:01 Last Admin: 02/16/17 07:33 Dose: 1 each Tamsulosin HCl (Flomax) 0.8 mg PO DAILY [facility] PRN Reason: Protocol Stop: 08/13/17 09:01 Last Admin: 02/16/17 07:34 Dose: 0.8 mg - Imaging and Cardiology Echo: report reviewed Cardiac cath: report reviewed - EKG Interpretation EKG results cardiology: other (24 hour tele AVG HR 121, A-Fib/Flutter) - VTE Documentation of Mechanical Device: Graduated compression elastic hosiery Consult Discharge Plan - Plan Referrals: Chad Srivastava MD [Primary Care Provider] - 02/20/17 1:15 pm (Office will call you if an appointment becomes open at a earlier date)
[2017-02-16] MEDS ORDERED: *HR* Digoxin 0.5 MG/2 ML AMPUL IVP ONE (12:03)
[2017-02-16] MEDS: Furosemide 20 MG/2 ML VIAL IVP SCH ×2 (12:33→17:36)
[2017-02-16] MEDS: *HR* Digoxin 0.5 MG/2 ML AMPUL IVP SCH ×2 (17:36→23:43)
[2017-02-16] MEDS ORDERED: Hydrocortisone Sodium Succ 100 MG/2 ML VIAL IVP SCH (18:00)
[2017-02-17] MEDS: *HR* HYDROcodone/Acet 5/325 mg TABLET PO PRN (03:12)
[2017-02-17 03:28] LABS: Basophils % 0.2 %; Eosinophils % 0.1 %; Hematocrit 45.5 % (37.5-50.1); Hemoglobin 14.5 g/dL (12.9-16.9); Immature Granulocytes % 0.8 % (0-4); Lymphocytes # 0.8 K/mcL (0.6-4.6); Lymphocytes % 5.4 %; Mean Corpuscular HGB Conc 31.9 g/dL (31.6-35.5); Mean Corpuscular Hemoglobin 30.7 pg (28.0-33.3); Mean Corpuscular Volume 96.2 fL (83.0-100.0); Mean Platelet Volume 10.8 fL (9.4-12.4); Monocytes # 1.6 K/mcL (0.0-1.3); Monocytes % 11.1 %; Platelet Count 120 K/mcL (140-400); Red Blood Count 4.73 M/mcL (4.19-5.50); Red Cell Distribution Width 16.2 % (11.5-14.5); Segmented Neutrophils % 82.4 %
[2017-02-17 03:38] LABS: BUN/Creatinine Ratio 34 (6-26); Blood Urea Nitrogen 43 mg/dL (8-26); Carbon Dioxide 33 mEq/L (19-29); Chloride 101 mEq/L (98-109); Glucose 112 mg/dL (70-99); Osmolality,Calculated 308 (280-300); Sodium 143 mEq/L (136-145); eGFR For African Americans > 60 (> 60); eGFR For Non-African Americans 55 (> 60)
[2017-02-17] MEDS: Metoprolol XL (24 HR) Succ 25 MG TAB.ER.24H PO SCH ×2 (07:58→20:48)
[2017-02-17] MEDS: Furosemide 20 MG/2 ML VIAL IVP SCH ×2 (07:58→16:09)
[2017-02-17] MEDS: Aspirin 81 MG TAB.CHEW PO SCH (07:58)
[2017-02-17] MEDS: Sennosides/Docusate Sodium TABLET PO SCH ×2 (07:58→20:47)
[2017-02-17] MEDS: APIXABAN 5 MG TABLET PO SCH ×2 (07:58→20:47)
[2017-02-17] MEDS: Lactulose Oral Soln 20 GM/30 ML UDC PO SCH ×2 (07:59→20:48)
[2017-02-17] MEDS: Amiodarone Premix 360 MG/200 ML BAG IVC SCH (08:12)
[2017-02-17] MEDS ORDERED: Metoprolol XL (24 HR) Succ 25 MG TAB.ER.24H PO SCH (09:00)
--- NOTE | 2017-02-17 09:54 | Cardiology Progress Note ---
Date of Encounter: 02/17/17 Time of Encounter: 09:51 Assessment and Plan (1) Atrial fibrillation with RVR Current Visit: Yes Status: Acute Per Cardiology: He had previously maintained sinus rhythm since AF ablation in 2012 ([place]). Digoxin loaded yesterday and remains on Amiodarone gtt. HR now improving/ responding. 24 hour tele AVG HR 98, A-Fib. HR 80s-low 100s at bedside. SBP has increased to 140s. Will increase Toprol XL to 50mg BID for further HR control. Will switch IV amio to PO 200mg BID until seen for office follow-up. Will also start PO Digoxin tomorrow AM 125mcg QOD (renal dosing). Since HR is now responding and he is better rate controlled, will continue rate control strategy and anticoagulation, possible cardioversion as outpt once pt improves clinically from acute issues. Echo shows severe reduction on RV fxn and EF 15-20%, stable CAD, possible tachycardia induced. Regarding long-term anticoagulation, [id number] score 3, now on Eliquis 5mg PO BID--Eliquis ortega check $48 per month). (2) Cardiomyopathy Current Visit: Yes Status: Chronic Per Cardiology: Patient describes progressive dyspnea since September 2016. Echo July 2014 showed EF preserved at 60%. Current echo shows EF 15-20%, RV size with severe reduction in global function, mild MR, [id number] TR, mild [place]. New severe cardiomyopathy. Known CAD, prior CABG. Known 2/3 patient grafts-- cath showed no significant changes. Suspect tachycardia induced. BNP mildly elevated at 374 on arrival. Continued lower extremity edema. On IV Lasix 20mg BID. Will continue with cautious diuresis. Renal function has mildly worsened from 1.10 yesterday to 1.28 today. Anticipate 1 more day of IV diuresis. Qualifiers: Cardiomyopathy type: unspecified Qualified Code(s): I42.9 - Cardiomyopathy , unspecified (3) CAD (coronary artery disease) Current Visit: Yes Status: Chronic Known CAD, prior CABG. Known 2/3 patient grafts-- cath showed no significant changes. ASA, BB. Hx of statin intolerance. Qualifiers: Coronary Disease-Associated Artery/Lesion type: unspecified vessel or lesion type [place] vs. transplanted heart: [place] heart Associated angina: without angina Qualified Code(s): I25.10 - Atherosclerotic heart disease of [place] coronary artery without angina pectoris Discussion w patient/family: The assessment and plan as outlined above was discussed with the patient and/or family members who expressed understanding and agreement. All questions were answered. Thank you for involving us in the care of your patient. Please call with any questions. I will discuss all the above with Dr. Tafoya and make changes as necessary. Subjective Principal diagnosis: Afib RVR Interval history: Pt reports feeling much better today. HR now better controlled 80s-low 100s A- Fib at bedside. 24 hour tele AVG HR 98, A-Fib. Pt was loaded with digoxin IV yesterday, still on IV amiodarone. Dyspnea is improved. Objective Vital Signs, Last 4 Hours Temp Pulse Resp BP Pulse Ox 02/17/17 08:34 92 18 144/99 95 02/17/17 07:30 97.8 F 96 18 136/90 96 02/17/17 07:00 96 02/17/17 06:25 94 149/113 Vital Signs Temp Pulse Resp BP Pulse Ox 02/17/17 08:34 92 18 144/99 95 02/17/17 07:30 97.8 F 96 18 136/90 96 02/17/17 07:00 96 02/17/17 06:25 94 149/113 02/17/17 05:25 102 133/103 02/17/17 04:25 98 144/109 02/17/17 03:44 97.5 F L 101 16 144/112 96 02/17/17 02:25 93 145/90 02/17/17 01:25 95 135/111 02/17/17 00:25 90 128/92 02/16/17 23:25 105 126/96 02/16/17 23:16 97.9 F 103 20 128/91 96 02/16/17 22:25 97 156/89 02/16/17 21:26 110 118/95 02/16/17 20:25 111 135/88 02/16/17 19:25 107 128/102 02/16/17 19:13 97.3 F L 108 18 148/92 96 02/16/17 16:00 97.4 F L 103 14 133/96 96 02/16/17 15:31 97.4 F L 103 14 133/96 96 02/16/17 11:45 97.4 F L 121 18 114/90 98 02/16/17 11:05 97.4 F L 121 18 114/90 98 02/16/17 11:00 97.8 F 115 14 118/106 97 02/16/17 10:00 97.6 F 121 20 122/101 97 Intake and Output 02/16/17 02/17/17 02/17/17 23:59 07:59 15:59 Intake Total 320 / 320 200 / 200 Output Total 1375 / 1375 425 / 425 Balance -1055 / -1055 -425 / -425 200 / 200 Intake: IV Fluids 200 / 200 200 / 200 Amiodarone Drip Premix 200 / 200 200 / 200 360mg/200mL 360 mg In 200 ml @ 0.5 MG/MIN 16.667 mls/hr IVC CONT JANE Rx#: [id number] Oral 120 / 120 Output: Catheter 1375 / 1375 425 / 425 Other: Meal Vanilla pudding cup Percent of Meal Consumed 100% General: Conversant, No Apparent Distress HEENT: Atraumatic, Normocephaly, Mucus Membranes Moist Neck: No JVD, Normal carotid pulses Cardiac: Other (irregularly irregular) Lungs: Other (diminished) Neuro: Alert and responsive, No focal deficits noted Abdomen: Soft, Non-Tender Skin: No rashes noted on visualized skin Musculoskeletal: No Chest Wall Tenderness Extremities: Other (1+ BLE edema) Results 02/17/17 03:15 02/17/17 03:15 Lab Results 02/17/17 02/17/17 03:15 03:15 WBC 14.6 H Hgb 14.5 Hct 45.5 Plt Count 120 L Sodium 143 Potassium 4.0 Chloride 101 Car bon Dioxide 33 H BUN 43 H Creatinine 1.28 H Glucose 112 H Calcium 8.0 L Active Medications Acetaminophen (Tylenol) 650 mg PO Q6HR PRN PRN Reason: Mild Pain (1-3) Stop: 08/12/17 10:59 Acetaminophen/Hydrocodone Bitart ([place] 5-325 Mg) 1 tab PO Q6HR PRN PRN Reason: moderate leg/back pain Stop: 08/16/17 09:29 Last Admin: 02/17/17 03:12 Dose: 1 tab Apixaban (Eliquis) 5 mg PO BID [facility] Stop: 08/16/17 21:01 Last Admin: 02/17/17 07:58 Dose: 5 mg Aspirin (Aspirin) 81 mg PO DAILY [facility] Stop: 08/13/17 09:01 Last Admin: 02/17/17 07:58 Dose: 81 mg Furosemide (Lasix) 20 mg IVP BIDDIURETIC [facility] Stop: 08/18/17 12:16 Last Admin: 02/17/17 07:58 Dose: 20 mg Amiodarone HCl/Dextrose (Amiodarone Drip Premix 360mg/200ml) 360 mg in 200 mls @ 16.667 mls/hr IVC CONT [facility] PRN Reason: 0.5 MG/MIN Stop: 08/17/17 10:01 Last Admin: 02/17/17 08:12 Dose: 0.5 mg/min, 16.667 mls/hr Lactulose (Lactulose) 10 gm PO BID [facility] Stop: 08/12/17 12:01 Last Admin: 02/17/17 07:59 Dose: 10 gm Magnesium Hydroxide (Milk Of Magnesia Conc) 10 ml PO DAILY PRN PRN Reason: Indigestion Stop: 08/12/17 10:59 Metoprolol Succinate (Toprol Xl) 50 mg PO BID [facility] Stop: 08/19/17 09:01 Naloxone HCl (Narcan) 0.4 mg IVP Q2MIN PRN PRN Reason: Opioid Reversal Stop: 08/12/17 10:59 Ondansetron HCl (Zofran) 4 mg IVP Q8HR PRN PRN Reason: Nausea And Vomiting Stop: 08/12/17 10:59 Polyethylene Glycol (Miralax) 17 gm PO BID PRN PRN Reason: Constipation Stop: 08/15/17 10:49 Senna/Docusate Sodium (Senna Plus) 1 each PO BID [facility] PRN Reason: Protocol Stop: 08/14/17 21:01 Last Admin: 02/17/17 07:58 Dose: 1 each Tamsulosin HCl (Flomax) 0.8 mg PO DAILY [facility] PRN Reason: Protocol Stop: 08/13/17 09:01 Last Admin: 02/17/17 07:58 Dose: 0.8 mg - Imaging and Cardiology Echo: report reviewed Cardiac cath: report reviewed - EKG Interpretation EKG results cardiology: other (24 hour tele AVG HR 98, A-Fib.) - VTE Documentation of Mechanical Device: Graduated compression elastic hosiery Consult Discharge Plan - Plan Referrals: Chad Srivastava MD [Primary Care Provider] - 02/27/17 10:40 am () Buffy Vinson CNP [Partnered Physician] - (office will call with patient at home with a follow up appointment)
--- NOTE | 2017-02-17 09:57 | Event Note ---
Date of Encounter: 02/17/17 Time of Encounter: 09:30 Patient heart rate now controlled on Amiodarone - Cardiology in and cardioversion will be cancelled. Will transition to po Amiodarone. Plan for PT consult and pt may be discharged over the weekend. Planning on [place] for rehab. Advanced directives/DNR completed. Palliative will sign off. Please reconsult if needed.
--- NOTE | 2017-02-17 10:16 | Internal Med Progress Note ---
Date of Encounter: 02/17/17 Time of Encounter: 10:14 - Assessment and plan (1) Atrial fibrillation with RVR Current Visit: Yes Status: Acute Assessment and plan: Rate better controlled s/p LHC with no changes in CAD Amio changed to po, continue same Continue Eliquis 5mg PO BID Continue Digoxin/Toprol continue tele monitoring Cardiology evaluation appreciated (2) Pleural effusion Current Visit: Yes Status: Acute Assessment and plan: Patient was on ceftriaxone empirically for questionable infiltrates in left base , has completed 7 days of therapy Leukocytosis is improving (3) CKD (chronic kidney disease) Current Visit: Yes Status: Chronic Qualifiers: Chronic kidney disease stage: stage 3 (moderate) Qualified Code(s): N18.3 - Chronic kidney disease, stage 3 (moderate) (4) Cardiomyopathy Current Visit: Yes Status: Chronic Assessment and plan: Secondary to CAD management per cardio Qualifiers: Cardiomyopathy type: unspecified Qualified Code(s): I42.9 - Cardiomyopathy , unspecified (5) Dyvyy-of-bfycgqa kidney injury Current Visit: Yes Status: Acute Assessment and plan: Resolved renal function at baseline will continue to monitor (6) CAD (coronary artery disease) Current Visit: Yes Status: Chronic Assessment and plan: Echo July 2014 showed EF preserved at 60%. Current echo shows EF 15-20%, RV size with severe reduction in global function, mild MR, mjpl-jr-chmgrmxk TR, mild [place]. New severe cardiomyopathy. Known CAD, prior CABG. Known 2/3 patient grafts-- cath showed no significant changes. Qualifiers: Coronary Disease-Associated Artery/Lesion type: unspecified vessel or lesion type [place] vs. transplanted heart: [place] heart Associated angina: without angina Qualified Code(s): I25.10 - Atherosclerotic heart disease of [place] coronary artery without angina pectoris (7) CHF (congestive heart failure) Current Visit: Yes Status: Acute Assessment and plan: Echo July 2014 showed EF preserved at 60%. ECHO this admission revealed EF 15-20%, RV size with severe reduction in global function, mild MR, [id number]-tz-[id number] TR, mild [place]. New severe cardiomyopathy. Known CAD, prior CABG. Known 2/3 patient grafts-- cath showed no significant changes. Patient with orthopnea and pedal edema Continue lasix ON troprol,continue same Renal function stable now, continue to monitor Qualifiers: Congestive heart failure type: systolic Congestive heart failure chronicity : acute Qualified Code(s): I50.21 - Acute systolic (congestive) heart failure (8) UTI (urinary tract infection) Current Visit: Yes Status: Suspected Assessment and plan: Suspected, had completed 7 days of ceftriaxone D/ C Levoflox Qualifiers: Urinary tract infection type: site unspecified Hematuria presence: with hematuria Qualified Code(s): N39.0 - Urinary tract infection, site not specified; R31.9 - Hematuria, unspecified - Subjective Interval history: Seen and evaluated at bedside He reports significant improvement, stated he feels better than he has within the past month NO new complains Adequately diuressed Cardiology eval noted, no SHIVAM or cardioversion planned due to improvement in parameters HR and BP has improved Urine cultrue with no growth, edgar discontinue levoflox continue to monitor renal function - Constitutional Vitals: Temp Pulse Resp BP Pulse Ox 97.8 F 92 18 144/99 95 02/17/17 07:30 02/17/17 08:34 02/17/17 08:34 02/17/17 08:34 02/17/17 08:34 General appearance: Present: cooperative, A&O X 3, pleasant, no acute distress, obese, answers questions appropriately - Head Head exam: Present: atraumatic, normocephalic - Eye Eye exam: Present: PERRL, conjuntiva pink, sclera anicteric Pupils: Present: PERRL - Neck Neck exam general surgery: Present: supple, trachea midline. Absent: lymphadenopathy - Respiratory Respiratory exam: Present: CTAB. Absent: accessory muscle use, rales, rhonchi, wheezes - Cardiovascular Cardiovascular exam: Present: RRR, +S1, +S2. Absent: diastolic murmur, gallop, rubs, systolic murmur - GI/Abdominal GI/Abdominal exam: Present: normal bowel sounds, soft, no peritoneal signs. Absent: distended, tenderness - Extremities Exam Extremities exam: Present: pedal edema - Neurological Exam Neurological exam: Present: alert, CN II-XII intact, oriented X3, no focal deficits. Absent: pronater drift, facial droop, speech deficit - Skin Skin exam: Present: dry, intact Internal Medicine: Result - Labs CBC & Chem 7: 02/17/17 03:15 02/17/17 03:15 Labs: Short CBC 02/17/17 Range/Units 03:15 WBC 14.6 H (4.3-11.1) K/mcL Hgb 14.5 (12.9-16.9) g/dL Hct 45.5 (37.5-50.1) % Plt Count 120 L (140-400) K/mcL Neutrophils # 12.0 H (1.6-8.9) K/mcL BMP 02/17/17 03:15 Sodium 143 Potassium 4.0 Chloride 101 Carbon Dioxide 33 H BUN 43 H Creatinine 1.28 H Glucose 112 H Calcium 8.0 L - ABG Interpretation ABG results: PT/INR, D-dimer PT 15.2 Seconds (9.4-12.1) H 02/12/17 12:40 - VTE Documentation of Mechanical Device: Graduated compression elastic hosiery Consult Discharge Plan - Plan Referrals: Chad Srivastava MD [Primary Care Provider] - 02/27/17 10:40 am () Buffy Vinson CNP [Partnered Physician] - (office will call with patient at home with a follow up appointment)
[2017-02-17] MEDS: *HR* Amiodarone 200 MG TABLET PO SCH ×2 (10:29→20:47)
[2017-02-18] MEDS: *HR* HYDROcodone/Acet 5/325 mg TABLET PO PRN (04:18)
[2017-02-18 05:47] LABS: Basophils % 0.2 %; Eosinophils # 0.1 K/mcL (0.0-0.6); Eosinophils % 0.4 %; Hematocrit 48.4 % (37.5-50.1); Hemoglobin 15.5 g/dL (12.9-16.9); Immature Granulocytes % 0.8 % (0-4); Lymphocytes # 0.8 K/mcL (0.6-4.6); Lymphocytes % 5.9 %; Mean Corpuscular Hemoglobin 30.6 pg (28.0-33.3); Mean Corpuscular Volume 95.5 fL (83.0-100.0); Mean Platelet Volume 10.2 fL (9.4-12.4); Monocytes # 1.3 K/mcL (0.0-1.3); Monocytes % 9.7 %; Neutrophils # 11.1 K/mcL (1.6-8.9); Nucleated Red Blood Cells 0.4 /100 WBC (0); Platelet Count 121 K/mcL (140-400); Red Blood Count 5.07 M/mcL (4.19-5.50); Red Cell Distribution Width 16.1 % (11.5-14.5)
[2017-02-18 06:01] LABS: BUN/Creatinine Ratio 37 (6-26); Blood Urea Nitrogen 34 mg/dL (8-26); Calcium 7.9 mg/dL (8.6-10.8); Carbon Dioxide 36 mEq/L (19-29); Chloride 99 mEq/L (98-109); Glucose 105 mg/dL (70-99); Osmolality,Calculated 302 (280-300); Potassium 3.7 mEq/L (3.5-4.5); Sodium 142 mEq/L (136-145); eGFR For African Americans > 60 (> 60); eGFR For Non-African Americans > 60 (> 60)
[2017-02-18] MEDS ORDERED: Hydrocortisone Sodium Succ 100 MG/2 ML VIAL IVP SCH (08:00)
[2017-02-18] MEDS: *HR* Amiodarone 200 MG TABLET PO SCH (08:45)
[2017-02-18] MEDS: Lactulose Oral Soln 20 GM/30 ML UDC PO SCH ×2 (08:46→21:26)
[2017-02-18] MEDS: APIXABAN 5 MG TABLET PO SCH ×2 (08:49→21:27)
[2017-02-18] MEDS: Aspirin 81 MG TAB.CHEW PO SCH (08:50)
[2017-02-18] MEDS: Sennosides/Docusate Sodium TABLET PO SCH ×2 (08:50→21:27)
[2017-02-18] MEDS: *HR* Digoxin 0.125 MG TABLET PO SCH (08:51)
[2017-02-18] MEDS: Metoprolol XL (24 HR) Succ 25 MG TAB.ER.24H PO SCH (08:53)
[2017-02-18] MEDS: Furosemide 20 MG/2 ML VIAL IVP SCH (08:57)
[2017-02-18] MEDS ORDERED: PREDNISONE 10 MG PO SCH (09:00)
[2017-02-18] MEDS ORDERED: Furosemide 20 MG/2 ML VIAL IVP ONE (09:34)
--- NOTE | 2017-02-18 09:36 | Internal Med Progress Note ---
Date of Encounter: 02/18/17 Time of Encounter: 09:35 - Assessment and plan (1) Atrial fibrillation with RVR Current Visit: Yes Status: Acute Assessment and plan: Rate better controlled s/p LHC with no changes in CAD Continue Continue Eliquis 5mg PO BID Continue Digoxin/Toprol Check Mag for dig continue tele monitoring Cardiology evaluation appreciated (2) Pleural effusion Current Visit: Yes Status: Acute Assessment and plan: Patient was on ceftriaxone empirically for questionable infiltrates in left base , has completed 7 days of therapy Leukocytosis is improving (3) CKD (chronic kidney disease) Current Visit: Yes Status: Chronic Assessment and plan: as in [facility] now back to baseline Qualifiers: Chronic kidney disease stage: stage 3 (moderate) Qualified Code(s): N18.3 - Chronic kidney disease, stage 3 (moderate) (4) Cardiomyopathy Current Visit: Yes Status: Chronic Assessment and plan: Secondary to CAD management per cardio Qualifiers: Cardiomyopathy type: unspecified Qualified Code(s): I42.9 - Cardiomyopathy , unspecified (5) Wwweq-vo-njqatjo kidney injury Current Visit: Yes Status: Acute Assessment and plan: Resolved renal function at baseline will continue to monitor (6) CAD (coronary artery disease) Current Visit: Yes Status: Chronic Assessment and plan: Echo July 2014 showed EF preserved at 60%. Current echo shows EF 15-20%, RV size with severe reduction in global function, mild MR, zlmn-ol-bbdxftly TR, mild [place]. New severe cardiomyopathy. Known CAD, prior CABG. Known 2/3 patient grafts-- cath showed no significant changes. Qualifiers: Coronary Disease-Associated Artery/Lesion type: unspecified vessel or lesion type [place] vs. transplanted heart: [place] heart Associated angina: without angina Qualified Code(s): I25.10 - Atherosclerotic heart disease of [place] coronary artery without angina pectoris (7) CHF (congestive heart failure) Current Visit: Yes Status: Acute Assessment and plan: Echo July 2014 showed EF preserved at 60%. ECHO this admission revealed EF 15-20%, RV size with severe reduction in global function, mild MR, rzxf-fw-jqdisizl TR, mild [place]. New severe cardiomyopathy. Known CAD, prior CABG. Known 2/3 patient grafts-- cath showed no significant changes. Patient with orthopnea and pedal edema Continue lasix IV 20mg bid Given additional dose of 20mg this morning ON troprol,continue same Renal function stable now, continue to monitor Qualifiers: Congestive heart failure type: systolic Congestive heart failure chronicity : acute Qualified Code(s): I50.21 - Acute systolic (congestive) heart failure (8) UTI (urinary tract infection) Current Visit: Yes Status: Suspected Assessment and plan: Ruled out, urine culture negative Qualifiers: Urinary tract infection type: site unspecified Hematuria presence: with hematuria Qualified Code(s): N39.0 - Urinary tract infection, site not specified; R31.9 - Hematuria, unspecified - Subjective Interval history: Seen and evaluated at bedside No new complains I/O -~500 - Constitutional Vitals: Temp Pulse Resp BP Pulse Ox 97.9 F 104 10 127/91 96 02/18/17 07:21 02/18/17 07:33 02/18/17 07:21 02/18/17 07:33 02/18/17 07:33 General appearance: Present: cooperative, A&O X 3, pleasant, no acute distress, obese, answers questions appropriately - Head Head exam: Present: atraumatic, normocephalic - Eye Eye exam: Present: PERRL, conjuntiva pink, sclera anicteric Pupils: Present: PERRL - Neck Neck exam general surgery: Present: supple, trachea midline. Absent: lymphadenopathy - Respiratory Respiratory exam: Present: CTAB. Absent: accessory muscle use, rales, rhonchi, wheezes - Cardiovascular Cardiovascular exam: Present: irregular rhythm, +S1, +S2, tachycardia. Absent: diastolic murmur, gallop, rubs, systolic murmur - GI/Abdominal GI/Abdominal exam: Present: normal bowel sounds, soft, no peritoneal signs. Absent: distended, tenderness - Extremities Exam Extremities exam: Present: pedal edema (2+ pitting pedal edema), warm, radial pulses palpable and symetrical. Absent: calf tenderness, cyanotic - Neurological Exam Neurological exam: Present: alert, CN II-XII intact, oriented X3, no focal deficits. Absent: pronater drift, facial droop, speech deficit - Skin Skin exam: Present: dry, intact Internal Medicine: Result - Labs CBC & Chem 7: 02/18/17 05:30 02/18/17 05:30 Labs: Short CBC 02/18/17 Range/Units 05:30 WBC 13.3 H (4.3-11.1) K/mcL Hgb 15.5 (12.9-16.9) g/dL Hct 48.4 (37.5-50.1) % Plt Count 121 L (140-400) K/mcL Neutrophils # 11.1 H (1.6-8.9) K/mcL BMP 02/18/17 05:30 Sodium 142 Potassium 3.7 Chloride 99 Carbon Dioxide 36 H BUN 34 H Creatinine 0.92 Glucose 105 H Calcium 7.9 L - ABG Interpretation ABG results: PT/INR, D-dimer PT 15.2 Seconds (9.4-12.1) H 02/12/17 12:40 - VTE Documentation of Mechanical Device: Graduated compression elastic hosiery Consult Discharge Plan - Plan Referrals: Chad Srivastava MD [Primary Care Provider] - 02/27/17 10:40 am () Buffy Vinson CNP [Partnered Physician] - (office will call with patient at home with a follow up appointment)
[2017-02-18] MEDS ORDERED: Metoprolol XL (24 HR) Succ 25 MG TAB.ER.24H PO ONE (10:14)
--- NOTE | 2017-02-18 10:17 | Cardiology Progress Note ---
Date of Encounter: 02/18/17 Time of Encounter: 10:15 Assessment and Plan (1) Atrial fibrillation with RVR Current Visit: Yes Status: Acute Per Cardiology: He had previously maintained sinus rhythm since AF ablation in 2012 ([place]). Pt has been loaded with IV digoxin and IV amio, now on PO of both--Amio PO 200mg BID and PO Digoxin 125mcg QOD (renally dosed). Toprol XL was increased to 50mg BID yesterday. BP has tolerated well. 12 hour tele AVG HR 102, currently 110s at bedside. Will increase Toprol XL to 75mg BID. Since HR is now responding and he is better rate controlled, will continue rate control strategy and anticoagulation, possible cardioversion as outpt once pt improves clinically from acute issues. Echo shows severe reduction on RV fxn and EF 15-20%, stable CAD, possible tachycardia induced. Regarding long-term anticoagulation, [id number] score 3, now on Eliquis 5mg PO BID--Eliquis ortega check $48 per month). Will re-evaluate HR later today and if adequately rate controlled will sign off with outpt follow-up. (2) Cardiomyopathy Current Visit: Yes Status: Chronic Per Cardiology: Echo July 2014 showed EF preserved at 60%. Current echo shows EF 15-20%, RV size with severe reduction in global function, mild MR, vads-da-aenforym TR, mild [place]. New severe cardiomyopathy. Known CAD, prior CABG. Known 2/3 patient grafts-- cath showed no significant changes. Suspect tachycardia induced. Lower extremity edema much improved as well as dyspnea. Net negative -539.8mL. Will transition IV lasix to maintenance PO. Renal function improved. Qualifiers: Cardiomyopathy type: unspecified Qualified Code(s): I42.9 - Cardiomyopathy , unspecified (3) CAD (coronary artery disease) Current Visit: Yes Status: Chronic Known CAD, prior CABG. Known 2/3 patient grafts-- cath showed no significant changes. ASA, BB. Hx of statin intolerance. Qualifiers: Coronary Disease-Associated Artery/Lesion type: unspecified vessel or lesion type [place] vs. transplanted heart: [place] heart Associated angina: without angina Qualified Code(s): I25.10 - Atherosclerotic heart disease of [place] coronary artery without angina pectoris Discussion w patient/family: The assessment and plan as outlined above was discussed with the patient and/or family members who expressed understanding and agreement. All questions were answered. Thank you for involving us in the care of your patient. Please call with any questions. I will discuss all the above with Dr. Tafoya and make changes as necessary. Subjective Principal diagnosis: Afib RVR Interval history: Pt reports feeling much better today. 12 hour tele AVG HR 102, A-Fib. Dyspnea has improved, as well as lower extremity edema. Pt denies chest pain or palpitations. Cumulative I/O now net negative 539.8mL. Renal function improved today, creatinine 0.92. HR currently 110s at bedside, has just received meds. Objective Vital Signs, Last 4 Hours Temp Pulse Resp BP Pulse Ox 02/18/17 09:39 97.7 F 20 02/18/17 07:33 104 127/91 96 02/18/17 07:21 97.9 F 88 10 127/91 96 Vital Signs Temp Pulse Resp BP Pulse Ox 02/18/17 09:39 97.7 F 20 02/18/17 07:33 104 127/91 96 02/18/17 07:21 97.9 F 88 10 127/91 96 02/18/17 04:30 111 02/18/17 03:45 97.4 F L 92 18 125/100 94 02/17/17 23:30 88 02/17/17 23:18 97.7 F 97 16 130/101 96 02/17/17 20:30 102 02/17/17 20:18 97.8 F 86 18 121/86 95 02/17/17 17:34 95 16 95 02/17/17 15:20 97.8 F 103 18 131/76 95 02/17/17 15:00 95 02/17/17 13:07 96 02/17/17 13:05 90 16 124/76 95 02/17/17 13:00 90 16 124/76 95 02/17/17 11:17 97.5 F L 75 18 148/107 96 02/17/17 11:09 100 18 148/107 94 02/17/17 11:00 90 02/17/17 10:30 17 154/109 95 Intake and Output 02/17/17 02/18/17 02/18/17 23:59 07:59 15:59 Intake Total 1160 / 1160 0 / 0 495 / 495 Output Total 650 / 650 1000 / 1000 Balance 510 / 510 -1000 / -1000 495 / 495 Intake: Oral 1160 / 1160 0 / 0 480 / 480 Other Output: Catheter 650 / 650 1000 / 1000 Other: Meal Dinner Breakfast Percent of Meal Consumed 100% 100% Weight 97.2 kg Patient Weight 02/18/17 23:59 Weight 97.2 kg General: Conversant, No Apparent Distress HEENT: Atraumatic, Normocephaly, Mucus Membranes Moist Neck: No JVD, Normal carotid pulses Cardiac: Other (irregularly irregular) Lungs: Normal Breath Sounds, No Wheeze, Rales, Rhonchi Neuro: Alert and responsive, No focal deficits noted Abdomen: Soft, Non-Tender Skin: No rashes noted on visualized skin Musculoskeletal: No Chest Wall Tenderness Extremities: No Clubbing, No Cyanosis, No Edema, Normal Pulses Results 02/18/17 05:30 02/18/17 05:30 Lab Results 02/18/17 02/18/17 05:30 05:30 WBC 13.3 H Hgb 15.5 Hct 48.4 Plt Count 121 L Sodium 142 Potassium 3.7 Chloride 99 Carbon Dioxide 36 H BUN 34 H Creatinine 0.92 Glucose 105 H Calcium 7.9 L Short CBC 02/18/17 Range/Units 05:30 WBC 13.3 H (4.3-11.1) K/mcL Hgb 15.5 (12.9-16.9) g/dL Hct 48.4 (37.5-50.1) % Plt Count 121 L (140-400) K/mcL Neutrophils # 11.1 H (1.6-8.9) K/mcL BMP 02/18/17 Range/Units 05:30 Sodium 142 (136-145) mEq/L Potassium 3.7 (3.5-4.5) mEq/L Chloride 99 (98-109) mEq/L Carbon Dioxide 36 H (19-29) mEq/L BUN 34 H (8-26) mg/dL Creatinine 0.92 (0.72-1.25) mg/dL Glucose 105 H (70-99) mg/dL Calcium 7.9 L (8.6-10.8) mg/dL Active Medications Acetaminophen (Tylenol) 650 mg PO Q6HR PRN PRN Reason: Mild Pain (1-3) Stop: 08/12/17 10:59 Acetaminophen/Hydrocodone Bitart ([place] 5-325 Mg) 1 tab PO Q6HR PRN PRN Reason: moderate leg/back pain Stop: 08/16/17 09:29 Last Admin: 02/18/17 04:18 Dose: 1 tab Amiodarone HCl (Cordarone) 200 mg PO BID [facility] Stop: 08/19/17 10:16 Last Admin: 02/18/17 08:45 Dose: 200 mg Apixaban (Eliquis) 5 mg PO BID [facility] Stop: 08/16/17 21:01 Last Admin: 02/18/17 08:49 Dose: 5 mg Aspirin (Aspirin) 81 mg PO DAILY [facility] Stop: 08/13/17 09:01 Last Admin: 02/18/17 08:50 Dose: 81 mg Digoxin (Lanoxin) 0.125 mg PO QOD [facility] Stop: 08/20/17 09:01 Last Admin: 02/18/17 08:51 Dose: 0.125 mg Furosemide (Lasix) 20 mg IVP BIDDIURETIC [facility] Stop: 08/18/17 12:16 Last Admin: 02/18/17 08:57 Dose: 20 mg Lactulose (Lactulose) 10 gm PO BID [facility] Stop: 08/12/17 12:01 Last Admin: 02/18/17 08:46 Dose: 10 gm Magnesium Hydroxide (Milk Of Magnesia Conc) 10 ml PO DAILY PRN PRN Reason: Indigestion Stop: 08/12/17 10:59 Metoprolol Succinate (Toprol Xl) 25 mg PO ONCE ONE Stop: 02/18/17 10:15 Metoprolol Succinate (Toprol Xl) 75 mg PO BID [facility] Stop: 08/20/17 21:01 Naloxone HCl (Narcan) 0.4 mg IVP Q2MIN PRN PRN Reason: Opioid Reversal Stop: 08/12/17 10:59 Ondansetron HCl (Zofran) 4 mg IVP Q8HR PRN PRN Reason: Nausea And Vomiting Stop: 08/12/17 10:59 Polyethylene Glycol (Miralax) 17 gm PO BID PRN PRN Reason: Constipation Stop: 08/15/17 10:49 Senna/Docusate Sodium (Senna Plus) 1 each PO BID [facility] PRN Reason: Protocol Stop: 08/14/17 21:01 Last Admin: 02/18/17 08:50 Dose: 1 each Tamsulosin HCl (Flomax) 0.8 mg PO DAILY JANE PRN Reason: Protocol Stop: 08/13/17 09:01 Last Admin: 02/18/17 08:51 Dose: 0.8 mg - Imaging and Cardiology Echo: report reviewed Cardiac cath: report reviewed - EKG Interpretation EKG results cardiology: other (12 hour tele AVG HR 102, A-Fib.) - VTE Documentation of Mechanical Device: Graduated compression elastic hosiery Consult Discharge Plan - Plan Referrals: Chad Srviastava MD [Primary Care Provider] - 02/27/17 10:40 am () Buffy Vinson CNP [Partnered Physician] - (office will call with patient at home with a follow up appointment)
[2017-02-18] MEDS ORDERED: Levofloxacin 750 MG/150 ML 750 MG/150 ML BAG IVPB SCH (14:00)
[2017-02-18] MEDS ORDERED: Amiodarone Premix 360 MG/200 ML BAG IVC ONE (17:26)
[2017-02-18] MEDS ORDERED: Metoprolol XL (24 HR) Succ 25 MG TAB.ER.24H PO SCH (21:00)
[2017-02-18] MEDS: Acetaminophen 325 MG TABLET PO PRN (21:27)
[2017-02-19] MEDS ORDERED: Amiodarone Premix 360 MG/200 ML BAG IVC SCH
[2017-02-19 04:51] LABS: Basophils % 0.1 %; Eosinophils # 0.1 K/mcL (0.0-0.6); Hematocrit 47.4 % (37.5-50.1); Hemoglobin 15.6 g/dL (12.9-16.9); Immature Granulocytes % 0.5 % (0-4); Lymphocytes # 1.1 K/mcL (0.6-4.6); Lymphocytes % 8.3 %; Mean Corpuscular HGB Conc 32.9 g/dL (31.6-35.5); Mean Corpuscular Hemoglobin 31.3 pg (28.0-33.3); Mean Platelet Volume 10.7 fL (9.4-12.4); Monocytes # 1.4 K/mcL (0.0-1.3); Monocytes % 10.5 %; Neutrophils # 10.3 K/mcL (1.6-8.9); Nucleated Red Blood Cells 0.3 /100 WBC (0); Platelet Count 123 K/mcL (140-400); Red Blood Count 4.99 M/mcL (4.19-5.50); Red Cell Distribution Width 16.2 % (11.5-14.5); Segmented Neutrophils % 79.6 %
[2017-02-19 05:07] LABS: BUN/Creatinine Ratio 30 (6-26); Blood Urea Nitrogen 31 mg/dL (8-26); Calcium 8.2 mg/dL (8.6-10.8); Carbon Dioxide 37 mEq/L (19-29); Chloride 98 mEq/L (98-109); Glucose 112 mg/dL (70-99); Osmolality,Calculated 301 (280-300); Sodium 142 mEq/L (136-145); eGFR For African Americans > 60 (> 60); eGFR For Non-African Americans > 60 (> 60)
[2017-02-19 05:26] LABS: Potassium 3.6 mEq/L (3.5-4.5)
--- NOTE | 2017-02-19 10:03 | Cardiology Progress Note ---
Date of Encounter: 02/19/17 Time of Encounter: 10:00 Assessment and Plan (1) Atrial fibrillation with RVR Current Visit: Yes Status: Acute Per Cardiology: He had previously maintained sinus rhythm since AF ablation in 2012 ([place]). Pt has been loaded with IV digoxin and IV amio, now on PO of both--Amio PO 200mg BID and PO Digoxin 125mcg QOD (renally dosed). Toprol XL was increased to 75mg BID yesterday. BP has tolerated well. 12 hour tele AVG HR 103, currently 130s at bedside, difficult to rate control. Will increase Toprol XL to 100mg BID. Pt is continuing to be tachycardic, difficult to rate control despite being on Amio, Digoxin and BB. Will reload with IV amiodarone. Plan for SHIVAM/DCCV in AM. Regarding long-term anticoagulation, [id number] score 3, now on Eliquis 5mg PO BID--Eliquis ortega check $48 per month). (2) Cardiomyopathy Current Visit: Yes Status: Chronic Per Cardiology: Echo July 2014 showed EF preserved at 60%. Current echo shows EF 15-20%, RV size with severe reduction in global function, mild MR, ceis-zk-subdjfjb TR, mild [place]. New severe cardiomyopathy. Known CAD, prior CABG. Known 2/3 patient grafts-- cath showed no significant changes. Suspect tachycardia induced. Lower extremity edema much improved as well as dyspnea. Net negative -1145mL. On PO Lasix, renal function stable. Qualifiers: Cardiomyopathy type: unspecified Qualified Code(s): I42.9 - Cardiomyopathy , unspecified (3) CAD (coronary artery disease) Current Visit: Yes Status: Chronic Known CAD, prior CABG. Known 2/3 patient grafts-- cath showed no significant changes. ASA, BB. Hx of statin intolerance. Qualifiers: Coronary Disease-Associated Artery/Lesion type: unspecified vessel or lesion type [place] vs. transplanted heart: [place] heart Associated angina: without angina Qualified Code(s): I25.10 - Atherosclerotic heart disease of [place] coronary artery without angina pectoris (4) Pain of right lower extremity Current Visit: Yes Status: Acute Report right lower extremity pain. Hx of femoral stents. Will order JAVI to further evaluate and discuss with vascular. Follows with vascular as outpt. Discussion w patient/family: The assessment and plan as outlined above was discussed with the patient and/or family members who expressed understanding and agreement. All questions were answered. Thank you for involving us in the care of your patient. Please call with any questions. I will discuss all the above with Dr. Tafoya and make changes as necessary. Subjective Principal diagnosis: Afib RVR Interval history: Pt reports feeling okay 12 hour tele AVG HR 103, A-Fib. Dyspnea has improved, as well as lower extremity edema. Pt denies chest pain or palpitations. Cumulative I/O now net negative -1145mL. HR currently 130s at bedside. Pt does report right lower extremity pain. Objective Vital Signs, Last 4 Hours Temp Pulse Resp BP Pulse Ox 02/19/17 08:18 98.1 F 02/19/17 07:58 107 16 124/97 93 Vital Signs Temp Pulse Resp BP Pulse Ox 02/19/17 08:18 98.1 F 02/19/17 07:58 107 16 124/97 93 02/19/17 04:40 94 02/19/17 04:01 97.4 F L 104 17 133/105 96 02/18/17 23:45 94 02/18/17 23:29 97.7 F 82 17 127/94 96 02/18/17 20:48 97.9 F 118 19 120/102 94 02/18/17 19:40 94 02/18/17 19:00 109 130/94 02/18/17 18:45 97 115/86 93 02/18/17 18:30 97 116/79 92 02/18/17 18:15 107 120/88 94 02/18/17 18:00 111 113/84 02/18/17 17:50 91 129/94 02/18/17 17:45 106 120/93 02/18/17 16:00 121 17 97 02/18/17 13:55 54 18 99 02/18/17 12:15 107 20 122/95 93 02/18/17 12:02 97.9 F 106 14 122/95 94 Intake and Output 02/18/17 02/19/17 02/19/17 23:59 07:59 15:59 Intake Total 840 / 840 100 / 100 240 / 240 Output Total 470 / 470 200 / 200 Balance 370 / 370 -100 / -100 240 / 240 Intake: IV Fluids 200 / 200 Amiodarone Drip Premix 200 / 200 360mg/200mL 360 mg In 200 ml @ 1 MG/MIN 33.333 mls /hr IVC ONCE ONE Rx#: [id number] Oral 640 / 640 100 / 100 240 / 240 Output: Catheter 470 / 470 200 / 200 Other: Meal Dinner Breakfast Percent of Meal Consumed 100% 100% Stool Size Moderate Stool Consistency formed Weight 96 kg Patient Weight 02/19/17 23:59 Weight 96 kg General: Conversant, No Apparent Distress HEENT: Atraumatic, Normocephaly, Mucus Membranes Moist Neck: No JVD, Normal carotid pulses Cardiac: Other (irregularly irregular) Lungs: Normal Breath Sounds, No Wheeze, Rales, Rhonchi Neuro: Alert and responsive, No focal deficits noted Abdomen: Soft, Non-Tender Skin: No rashes noted on visualized skin Musculoskeletal: No Chest Wall Tenderness Extremities: No Clubbing, No Cyanosis, No Edema, Normal Pulses Results 02/19/17 04:40 02/19/17 04:40 Lab Results 02/19/17 02/19/17 04:40 04:40 WBC 12.9 H Hgb 15.6 Hct 47.4 Plt Count 123 L Sodium 142 Potassium 3.6 Chloride 98 Carbon Dioxide 37 H BUN 31 H Creatinine 1.05 Glucose 112 H Calcium 8.2 L Short CBC 02/19/17 Range/Units 04:40 WBC 12.9 H (4.3-11.1) K/mcL Hgb 15.6 (12.9-16.9) g/dL Hct 47.4 (37.5-50.1) % Plt Count 123 L (140-400) K/mcL Neutrophils # 10.3 H (1.6-8.9) K/mcL BMP 02/19/17 Range/Units 04:40 Sodium 142 (136-145) mEq/L Potassium 3.6 (3.5-4.5) mEq/L Chloride 98 (98-109) mEq/L Carbon Dioxide 37 H (19-29) mEq/L BUN 31 H (8-26) mg/dL Creatinine 1.05 (0.72-1.25) mg/dL Glucose 112 H (70-99) mg/dL Calcium 8.2 L (8.6-10.8) mg/dL Active Medications Acetaminophen (Tylenol) 650 mg PO Q6HR PRN PRN Reason: Mild Pain (1-3) Stop: 08/12/17 10:59 Last Admin: 02/18/17 21:27 Dose: 650 mg Acetaminophen/Hydrocodone Bitart ([place] 5-325 Mg) 1 tab PO Q6HR PRN PRN Reason: moderate leg/back pain Stop: 08/16/17 09:29 Last Admin: 02/18/17 04:18 Dose: 1 tab Apixaban (Eliquis) 5 mg PO BID [facility] Stop: 08/16/17 21:01 Last Admin: 02/18/17 21:27 Dose: 5 mg Aspirin (Aspirin) 81 mg PO DAILY [facility] Stop: 08/13/17 09:01 Last Admin: 02/18/17 08:50 Dose: 81 mg Digoxin (Lanoxin) 0.125 mg PO QOD [facility] Stop: 08/20/17 09:01 Last Admin: 02/18/17 08:51 Dose: 0.125 mg Furosemide (Lasix) 40 mg PO DAILY [facility] Stop: 08/21/17 09:01 Amiodarone HCl/Dextrose (Amiodarone Drip Premix 360mg/200ml) 360 mg in 200 mls @ 16.667 mls/hr IVC CONT JANE PRN Reason: 0.5 MG/MIN Stop: 08/21/17 00:01 Last Admin: 02/18/17 23:44 Dose: 0.5 mg/min, 16.667 mls/hr Lactulose (Lactulose) 10 gm PO BID [facility] Stop: 08/12/17 12:01 Last Admin: 02/18/17 21:26 Dose: 10 gm Magnesium Hydroxide (Milk Of Magnesia Conc) 10 ml PO DAILY PRN PRN Reason: Indigestion Stop: 08/12/17 10:59 Metoprolol Succinate (Toprol Xl) 100 mg PO BID [facility] Stop: 08/21/17 09:01 Naloxone HCl (Narcan) 0.4 mg IVP Q2MIN PRN PRN Reason: Opioid Reversal Stop: 08/12/17 10:59 Ondansetron HCl (Zofran) 4 mg IVP Q8HR PRN PRN Reason: Nausea And Vomiting Stop: 08/12/17 10:59 Polyethylene Glycol (Miralax) 17 gm PO BID PRN PRN Reason: Constipation Stop: 08/15/17 10:49 Senna/Docusate Sodium (Senna Plus) 1 each PO BID JANE PRN Reason: Protocol Stop: 08/14/17 21:01 Last Admin: 02/18/17 21:27 Dose: 1 each Tamsulosin HCl (Flomax) 0.8 mg PO DAILY JANE PRN Reason: Protocol Stop: 08/13/17 09:01 Last Admin: 02/18/17 08:51 Dose: 0.8 mg - Imaging and Cardiology Echo: report reviewed Cardiac cath: report reviewed - EKG Interpretation EKG results cardiology: other (12 hour tele AVG HR 103, A-Fib.) - VTE Documentation of Mechanical Device: Graduated compression elastic hosiery Consult Discharge Plan - Plan Referrals: Chad Srivastava MD [Primary Care Provider] - 02/27/17 10:40 am () Buffy Vinson CNP [Partnered Physician] - (office will call with patient at home with a follow up appointment)
--- NOTE | 2017-02-19 10:18 | Internal Med Progress Note ---
Date of Encounter: 02/19/17 Time of Encounter: 10:16 - Assessment and plan (1) Atrial fibrillation with RVR Current Visit: Yes Status: Acute Assessment and plan: Rate better controlled s/p LHC with no changes in CAD Continue Eliquis 5mg PO BID Restarted on amiodarone drip overnight, cardiology following, continue Continue Digoxin/Toprol continue tele monitoring Cardiology evaluation appreciated (2) Pleural effusion Current Visit: Yes Status: Acute Assessment and plan: Patient was on ceftriaxone empirically for questionable infiltrates in left base , has completed 7 days of therapy Leukocytosis is improving (3) CKD (chronic kidney disease) Current Visit: Yes Status: Chronic Assessment and plan: as in [facility] now back to baseline Qualifiers: Chronic kidney disease stage: stage 3 (moderate) Qualified Code(s): N18.3 - Chronic kidney disease, stage 3 (moderate) (4) Cardiomyopathy Current Visit: Yes Status: Chronic Assessment and plan: Secondary to CAD management per cardio Continue lasix Qualifiers: Cardiomyopathy type: unspecified Qualified Code(s): I42.9 - Cardiomyopathy , unspecified (5) Gbmvv-ee-aljshdu kidney injury Current Visit: Yes Status: Acute Assessment and plan: Resolved renal function at baseline will continue to monitor (6) CAD (coronary artery disease) Current Visit: Yes Status: Chronic Assessment and plan: Echo July 2014 showed EF preserved at 60%. Current echo shows EF 15-20%, RV size with severe reduction in global function, mild MR, ekwa-sc-xwfyedan TR, mild NC. New severe cardiomyopathy. Known CAD, prior CABG. Known 2/3 patient grafts-- In this admission, cath showed no significant changes. Qualifiers: Coronary Disease-Associated Artery/Lesion type: unspecified vessel or lesion type [place] vs. transplanted heart: [place] heart Associated angina: without angina Qualified Code(s): I25.10 - Atherosclerotic heart disease of [place] coronary artery without angina pectoris (7) CHF (congestive heart failure) Current Visit: Yes Status: Acute Assessment and plan: Echo July 2014 showed EF preserved at 60%. ECHO this admission revealed EF 15-20%, RV size with severe reduction in global function, mild MR, dedb-sh-tnyybcsd TR, mild NC. New severe cardiomyopathy. Known CAD, prior CABG. Known 2/3 patient grafts-- cath showed no significant changes. Continue diuresis/BB Renal function stable now, continue to monitor Qualifiers: Congestive heart failure type: systolic Congestive heart failure chronicity : acute Qualified Code(s): I50.21 - Acute systolic (congestive) heart failure (8) UTI (urinary tract infection) Current Visit: Yes Status: Suspected Assessment and plan: Ruled out, urine culture negative Qualifiers: Urinary tract infection type: site unspecified Hematuria presence: with hematuria Qualified Code(s): N39.0 - Urinary tract infection, site not specified; R31.9 - Hematuria, unspecified - Subjective Interval history: Seen and evaluated at bedside I/O -1.3L HR again uncontrolled, required restarting amiodarone drip overnight Patient is being planed for cardioversion a.m He complains of R leg swelling and feeling of numbness, states that this has been happening , his R groin was access for his LHC , RLE well perfused, no cyanosis, dorsalis pedis present by doppler His pedal edema/sacral edema looks slightly more today than yesterday JAVI has been ordered, will follow His renal function continues to improve with slight metabolic alkalosis . leukocytosis is improving - Constitutional Vitals: Temp Pulse Resp BP Pulse Ox 98.1 F 107 16 124/97 93 02/19/17 08:18 02/19/17 07:58 02/19/17 07:58 02/19/17 07:58 02/19/17 07:58 General appearance: Present: cooperative, A&O X 3, pleasant, no acute distress, obese, answers questions appropriately - Head Head exam: Present: atraumatic, normocephalic - Eye Eye exam: Present: PERRL, conjuntiva pink, sclera anicteric Pupils: Present: PERRL - Neck Neck exam general surgery: Present: supple, trachea midline. Absent: lymphadenopathy - Respiratory Respiratory exam: Present: CTAB. Absent: accessory muscle use, rales, rhonchi, wheezes - Cardiovascular Cardiovascular exam: Present: irregular rhythm, +S1, +S2, tachycardia. Absent: diastolic murmur, gallop, rubs, systolic murmur - GI/Abdominal GI/Abdominal exam: Present: normal bowel sounds, soft, no peritoneal signs. Absent: distended, tenderness - Extremities Exam Extremities exam: Present: pedal edema, warm, radial pulses palpable and symetrical. Absent: calf tenderness, cyanotic - Neurological Exam Neurological exam: Present: alert, CN II-XII intact, oriented X3, no focal deficits. Absent: pronater drift, facial droop, speech deficit - Skin Skin exam: Present: dry, intact Internal Medicine: Result - Labs CBC & Chem 7: 02/19/17 04:40 02/19/17 04:40 Labs: Short CBC 02/19/17 Range/Units 04:40 WBC 12.9 H (4.3-11.1) K/mcL Hgb 15.6 (12.9-16.9) g/dL Hct 47.4 (37.5-50.1) % Plt Count 123 L (140-400) K/mcL Neutrophils # 10.3 H (1.6-8.9) K/mcL BMP 02/19/17 04:40 Sodium 142 Potassium 3.6 Chloride 98 Carbon Dioxide 37 H BUN 31 H Creatinine 1.05 Glucose 112 H Calcium 8.2 L - ABG Interpretation ABG results: PT/INR, D-dimer PT 15.2 Seconds (9.4-12.1) H 02/12/17 12:40 - VTE Documentation of Mechanical Device: Graduated compression elastic hosiery Consult Discharge Plan - Plan Referrals: Chad Srivastava MD [Primary Care Provider] - 02/27/17 10:40 am () Buffy Vinson CNP [Partnered Physician] - (office will call with patient at home with a follow up appointment)
[2017-02-19] MEDS: Lactulose Oral Soln 20 GM/30 ML UDC PO SCH ×2 (10:33→20:18)
[2017-02-19] MEDS: Metoprolol XL (24 HR) Succ 50 MG TAB.ER.24H PO SCH ×2 (10:33→20:17)
[2017-02-19] MEDS: Furosemide 40 MG TABLET PO SCH (10:33)
[2017-02-19] MEDS: Sennosides/Docusate Sodium TABLET PO SCH ×2 (10:33→20:18)
[2017-02-19] MEDS: APIXABAN 5 MG TABLET PO SCH ×2 (10:34→20:17)
[2017-02-19] MEDS: Aspirin 81 MG TAB.CHEW PO SCH (10:34)
[2017-02-19] MEDS ORDERED: 0.9 % Sodium Chloride 250 ML ONE (11:21)
[2017-02-19] MEDS: Amiodarone Premix 360 MG/200 ML BAG IVC SCH ×2 (11:44→22:10)
--- NOTE | 2017-02-19 14:45 | Arterial Study Report ---
LE Arterial Physiologic Study Patient Name:Tee Chavez Order Number:[id number] Procedure Date:02/19/2017 Date:1945ge:72 yrs Gender:Male Lt BP:128 / mmHg Rt.BP:122 / mmHgHeart Rate: Location:[facility] Room #: 2N04 Dyer And Washer:Ruma Velásquez RDCS Referring MD:Osman Landeros UNDERCOVER COP development technologist:Chad Srivastava MD Reading MD:Greyson Garrett MD Primary Indications:Pain Risk Factors Yes/No Hypertension Yes Smoker Previous Yes Hx of CAD/PTCA Yes Previous Vascular Surgery Yes Impressions: 1) Right lower extremity waveform demonstrates mildly diminished hemodynamics. 2) Right Ankle Brachial Index demonstrates mildly occlusive disease. 1) Left lower extremity waveform demonstrates normal hemodynamics. 2) Left Ankle Brachial Index is normal. Recommendations: Preliminary noted in pt EMR. Findings LE Arterial Physiologic Exam: PVR: Right: The PVR waveforms are mildly diminished in the right ankle. Left: The PVR waveforms are normal in the left ankle. Prior Study: No significant change compared to prior study dated: 12/28/2015. Segmental Pressures Side Location Pressure Index Result Right Posterior Tibial 116 0.91 Mildly Diminished Right Dorsalis Pedis 100 0.78 Mildly Diminished Left Posterior Tibial 169 1.32 Normal Left Dorsalis Pedis 155 1.21 Mildly Diminished Ankle Brachial Index Right Systolic Diastolic JAVI Brachial 122 0.91 Dorsalis Pedis 100 0.78 Posterior Tibial 116 0.91 Left Systolic Diastolic JAVI Brachial 128 1.32 Dorsalis Pedis 155 1.21 Posterior Tibial 169 1.32 Updated by Greyson Garrett MD on 02/19/2017 2:39:26 PM with Status of Final electronically signed on 02/19/2017 2:40:01 PM with status of Final
[2017-02-19] MEDS: Acetaminophen 325 MG TABLET PO PRN (22:09)
[2017-02-20] MEDS: APIXABAN 5 MG TABLET PO SCH ×2 (08:38→20:20)
[2017-02-20] MEDS: Aspirin 81 MG TAB.CHEW PO SCH (08:38)
[2017-02-20] MEDS: Lactulose Oral Soln 20 GM/30 ML UDC PO SCH ×2 (08:38→20:20)
[2017-02-20] MEDS: Furosemide 40 MG TABLET PO SCH (08:39)
[2017-02-20] MEDS: *HR* Digoxin 0.125 MG TABLET PO SCH (08:39)
[2017-02-20] MEDS: Metoprolol XL (24 HR) Succ 50 MG TAB.ER.24H PO SCH ×2 (08:40→20:19)
[2017-02-20] MEDS: Sennosides/Docusate Sodium TABLET PO SCH ×2 (08:40→20:20)
--- NOTE | 2017-02-20 09:21 | Event Note ---
Date of Encounter: 02/20/17 Time of Encounter: 09:18 - Cardiology Event Note HR still uncontrolled--24 hour tele AVG HR 109, A-Fib. Plan for SHIVAM/DCCV today. R/B/A discussed. Pt agrees to proceed. Dr. Briceno consulted for Right LE pain with hx of PAD s/p femoral stenting. Past [facility] films show what appears to be significant stenosis at common femoral access site. Continue to follow.
[2017-02-20] MEDS ORDERED: 0.9 % Sodium Chloride 250 ML ONE (09:57)
[2017-02-20] MEDS: Amiodarone Premix 360 MG/200 ML BAG IVC SCH (09:58)
[2017-02-20] MEDS ORDERED: Tetracaine/Benzocaine/Butamben 200MG/SPRAY (100SPY/BOT) MM ONE (10:14)
[2017-02-20] MEDS ORDERED: 0.9 % Sodium Chloride 500 ML IVC ONE (10:14)
[2017-02-20] MEDS: *HR* Midazolam HCl 5 MG/5 ML VIAL IVP PRN ×2 (11:35→11:56)
[2017-02-20] MEDS: *HR* FentaNYL (PF) 100 MCG/2 ML VIAL IVP PRN ×2 (11:35→11:56)
--- NOTE | 2017-02-20 14:11 | Internal Med Progress Note ---
Date of Encounter: 02/20/17 Time of Encounter: 14:08 - Assessment and plan (1) Atrial fibrillation with RVR Current Visit: Yes Status: Acute Assessment and plan: s/p SHIVAM and Cardioversion this a.m s/p [facility] with no changes in CAD Continue Eliquis 5mg PO BID Continue Digoxin/Toprol for now continue tele monitoring (2) Pleural effusion Current Visit: Yes Status: Acute Assessment and plan: Patient was on ceftriaxone empirically for questionable infiltrates in left base , has completed 7 days of therapy Leukocytosis is improving (3) CKD (chronic kidney disease) Current Visit: Yes Status: Chronic Assessment and plan: as in [facility] now back to baseline Qualifiers: Chronic kidney disease stage: stage 3 (moderate) Qualified Code(s): N18.3 - Chronic kidney disease, stage 3 (moderate) (4) Cardiomyopathy Current Visit: Yes Status: Chronic Assessment and plan: Secondary to CAD management per cardio Continue lasix Qualifiers: Cardiomyopathy type: unspecified Qualified Code(s): I42.9 - Cardiomyopathy , unspecified (5) Cjffa-yu-nryshjz kidney injury Current Visit: Yes Status: Acute Assessment and plan: Resolved renal function at baseline will continue to monitor (6) CAD (coronary artery disease) Current Visit: Yes Status: Chronic Assessment and plan: Echo July 2014 showed EF preserved at 60%. Current echo shows EF 15-20%, RV size with severe reduction in global function, mild MR, btmv-xd-rzgofddk TR, mild MI. New severe cardiomyopathy. Known CAD, prior CABG. Known 2/3 patient grafts-- In this admission, cath showed no significant changes. Qualifiers: Coronary Disease-Associated Artery/Lesion type: unspecified vessel or lesion type [place] vs. transplanted heart: [place] heart Associated angina: without angina Qualified Code(s): I25.10 - Atherosclerotic heart disease of [place] coronary artery without angina pectoris (7) CHF (congestive heart failure) Current Visit: Yes Status: Acute Assessment and plan: Echo July 2014 showed EF preserved at 60%. ECHO this admission revealed EF 15-20%, RV size with severe reduction in global function, mild MR, worc-ip-xhljfpoa TR, mild MI. New severe cardiomyopathy. Known CAD, prior CABG. Known 2/3 patient grafts-- cath showed no significant changes. Continue diuresis/BB Renal function stable now, continue to monitor Qualifiers: Congestive heart failure type: systolic Congestive heart failure chronicity : acute Qualified Code(s): I50.21 - Acute systolic (congestive) heart failure (8) UTI (urinary tract infection) Current Visit: Yes Status: Suspected Assessment and plan: Ruled out, urine culture negative Qualifiers: Urinary tract infection type: site unspecified Hematuria presence: with hematuria Qualified Code(s): N39.0 - Urinary tract infection, site not specified; R31.9 - Hematuria, unspecified (9) Pain of right lower extremity Current Visit: Yes Status: Chronic Assessment and plan: Secondary to PAD JAVI noted - Subjective Interval history: Seen and evaluated at bedside Patient seen in the afternoon today He just returned from SHIVAM and cardioversion he is sinus rhythm Denies new complains, he is still on amiodarone drip, awaiting reports from cardio - Constitutional Vitals: Temp Pulse Resp BP Pulse Ox 97.6 F 80 16 138/99 94 02/20/17 13:00 02/20/17 13:45 02/20/17 13:45 02/20/17 13:45 02/20/17 13:45 General appearance: Present: cooperative, A&O X 3, pleasant, no acute distress, obese, answers questions appropriately - Head Head exam: Present: atraumatic, normocephalic - Eye Eye exam: Present: EOMI, PERRL - Neck Neck exam general surgery: Present: supple, trachea midline. Absent: lymphadenopathy - Respiratory Respiratory exam: Present: CTAB. Absent: accessory muscle use, rales, rhonchi, wheezes - Cardiovascular Cardiovascular exam: Present: RRR, +S1, +S2. Absent: diastolic murmur, gallop, rubs, systolic murmur - GI/Abdominal GI/Abdominal exam: Present: normal bowel sounds, soft, no peritoneal signs. Absent: distended, tenderness - Extremities Exam Extremities exam: Present: pedal edema (2+ piting pedal edema), warm, radial pulses palpable and symetrical. Absent: calf tenderness, cyanotic - Neurological Exam Neurological exam: Present: alert, CN II-XII intact, oriented X3, no focal deficits. Absent: pronater drift, facial droop, speech deficit - Skin Skin exam: Present: dry Internal Medicine: Result - Labs CBC & Chem 7: 02/19/17 04:40 02/19/17 04:40 - ABG Interpretation ABG results: PT/INR, D-dimer PT 15.2 Seconds (9.4-12.1) H 02/12/17 12:40 - VTE Documentation of Mechanical Device: Graduated compression elastic hosiery Consult Discharge Plan - Plan Referrals: Chad Srivastava MD [Primary Care Provider] - 02/27/17 10:40 am () Buffy Vinson CNP [Partnered Physician] - (office will call with patient at home with a follow up appointment)
[2017-02-20] MEDS: *HR* Amiodarone 200 MG TABLET PO SCH (15:03)
--- NOTE | 2017-02-20 15:38 | Vascular/Endovasc Consult Note ---
Date of Encounter: 02/20/17 Time of Encounter: 15:36 Assessment and Plan (1) PAD (peripheral artery disease) Current Visit: No Status: Chronic Patient is status post 3 stents for chronic right iliac artery occlusions from 2014. Noninvasive findings would suggest that the stents remain patent. The patient's right lateral thigh numbness appears to be neurologic in origin rather than vasculogenic. His true physiologic response cannot be adequately assessed due to his shortness of breath and cardiopulmonary issues. I will ask the patient to continue to follow up with me as scheduled. We'll be happy to see the patient sooner should any new symptoms or vascular concerns arise. - History of Present Illness Consult date: 02/20/17 Requesting physician: Austin Tafoya Consult reason: Right leg pain Chief complaint: Patient complains of numbness on the lateral aspect of right thigh History of present illness: Mr. Chavez is a 72 year old male Who is well-known to the vascular surgery service. The patient is status post 3 stents to the right iliac system for chronic occlusion. This was performed in 2014. Because of the patient's symptoms vascular was asked to reevaluate the patient. He was admitted about 10 days ago with atrial fibrillation with rapid ventricular response and shortness of breath. He is undergoing a number of tests and evaluations. He has not done much walking because of very poor exercise tolerance. He does not describe ischemic rest pain or nocturnal rest pain. He does not describe claudication. Noninvasive studies were performed which show an ankle-brachial index of 0.91 on the right and 1.3 on the left. Past Med Surg Social Fam HX - Past Medical History Medical history: atrial fibrillation, cancer, coronary artery disease, hyperlipidemia, hypertension Psychiatric history: no psych history - Past Surgical History Surgical History: cataract, coronary bypass (CABG), herniorrhaphy, LE stent(s), splenectomy, other - Social History Smoking Status: Former smoker Packs per day: 4 PPD Smokeless Tobacco Status: No Alcohol use: none Drug use: none - Family History Mother Race: Family Member Ethnicity: Non- Living Status: Age at : 79 Cause of : [place] Hx Family Cardiac Disorders: Yes ([place]) Father Race: Family Member Ethnicity: Non- Living Status: Age at : 51 Cause of : [place] Hx Family Cardiac Disorders: Yes ([place]) Medications and Allergies Aspirin 81 mg PO DAILY 07/20/16 [History] Clopidogrel [Plavix] 75 mg PO DAILY 07/20/16 [History] Losartan/Hydrochlorothiazide [Hyzaar 100-25 Tablet] 1 tab PO DAILY 07/20/16 [ History] Metoprolol XL (24 HR) Succ [Toprol Xl] 25 mg PO DAILY 07/20/16 [History] Tamsulosin [Flomax] 0.8 mg PO DAILY 07/20/16 [History] predniSONE [PredniSONE] 10 mg PO TAPER 02/10/17 [History] Allergies Penicillins Adverse Reaction (Verified 07/20/16 07:33) See Comments welts ramipril [From Altace] Adverse Reaction (Verified 07/20/16 07:33) Cough Wwszjmo-Cpu-Zvd Reductase Inhibitor [Statins] Adverse Reaction (Verified 07:33) Muscle Pain All Systems Review: A 10-system review of systems was performed and is negative for pertinent findings except as documented above in the HPI. Exam Vital Signs, Last 4 Hours Temp Pulse Resp BP Pulse Ox 02/20/17 15:00 82 146/99 02/20/17 14:30 79 143/101 02/20/17 14:00 79 139/100 02/20/17 13:45 80 16 138/99 94 02/20/17 13:30 70 16 131/105 97 02/20/17 13:15 74 16 116/102 97 02/20/17 13:00 97.6 F 76 16 127/96 94 General: Present: Conversant, No Apparent Distress Lungs: Present: Decreased breath sounds Neuro: Present: Alert and responsive, No focal deficits noted, Cranial nerves grossly intact Abdomen: Present: Soft, Non-tender Vascular: Present: Other (I could not adequately examine the patient as he was seated in a chair. He demonstrates mild edema to both lower extremities. His skin is cool to the touch bilaterally. He has no streaking or cellulitis.) Consult Discharge Plan - Plan Referrals: Chad Srivastava MD [Primary Care Provider] - 02/27/17 10:40 am () Buffy Vinson CNP [Partnered Physician] - (office will call with patient at home with a follow up appointment)
--- NOTE | 2017-02-20 16:14 | Electrocardiograph Report ---
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
[2017-02-21 05:32] LABS: Basophils % 0.1 %; Eosinophils % 0.5 %; Hematocrit 46.3 % (37.5-50.1); Hemoglobin 14.9 g/dL (12.9-16.9); Immature Granulocytes % 0.7 % (0-4); Lymphocytes # 1.1 K/mcL (0.6-4.6); Lymphocytes % 8.4 %; Mean Corpuscular HGB Conc 32.2 g/dL (31.6-35.5); Mean Corpuscular Hemoglobin 30.7 pg (28.0-33.3); Mean Corpuscular Volume 95.5 fL (83.0-100.0); Mean Platelet Volume 10.9 fL (9.4-12.4); Monocytes % 7.5 %; Neutrophils # 11.1 K/mcL (1.6-8.9); Platelet Count 112 K/mcL (140-400); Red Blood Count 4.85 M/mcL (4.19-5.50); Red Cell Distribution Width 16.1 % (11.5-14.5); Segmented Neutrophils % 82.8 %
[2017-02-21 05:33] LABS: Eosinophils # 0.1 K/mcL (0.0-0.6)
[2017-02-21 05:43] LABS: BUN/Creatinine Ratio 35 (6-26); Blood Urea Nitrogen 32 mg/dL (8-26); Calcium 8.4 mg/dL (8.6-10.8); Carbon Dioxide 34 mEq/L (19-29); Chloride 99 mEq/L (98-109); Glucose 101 mg/dL (70-99); Osmolality,Calculated 305 (280-300); Potassium 3.3 mEq/L (3.5-4.5); Sodium 144 mEq/L (136-145); eGFR For African Americans > 60 (> 60); eGFR For Non-African Americans > 60 (> 60)
[2017-02-21] MEDS: Aspirin 81 MG TAB.CHEW PO SCH (08:15)
[2017-02-21] MEDS: Sennosides/Docusate Sodium TABLET PO SCH ×2 (08:15→20:31)
[2017-02-21] MEDS: Metoprolol XL (24 HR) Succ 50 MG TAB.ER.24H PO SCH ×2 (08:15→20:31)
[2017-02-21] MEDS: *HR* Amiodarone 200 MG TABLET PO SCH (08:15)
[2017-02-21] MEDS: Lactulose Oral Soln 20 GM/30 ML UDC PO SCH ×2 (08:15→20:31)
[2017-02-21] MEDS: APIXABAN 5 MG TABLET PO SCH ×2 (08:15→20:31)
[2017-02-21] MEDS: Furosemide 40 MG TABLET PO SCH (08:16)
[2017-02-21] MEDS ORDERED: PREDNISONE 10 MG TAB PO SCH (09:00)
--- NOTE | 2017-02-21 11:37 | Cardiology Progress Note ---
Date of Encounter: 02/21/17 Time of Encounter: 11:34 Assessment and Plan (1) Atrial fibrillation with RVR Current Visit: Yes Status: Acute Per Cardiology: He had previously maintained sinus rhythm since AF ablation in 2012 ([place]). Pt was loaded with IV digoxin and IV amio x2, now on PO of both--Amio PO 400mg daily and PO Digoxin 125mcg QOD (renally dosed). Toprol XL 100mg BID. Pt was unable to be rate controlled, underwent SHIVAM guided DCCV yesterday, successful 1 shock to Sinus rhythm. Pt has maintained SR overnight. 12 hour tele AVG HR 74, SR with ectopy. Regarding long-term anticoagulation, [id number] score 3, now on Eliquis 5mg PO BID--Eliquis ortega check $48 per month). Cardiology is signing off. Reconsult PRN. Follow-up as outpt--will coordinate. (2) Cardiomyopathy Current Visit: Yes Status: Chronic Per Cardiology: Echo July 2014 showed EF preserved at 60%. Current echo shows EF 15-20%, RV size with severe reduction in global function, mild MR, tvmf-aq-wigamveb TR, mild [place]. New severe cardiomyopathy. Known CAD, prior CABG. Known 2/3 patient grafts-- cath showed no significant changes. Suspect tachycardia induced. Lower extremity edema much improved as well as dyspnea. Net negative -2469mL. On PO Lasix, renal function stable. Qualifiers: Cardiomyopathy type: unspecified Qualified Code(s): I42.9 - Cardiomyopathy , unspecified (3) CAD (coronary artery disease) Current Visit: Yes Status: Chronic Known CAD, prior CABG. Known 2/3 patient grafts-- cath showed no significant changes. ASA, BB. Hx of statin intolerance. Qualifiers: Coronary Disease-Associated Artery/Lesion type: unspecified vessel or lesion type [place] vs. transplanted heart: [place] heart Associated angina: without angina Qualified Code(s): I25.10 - Atherosclerotic heart disease of [place] coronary artery without angina pectoris (4) Pain of right lower extremity Current Visit: Yes Status: Chronic Report right lower extremity pain. Hx of femoral stents. Pt evaluated by Dr. Briceno. No further vascular work-up as inpt. Discussion w patient/family: The assessment and plan as outlined above was discussed with the patient and/or family members who expressed understanding and agreement. All questions were answered. Thank you for involving us in the care of your patient. Please call with any questions. I will discuss all the above with Dr. Hernandez and make changes as necessary. Subjective Principal diagnosis: Afib RVR Interval history: Pt reports feeling great today. Successful SHIVAM/DCCV yesterday. 12 hour tele AVG HR 74, SR with ectopy noted. Objective Vital Signs, Last 4 Hours Temp Pulse Resp BP Pulse Ox 02/21/17 11:15 69 02/21/17 08:20 72 02/21/17 07:41 97.2 F L 72 18 141/98 98 Vital Signs Temp Pulse Resp BP Pulse Ox 02/21/17 11:15 69 02/21/17 08:20 72 02/21/17 07:41 97.2 F L 72 18 141/98 98 02/21/17 04:45 74 02/21/17 04:40 97.6 F 74 21 131/86 98 02/21/17 00:30 75 02/20/17 23:53 97.9 F 82 14 132/95 99 02/20/17 20:15 79 02/20/17 19:12 97.6 F 83 18 136/90 96 02/20/17 16:31 97.6 F 81 18 138/92 93 02/20/17 15:00 82 146/99 02/20/17 14:30 79 143/101 02/20/17 14:00 79 139/100 02/20/17 13:45 80 16 138/99 94 02/20/17 13:30 70 16 131/105 97 02/20/17 13:15 74 16 116/102 97 02/20/17 13:00 97.6 F 76 16 127/96 94 Intake and Output 02/20/17 02/21/17 02/21/17 23:59 07:59 15:59 Intake Total 0 / 0 240 / 240 Output Total 225 / 225 100 / 100 350 / 350 Balance -225 / -225 -100 / -100 -110 / -110 Intake: Oral 0 / 0 240 / 240 Output: Urine 225 / 225 100 / 100 350 / 350 Other: Meal Dinner Breakfast Percent of Meal Consumed 0% 100% Stool Size Small Moderate Stool Consistency soft formed formed Stool Characteristics Normal for Patient Stool Color Brown Brown # Bowel Movements 1 Weight 95.5 kg Patient Weight 02/21/17 23:59 Weight 95.5 kg General: Conversant, No Apparent Distress HEENT: Atraumatic, Normocephaly, Mucus Membranes Moist Neck: No JVD, Normal carotid pulses Cardiac: Reg Rate and Rhythm, Normal S1 and S2, No Murmur Lungs: Normal Breath Sounds, No Wheeze, Rales, Rhonchi Neuro: Alert and responsive, No focal deficits noted Abdomen: Soft, Non-Tender Skin: No rashes noted on visualized skin Musculoskeletal: No Chest Wall Tenderness Extremities: No Clubbing, No Cyanosis, No Edema, Normal Pulses Results 02/21/17 04:55 02/21/17 04:55 Lab Results 02/21/17 02/21/17 04:55 04:55 WBC 13.4 H Hgb 14.9 Hct 46.3 Plt Count 112 L Sodium 144 Potassium 3.3 L Chloride 99 Carbon Dioxide 34 H BUN 32 H Creatinine 0.92 Glucose 101 H Calcium 8.4 L Short CBC 02/21/17 Range/Units 04:55 WBC 13.4 H (4.3-11.1) K/mcL Hgb 14.9 (12.9-16.9) g/dL Hct 46.3 (37.5-50.1) % Plt Count 112 L (140-400) K/mcL Neutrophils # 11.1 H (1.6-8.9) K/mcL BMP 02/21/17 Range/Units 04:55 Sodium 144 (136-145) mEq/L Potassium 3.3 L (3.5-4.5) mEq/L Chloride 99 (98-109) mEq/L Carbon Dioxide 34 H (19-29) mEq/L BUN 32 H (8-26) mg/dL Creatinine 0.92 (0.72-1.25) mg/dL Glucose 101 H (70-99) mg/dL Calcium 8.4 L (8.6-10.8) mg/dL Active Medications Acetaminophen (Tylenol) 650 mg PO Q6HR PRN PRN Reason: Mild Pain (1-3) Stop: 08/12/17 10:59 Last Admin: 02/19/17 22:09 Dose: 650 mg Acetaminophen/Hydrocodone Bitart ([place] 5-325 Mg) 1 tab PO Q6HR PRN PRN Reason: moderate leg/back pain Stop: 08/16/17 09:29 Last Admin: 02/18/17 04:18 Dose: 1 tab Amiodarone HCl (Cordarone) 400 mg PO DAILY [facility] Stop: 08/22/17 14:39 Last Admin: 02/21/17 08:15 Dose: 400 mg Apixaban (Eliquis) 5 mg PO BID [facility] Stop: 08/16/17 21:01 Last Admin: 02/21/17 08:15 Dose: 5 mg Aspirin (Aspirin) 81 mg PO DAILY [facility] Stop: 08/13/17 09:01 Last Admin: 02/21/17 08:15 Dose: 81 mg Digoxin (Lanoxin) 0.125 mg PO QOD [facility] Stop: 08/20/17 09:01 Last Admin: 02/20/17 08:39 Dose: 0.125 mg Furosemide (Lasix) 40 mg PO DAILY [facility] Stop: 08/21/17 09:01 Last Admin: 02/21/17 08:16 Dose: 40 mg Guaifenesin (Robitussin/Dm) 5 ml PO Q6HR PRN PRN Reason: Cough Stop: 08/22/17 10:54 Last Admin: 02/21/17 04:53 Dose: 5 ml Lactulose (Lactulose) 10 gm PO BID [facility] Stop: 08/12/17 12:01 Last Admin: 02/21/17 08:15 Dose: 10 gm Magnesium Hydroxide (Milk Of Magnesia Conc) 10 ml PO DAILY PRN PRN Reason: Indigestion Stop: 08/12/17 10:59 Metoprolol Succinate (Toprol Xl) 100 mg PO BID [facility] Stop: 08/21/17 09:01 Last Admin: 02/21/17 08:15 Dose: 100 mg Naloxone HCl (Narcan) 0.4 mg IVP Q2MIN PRN PRN Reason: Opioid Reversal Stop: 08/12/17 10:59 Ondansetron HCl (Zofran) 4 mg IVP Q8HR PRN PRN Reason: Nausea And Vomiting Stop: 08/12/17 10:59 Polyethylene Glycol (Miralax) 17 gm PO BID PRN PRN Reason: Constipation Stop: 08/15/17 10:49 Senna/Docusate Sodium (Senna Plus) 1 each PO BID [facility] PRN Reason: Protocol Stop: 08/14/17 21:01 Last Admin: 02/21/17 08:15 Dose: 1 each Tamsulosin HCl (Flomax) 0.8 mg PO DAILY J[facility] PRN Reason: Protocol Stop: 08/13/17 09:01 Last Admin: 02/21/17 08:15 Dose: 0.8 mg - Imaging and Cardiology Echo: report reviewed Cardiac cath: report reviewed - EKG Interpretation EKG results cardiology: other (12 hour tele AVG HR 74, SR with ectopy) - VTE Documentation of Mechanical Device: Graduated compression elastic hosiery Consult Discharge Plan - Plan Referrals: Chad Srivastava MD [Primary Care Provider] - 02/27/17 10:40 am () Buffy Vinson CNP [Partnered Physician] - (office will call with patient at home with a follow up appointment)
--- NOTE | 2017-02-21 11:49 | Internal Med Progress Note ---
Date of Encounter: 02/21/17 Time of Encounter: 10:10 - Assessment and plan (1) Atrial fibrillation with RVR Current Visit: Yes Status: Acute Assessment and plan: s/p SHIVAM and Cardioversion s/p [facility] with no changes in CAD Continue Eliquis 5mg PO BID Continue Digoxin/Toprol for now continue tele monitoring, cardiology following up with patient (2) Cardiomyopathy Current Visit: Yes Status: Chronic Assessment and plan: Secondary to CAD management per cardio Continue lasix Qualifiers: Cardiomyopathy type: unspecified Qualified Code(s): I42.9 - Cardiomyopathy , unspecified (3) Zfyma-mn-wlcpjlb kidney injury Current Visit: Yes Status: Acute Assessment and plan: Resolved renal function at baseline will continue to monitor (4) CAD (coronary artery disease) Current Visit: Yes Status: Chronic Assessment and plan: Echo July 2014 showed EF preserved at 60%. Current echo shows EF 15-20%, RV size with severe reduction in global function, mild MR, rphg-of-rbtqqkhd TR, mild [place]. New severe cardiomyopathy. Known CAD, prior CABG. Known 2/3 patient grafts-- this admission, cath showed no significant changes. Qualifiers: Coronary Disease-Associated Artery/Lesion type: unspecified vessel or lesion type [place] vs. transplanted heart: [place] heart Associated angina: without angina Qualified Code(s): I25.10 - Atherosclerotic heart disease of [place] coronary artery without angina pectoris (5) PAD (peripheral artery disease) Current Visit: No Status: Chronic Assessment and plan: s/p 3 stents to right iliac artery, vascular surgery consulted - Time Spent With Patient 25 - 35 minutes - Subjective Interval history: Patient awake and alert. Not in any distress. Feels better. HR is controlled. Successful cardioversion yesterday. No fever. No other acute evens or complaints. - Constitutional Vitals: Temp Pulse Resp BP Pulse Ox 97.2 F L 69 18 141/98 98 02/21/17 07:41 02/21/17 11:15 02/21/17 07:41 02/21/17 07:41 02/21/17 07:41 General appearance: Present: cooperative, A&O X 3, pleasant, no acute distress, obese, answers questions appropriately - Eye Eye exam: Present: EOMI - Neck Neck exam general surgery: Present: supple - Respiratory Respiratory exam: Present: CTAB. Absent: rhonchi, wheezes - Cardiovascular Cardiovascular exam: Present: RRR, +S1, +S2. Absent: systolic murmur - GI/Abdominal GI/Abdominal exam: Present: soft. Absent: guarding, tenderness - Extremities Exam Extremities exam: Present: radial pulses palpable and symetrical. Absent: cyanotic, pedal edema - Neurological Exam Neurological exam: Present: alert, oriented X3, no focal deficits Internal Medicine: Result - Labs CBC & Chem 7: 02/21/17 04:55 02/21/17 04:55 Labs: Short CBC 02/21/17 Range/Units 04:55 WBC 13.4 H (4.3-11.1) K/mcL Hgb 14.9 (12.9-16.9) g/dL Hct 46.3 (37.5-50.1) % Plt Count 112 L (140-400) K/mcL Neutrophils # 11.1 H (1.6-8.9) K/mcL BMP 02/21/17 04:55 Sodium 144 Potassium 3.3 L Chloride 99 Carbon Dioxide 34 H BUN 32 H Creatinine 0.92 Glucose 101 H Calcium 8.4 L - ABG Interpretation ABG results: PT/INR, D-dimer PT 15.2 Seconds (9.4-12.1) H 02/12/17 12:40 - VTE Documentation of Mechanical Device: Graduated compression elastic hosiery Consult Discharge Plan - Plan Referrals: Chad Srivastava MD [Primary Care Provider] - 02/27/17 10:40 am () Buffy Vinson CNP [Partnered Physician] - (office will call with patient at home with a follow up appointment)
[2017-02-22 04:14] LABS: Basophils % 0.1 %; Eosinophils # 0.2 K/mcL (0.0-0.6); Hematocrit 47.8 % (37.5-50.1); Hemoglobin 15.1 g/dL (12.9-16.9); Immature Granulocytes % 0.6 % (0-4); Lymphocytes # 1.4 K/mcL (0.6-4.6); Lymphocytes % 9.5 %; Mean Corpuscular HGB Conc 31.6 g/dL (31.6-35.5); Mean Corpuscular Hemoglobin 30.1 pg (28.0-33.3); Mean Corpuscular Volume 95.4 fL (83.0-100.0); Mean Platelet Volume 11.2 fL (9.4-12.4); Monocytes % 6.9 %; Platelet Count 118 K/mcL (140-400); Red Blood Count 5.01 M/mcL (4.19-5.50); Red Cell Distribution Width 15.9 % (11.5-14.5); Segmented Neutrophils % 81.9 %
[2017-02-22 04:26] LABS: BUN/Creatinine Ratio 32 (6-26); Blood Urea Nitrogen 31 mg/dL (8-26); Calcium 8.6 mg/dL (8.6-10.8); Carbon Dioxide 36 mEq/L (19-29); Chloride 99 mEq/L (98-109); Glucose 108 mg/dL (70-99); Osmolality,Calculated 303 (280-300); Potassium 3.7 mEq/L (3.5-4.5); Sodium 143 mEq/L (136-145); eGFR For African Americans > 60 (> 60); eGFR For Non-African Americans > 60 (> 60)
[2017-02-22] MEDS: Aspirin 81 MG TAB.CHEW PO SCH (08:18)
[2017-02-22] MEDS: APIXABAN 5 MG TABLET PO SCH (08:18)
[2017-02-22] MEDS: Sennosides/Docusate Sodium TABLET PO SCH (08:18)
[2017-02-22] MEDS: Furosemide 40 MG TABLET PO SCH (08:18)
[2017-02-22] MEDS: Metoprolol XL (24 HR) Succ 50 MG TAB.ER.24H PO SCH (08:18)
[2017-02-22] MEDS: *HR* Digoxin 0.125 MG TABLET PO SCH (08:19)
[2017-02-22] MEDS: *HR* Amiodarone 200 MG TABLET PO SCH (08:19)
[2017-02-22] MEDS: Lactulose Oral Soln 20 GM/30 ML UDC PO SCH (08:22)
[2017-02-22] MEDS ORDERED: MOM Conc 10 ML UD.LIQ PO PRN (09:12)
[2017-02-22] MEDS ORDERED: Acetaminophen 325 MG TABLET PO PRN (09:12)
[2017-02-22] MEDS ORDERED: Naloxone 0.4 MG/ML INJ IVP PRN (09:12)
[2017-02-22] MEDS ORDERED: Ondansetron 4 MG/2 ML VIAL IVP PRN (09:12)
--- NOTE | 2017-02-22 11:15 | Discharge Summary ---
Date of Encounter: 02/23/17 Time of Encounter: 09:15 - Discharge Diagnosis (1) Atrial fibrillation with RVR Priority: Primary Status: Chronic Comments: s/p JULIAN and Cardioversion s/p C with no changes in CAD Continue Eliquis 5mg PO BID Continue Digoxin/Toprol for now (2) Cardiomyopathy Priority: Primary Status: Chronic Comments: Echo July 2014 showed EF preserved at 60%. Current echo shows EF 15-20%, RV size with severe reduction in global function, mild MR, pacc-of-eaosyfgv TR, mild [place]. New severe cardiomyopathy. Known CAD, prior CABG. Known 2/3 patient grafts-- cath showed no significant changes. Suspect tachycardia induced. Lower extremity edema much improved as well as dyspnea. On PO Lasix, renal function stable. Qualifiers: Cardiomyopathy type: unspecified Qualified Code(s): I42.9 - Cardiomyopathy , unspecified (3) Fjagc-yd-nbotdba kidney injury Priority: Primary Status: Resolved Comments: Resolved renal function at baseline (4) CAD (coronary artery disease) Priority: Secondary Status: Chronic Comments: Echo July 2014 showed EF preserved at 60%. Current echo shows EF 15-20%, RV size with severe reduction in global function, mild MR, omtp-xz-mmfwplox TR, mild [place]. New severe cardiomyopathy. Known CAD, prior CABG. Known 2/3 patient grafts-- this admission, LHC showed no significant changes. Qualifiers: Coronary Disease-Associated Artery/Lesion type: unspecified vessel or lesion type [place] vs. transplanted heart: [place] heart Associated angina: without angina Qualified Code(s): I25.10 - Atherosclerotic heart disease of [place] coronary artery without angina pectoris (5) PAD (peripheral artery disease) Priority: Secondary Status: Chronic Comments: s/p 3 stents to right iliac artery, vascular surgery outpatient follow up - Discharge Medications Home Medications: Aspirin 81 mg PO DAILY 07/20/16 [History] Losartan/Hydrochlorothiazide [Hyzaar 100-25 Tablet] 1 tab PO DAILY 07/20/16 [ History] Tamsulosin [Flomax] 0.8 mg PO DAILY 07/20/16 [History] predniSONE [PredniSONE] 10 mg PO TAPER 02/10/17 [History] Amiodarone [Cordarone] 400 mg PO DAILY 02/22/17 [History] Apixaban [Eliquis] 5 mg PO BID 02/22/17 [History] Digoxin [Lanoxin] 0.125 mg PO DAILY 02/22/17 [History] Furosemide [Lasix] 40 mg PO DAILY 02/22/17 [History] Metoprolol XL (24 HR) Succ [Toprol XL] 100 mg PO DAILY 02/22/17 [History] Allergies/Adverse Reactions: Allergies Penicillins Adverse Reaction (Verified 07/20/16 07:33) See Comments welts ramipril [From Altace] Adverse Reaction (Verified 07/20/16 07:33) Cough Rqnfasd-Wyh-Fos Reductase Inhibitor [Statins] Adverse Reaction (Verified 07:33) Muscle Pain Procedures/tests Complete & Pending: Procedures Performed prior 72 hours Category Date Time Status ECG 12 lead ECG [ECG] Routine Y 02/20/17 10:49 Completed ECG 12 lead ECG [ECG] Routine Y 02/20/17 12:05 Completed EV julian guided cardioversion Routine Y 02/20/17 09:21 Completed Date of admission: 02/10/17 10:58 Primary care physician: Chad Srivastava MD Consults: 02/10/17 11:12 Consult to Cardiology [CONS] Routine Comment: Consulting Provider: Cardiology [place] Reason for Consult: Patient presents with Afib RVR Call Completed: Yes Consult to Urology [CONS] Routine Consulting Provider: Urology [place] Reason for Consult: Patient unable to urinate substantially for past ten days Call Completed: Yes 02/11/17 12:02 Consult to Spine Navigator [CONS] [CONS] Routine 02/11/17 13:03 Consult to Nephrology [CONS] Routine Consulting Provider: Anne-Marie Lee Reason for Consult: SONNY Call Completed: No 02/12/17 11:47 Consult to Physician [CONS] Routine Consulting Provider: Saul Mcmillan Jr Reason for Consult: Sciatica, Spinal stenosis Call Completed: Yes 02/13/17 01:44 Consult to Palliative Care [CONS] Routine Comment: Consulting Provider: Palliative Care [place] Reason for Consult: End-stage systolic heart failure. EF 10-15% Call Completed: No 02/14/17 13:24 Consult to Physical Therapy [CONS] Routine Comment: Evaluate, develop and implement POC Reason for Consult: NEED FOR ECF PLACEMENT 02/15/17 13:13 Consult to Invasive Line Access Team [CONS] Routine Reason for Consult: Limited Vasc Access Line Type: EPIV 02/16/17 10:59 Consult to Invasive Line Access Team [CONS] Routine Reason for Consult: limited vasc access Line Type: EPIV 02/17/17 14:11 Consult to Occupational Therapy [CONS] Stat Comment: Evaluate, develop and implement POC Reason for Consult: ECF PLACEMENT, ORDER NOT GOING THROUGH ON ROUTINE ORDERS 02/20/17 10:13 Consult to Vascular Surgery [CONS] Routine Consulting Provider: Vascular Surgery [place] Reason for Consult: Concern for right femoral artery stenosis Call Completed: Yes Anticipated date of discharge: 02/22/17 - Patient Status Disposition: Transfer SNF Condition: Fair Functional capacity at discharge: uses cane/walker Overall status at discharge: patient is back to baseline - Discharge Instructions Instructions: Heart Failure (DC), Atrial Fibrillation (DC), Pacemaker (DC), Acute Kidney Injury (DC), Peripheral Vascular Disorders (DC) Follow Up With: Chad Srivastava MD [Primary Care Provider] - (patient is going to ECF, No PCP appointment needed) Buffy Vinson CNP [Partnered Physician] - (office will call with patient at home with a follow up appointment) - Diet and Activity Activity: ambulate only with your walker, resume usual activities as tolerated Diet: advance to your usual diet, low fat, low cholesterol, low salt diet Hospital course: Mr. Chavez is a 72 year old male. Presented with shortness of breath and difficulty urinating. Found to have Afib with RVR. . 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 Initial lab results show troponin of 0.10, creatinine of 1.80, and GFR of 37. Mr. Chavez has a history of atrial fibrillation, CAD, hypertension, prostatic hypertrophy, and testicular cancer with removal of right testicle. Patient has surgical history of triple bypass (CABG), herniorrhaphy, LV stents, direct surgery, laminectomy, and cardiac ablation 5 years ago. Patient had nuclear stress test on 06/29/16, heart catheterization on 07/20/16, and carotid duplex imaging on 12/26/16. Evaluated by cardiology, nephrology, urology and vascular surgery. Initially treated with IV Cardizem. Also started on Eliquis. Found to have cardiomyopathy with LVEF 15-20%. Also started on Amiodarone and Digoxin. Now on Toprol XL. Cardioversion and JULIAN done. Patient tolerated procedures well. Now in NSR. No complications during hospital stay. At the time of discharge, patient is awake and alert. Not in any distress. Tolerating oral diet. No complaints. Feels better and wants to be discharged. Explained about condition and plan of care. Understood and agreed. No unanswered questions. Patient requested to be a DNR/DNI status. He was also evaluated by palliative care. - Time Spent with Patient Total time spent providing and/or coordinating discharge services: Greater than 30 minutes - Constitutional Vitals: Temp Pulse Resp BP Pulse Ox 97.7 F 76 16 126/80 95 02/22/17 09:00 02/22/17 09:50 02/22/17 09:00 02/22/17 09:50 02/22/17 09:50 General appearance: Present: cooperative, A&O X 3, pleasant, no acute distress, obese, answers questions appropriately - Head Head exam: Present: atraumatic - ENT ENT exam: Present: mucous membranes moist - Neck Neck exam general surgery: Present: supple - Respiratory Respiratory exam: Present: CTAB. Absent: rhonchi, wheezes - Cardiovascular Cardiovascular exam: Present: irregular rhythm, +S1, +S2 - GI/Abdominal GI/Abdominal exam: Present: soft. Absent: guarding, tenderness - Extremities Exam Extremities exam: Present: pedal edema (mild b/l), radial pulses palpable and symetrical. Absent: cyanotic, tenderness - Neurological Exam Neurological exam: Present: alert, oriented X3, no focal deficits - VTE Documentation of Mechanical Device: Graduated compression elastic hosiery
--- NOTE | 2017-02-22 12:01 | Physician Discharge Referral ---
ExtendedCare Referral Info Transfer To: [facility] Provider in Charge: Fred Silva Provider in Charge after Transfer: PCP Institutional Level of Care: Skilled - Diagnosis (1) Atrial fibrillation with RVR Status: Chronic (2) Cardiomyopathy Status: Chronic (3) Bhtgj-uu-lodlivn kidney injury Status: Resolved (4) CAD (coronary artery disease) Status: Chronic (5) PAD (peripheral artery disease) Status: Chronic - Transfer Medications Home Medications: Aspirin 81 mg PO DAILY 07/20/16 [History] Losartan/Hydrochlorothiazide [Hyzaar 100-25 Tablet] 1 tab PO DAILY 07/20/16 [ History] Tamsulosin [Flomax] 0.8 mg PO DAILY 07/20/16 [History] predniSONE [PredniSONE] 10 mg PO TAPER 02/10/17 [History] Amiodarone [Cordarone] 400 mg PO DAILY 02/22/17 [History] Apixaban [Eliquis] 5 mg PO BID 02/22/17 [History] Digoxin [Lanoxin] 0.125 mg PO DAILY 02/22/17 [History] Furosemide [Lasix] 40 mg PO DAILY 02/22/17 [History] Metoprolol XL (24 HR) Succ [Toprol XL] 100 mg PO DAILY 02/22/17 [History] Allergies/Adverse Reactions: Allergies Penicillins Adverse Reaction (Verified 07/20/16 07:33) See Comments randa ramipril [From Altace] Adverse Reaction (Verified 07/20/16 07:33) Cough Nueogvu-Snf-Wqa Reductase Inhibitor [Statins] Adverse Reaction (Verified 07:33) Muscle Pain - Respiratory Orders Smoking Cessation: Smoking cessation has been advised. For more information, call the [place] Tobacco Quit Line at 0-182-QPXM-NOW. - Lab Orders Lab Orders: CBC - Advance Directives Code Status: DNR-Arrest/Don't Intubate - Mobility Orders Ambulate - Rehabiliation Orders Rehab Potential: Good - Diet Orders Cardiac CERTIFICATION: I certify that the transfer of the above named patient to an Extended Care Facility is necessary for the continuing treatment of the diagnosis listed. The above information is true and accurate reflection of patient's current condition. Confidential - Redisclosure prohibited without a patient's written consent.
[2017-02-22 13:22] VITALS: BP 124/74
--- NOTE | 2017-02-22 15:29 | Electrocardiograph Report ---
[place] [facility] Test Date: 2017-02-20 Pat Name: Tee Chavez Department: 101 Room: 2N04 Gender: M Well Service Floorperson: : 1945 Requested By: Landon Neal Order Number: [id number] Reading MD: Chaitanya Tran MD Measurements Intervals Davin Rate: 67 P: -29 OH: 202 QRS: -5 QRSD: 102 T: 29 QT: 422 QTc: 437 Interpretive Statements SINUS RHYTHM WITH OCCASIONAL SUPRAVENTRICULAR PREMATURE COMPLEXES POSSIBLE ANTERIOR MYOCARDIAL INFARCTION, OF INDETERMINATE AGE Electronically Signed On 02-22-2017 15:27:57 EDT by Chaitanya Tran MD
[2017-02-22] MEDS ORDERED: Metoprolol XL (24 HR) Succ 50 MG TAB.ER.24H PO SCH (21:00)
[2017-02-22] MEDS ORDERED: Lactulose Oral Soln 20 GM/30 ML UDC PO SCH (21:00)
[2017-02-22] MEDS ORDERED: APIXABAN 5 MG TABLET PO SCH (21:00)
[2017-02-22] MEDS ORDERED: Sennosides/Docusate Sodium TABLET PO SCH (21:00)
[2017-02-23] MEDS ORDERED: Aspirin 81 MG TAB.CHEW PO SCH (09:00)
[2017-02-23] MEDS ORDERED: *HR* Amiodarone 200 MG TABLET PO SCH (09:00)
[2017-02-23] MEDS ORDERED: Furosemide 40 MG TABLET PO SCH (09:00)
[2017-02-24] MEDS ORDERED: *HR* Digoxin 0.125 MG TABLET PO SCH (09:00)
== END 2017-02-22 13:24 | DRG 286 ==
LOC: EMEROO 08:48 → 2ANU 08:48 → SUATTDRO 10:58 → 2ANU 11:15 → 2NNU 02-15 13:13
PROVIDERS: ADMIT Internal Medicine; ATTEND Internal Medicine

== ENCOUNTER 2017-04-05 13:59 | Inpatient (IN) ==
[2017-04-05] MEDS ORDERED: Ondansetron 4 MG/2 ML VIAL IVP ONE (15:08)
[2017-04-05] MEDS ORDERED: 0.9 % Sodium Chloride 1,000 ML IVC ONE (15:08)
[2017-04-05 15:45] LABS: Basophils # 0.1 K/mcL (0.0-0.2); Basophils % 0.5 %; Eosinophils # 0.1 K/mcL (0.0-0.6); Eosinophils % 1.2 %; Hematocrit 40.6 % (37.5-50.1); Hemoglobin 13.8 g/dL (12.9-16.9); Immature Platelets 6.7 % (1.1-6.1); Lymphocytes # 1.7 K/mcL (0.6-4.6); Lymphocytes % 18.7 %; Mean Corpuscular Hemoglobin 30.9 pg (28.0-33.3); Mean Platelet Volume 10.2 fL (9.4-12.4); Monocytes % 10.3 %; Neutrophils # 6.4 K/mcL (1.6-8.9); Platelet Count 175 K/mcL (140-400); Red Blood Count 4.46 M/mcL (4.19-5.50); Red Cell Distribution Width 15.2 % (11.5-14.5); Segmented Neutrophils % 68.3 %
[2017-04-05 16:01] LABS: Albumin 3.1 g/dL (3.5-5.0); Albumin/Globulin Ratio 0.9 (1.1-2.2); Bilirubin,Total 0.7 mg/dL (0.2-1.2); Calcium 9.4 mg/dL (8.6-10.8); Globulin 3.4 g/dL (2.4-3.5); Potassium 3.7 mEq/L (3.5-4.5); Total Protein 6.5 g/dL (6.0-8.3)
--- NOTE | 2017-04-05 16:32 | Emergency Department Note ---
Disposition Clinical Impression: Near syncope, Elevated troponin Disposition: Admitted As Inpatient Condition: Good Time of Disposition: 16:40 Dizziness HPI - General Chief Complaint: ED Dizziness Stated Complaint: "dizziness, low bp" Time Seen by Provider: 04/05/17 14:53 Source: patient Limitations: no limitations Nursing Notes Reviewed: Yes Vital Signs Reviewed: Yes - History of Present Illness HPI Narrative: 72-year-old male presents after a near syncopal episode. Patient states he was working the ground when he became suddenly lightheaded. Patient took his blood pressure multiple times and noticed that he was hypotensive. Patient has history of cardiac disease with multiple vessel bypass. Patient states that he felt significantly improved after drinking multiple glasses of water. States he has occasional dull pain in his upper back which is associated with increased exertion of the upper extremities. - Related Data Home Medications Medication Instructions Recorded Confirmed Aspirin 81 mg PO DAILY 07/20/16 04/05/17 Losartan/Hydrochlorothiazide 1 tab PO DAILY 07/20/16 04/05/17 [Hyzaar 100-25 Tablet] Tamsulosin [Flomax] 0.8 mg PO DAILY 07/20/16 04/05/17 Amiodarone [Cordarone] 400 mg PO DAILY 02/22/17 04/05/17 Apixaban [Eliquis] 5 mg PO BID 02/22/17 04/05/17 Digoxin [Lanoxin] 0.125 mg PO DAILY 02/22/17 04/05/17 Furosemide [Lasix] 40 mg PO DAILY 02/22/17 04/05/17 Metoprolol XL (24 HR) Succ [Toprol 100 mg PO DAILY 02/22/17 04/05/17 XL] Potassium Chloride [Klor-Con 10] 10 meq PO DAILY 04/05/17 04/05/17 Allergies Allergy/AdvReac Type Severity Reaction Status Date / Time Penicillins AdvReac See Verified 04/05/17 14:23 Comments ramipril [From Altace] AdvReac Cough Verified 04/05/17 14:23 Pgqrops-Blm-Ptu Reductase AdvReac Muscle Pain Verified 04/05/17 14:23 Inhibitor [Statins] All systems ED: reviewed and negative except as stated. Constitutional: Denies: fever, chills, weakness Cardiovascular: Denies: chest pain, palpitations, dyspnea on exertion Respiratory: Denies: cough, dyspnea, wheezes Gastrointestinal: Denies: abdominal pain, nausea, vomiting, diarrhea Past Medical History - Past Medical History Attestation: Yes The following information was validated with the patient. Source: patient Medical history: Reports: atrial fibrillation, coronary artery disease, hypertension Surgical history: Reports: angioplasty/stent, cataract, coronary bypass (CABG), herniorrhaphy, LE stent(s), splenectomy, other (Removal of right testicle due to testicular cancer) Psychiatric history: Reports: no psych history - Social History Smoking Status: Former smoker Smokeless Tobacco Status: No Alcohol use: Reports: none Drug use: Reports: none Physical Exam General: Alert and in no acute distress Skin: Warm, dry, intact Head: Normocephalic and atraumatic Neck: Supple, trachea midline and no tenderness Cardiovascular: Atrial fibrillation, no murmur, normal perfusion Respiratory: CTAB, no wheezing, cough, or respiratory distress Musculoskeletal: Normal strength, no tenderness, swelling or deformity GI: Soft, nontender, nondistended. Bowel sounds present Neuro: A&O to person, place, time and situation. No focal deficits noted on exam Psychiatric: cooperative and appropriate mood and affect. - General Limitations: no limitations General appearance: alert, in no apparent distress Course Vital Signs Temperature 97.6 F 04/05/17 14:16 Pulse Rate 70 04/05/17 14:16 Respiratory Rate 16 04/05/17 14:16 Blood Pressure 99/67 04/05/17 14:16 O2 Sat by Pulse Oximetry 98 04/05/17 14:16 Temperature 97.6 F 04/05/17 14:16 Pulse Rate 72 04/05/17 16:15 Respiratory Rate 18 04/05/17 16:00 Blood Pressure 119/82 04/05/17 16:15 O2 Sat by Pulse Oximetry 96 04/05/17 16:00 Oxygen Delivery Oxygen Delivery Room Air Dizziness - MDM Narrative Medical decision making narrative: Patient has an elevated troponin however this is at a similar level that it has been in the past. Patient does however have a worsening of his kidney function and will be admitted for further care and evaluation of a near syncopal event in the setting of elevated troponin and acute kidney injury. - Medical Records Medical records reviewed: Yes I reviewed the patient's medical records. - Lab Data Lab results reviewed: Yes I reviewed the patient's lab results. Result diagrams: 04/05/17 15:34 07/19/17 15:34 Lab Results 04/05/17 04/05/17 04/05/17 Range/Units 15:34 15:34 15:34 WBC 9.3 (4.3-11.1) K/mcL RBC 4.46 (4.19-5.50) M/mcL Hgb 13.8 (12.9-16.9) g/dL Hct 40.6 (37.5-50.1) % MCV 91.0 (83.0-100.0) fL MCH 30.9 (28.0-33.3) pg MCHC 34.0 (31.6-35.5) g/dL RDW 15.2 H (11.5-14.5) % Plt Count 175 (140-400) K/mcL MPV 10.2 (9.4-12.4) fL Immature Gran % 1.0 (0-4) % Seg Neutrophils % 68.3 % Lymphocytes % 18.7 % Monocytes % 10.3 % Eosinophils % 1.2 % Basophils % 0.5 % Neutrophils # 6.4 (1.6-8.9) K/mcL Lymphocytes # 1.7 (0.6-4.6) K/mcL Monocytes # 1.0 (0.0-1.3) K/mcL Eosinophils # 0.1 (0.0-0.6) K/mcL Basophils # 0.1 (0.0-0.2) K/mcL Immature Plt Fraction 6.7 H (1.1-6.1) % Sodium 140 (136-145) mEq/L Potassium 3.7 (3.5-4.5) mEq/L Chloride 98 (98-109) mEq/L Carbon Dioxide 34 H (19-29) mEq/L BUN 41 H (8-26) mg/dL Creatinine 2.54 H (0.72-1.25) mg/dL Est GFR ( Amer) 30 L (> 60) Est GFR (Non-Af Amer) 25 L (> 60) BUN/Creatinine Ratio 16 (6-26) Glucose 101 H (70-99) mg/dL POC Glucose (58-89) Calculated Osmolality 300 (280-300) Calcium 9.4 (8.6-10.8) mg/dL Total Bilirubin 0.7 (0.2-1.2) mg/dL AST 16 (5-34) Units/L ALT 17 (0-55) Units/L Alkaline Phosphatase 72 (38-126) Units/L Troponin I 0.08 H* (0-0.03) ng/mL Serum Total Protein 6.5 (6.0-8.3) g/dL Albumin 3.1 L (3.5-5.0) g/dL Globulin 3.4 (2.4-3.5) g/dL Albumin/Globulin Ratio 0.9 L (1.1-2.2) 04/05/17 Range/Units 16:27 WBC (4.3-11.1) K/mcL RBC (4.19-5.50) M/mcL Hgb (12.9-16.9) g/dL Hct (37.5-50.1) % MCV (83.0-100.0) fL MCH (28.0-33.3) pg MCHC (31.6-35.5) g/dL RDW (11.5-14.5) % Plt Count (140-400) K/mcL MPV (9.4-12.4) fL Immature Gran % (0-4) % Seg Neutrophils % % Lymphocytes % % Monocytes % % Eosinophils % % Basophils % % Neutrophils # (1.6-8.9) K/mcL Lymphocytes # (0.6-4.6) K/mcL Monocytes # (0.0-1.3) K/mcL Eosinophils # (0.0-0.6) K/mcL Basophils # (0.0-0.2) K/mcL Immature Plt Fraction (1.1-6.1) % Sodium (136-145) mEq/L Potassium (3.5-4.5) mEq/L Chloride (98-109) mEq/L Carbon Dioxide (19-29) mEq/L BUN (8-26) mg/dL Creatinine (0.72-1.25) mg/dL Est GFR ( Amer) (> 60) Est GFR (Non-Af Amer) (> 60) BUN/Creatinine Ratio (6-26) Glucose (70-99) mg/dL POC Glucose 94 H (58-89) Calculated Osmolality (280-300) Calcium (8.6-10.8) mg/dL Total Bilirubin (0.2-1.2) mg/dL AST (5-34) Units/L ALT (0-55) Units/L Alkaline Phosphatase (38-126) Units/L Troponin I (0-0.03) ng/mL Serum Total Protein (6.0-8.3) g/dL Albumin (3.5-5.0) g/dL Globulin (2.4-3.5) g/dL Albumin/Globulin Ratio (1.1-2.2) - Radiology Data Radiology results reviewed: Yes I reviewed the patient's radiology results. - EKG Data EKG attestation: Yes I reviewed and interpreted this EKG. EKG results narrative: Atrial fibrillation with rate of 73 without evidence of STEMI
[2017-04-05] MEDS ORDERED: Aspirin 81 MG TAB.CHEW PO ONE (17:29)
[2017-04-05] MEDS ORDERED: Acetaminophen 325 MG TABLET PO PRN (17:54)
[2017-04-05] MEDS ORDERED: Naloxone 0.4 MG/ML INJ IVP PRN (17:54)
--- NOTE | 2017-04-05 19:58 | Internal Med History&Physical ---
Date of Encounter: 04/05/17 Time of Encounter: 18:00 Assessment and Plan (1) Elevated troponin Current visit: No Status: Acute Probably due to hypotension caused demand ischemia. We will check 3 sets of troponin. Patient denies chest pain. (2) DVT prophylaxis Current visit: No Status: Acute Patient is on Eliquis. (3) Acute renal failure Current visit: No Status: Acute Possibly due to hypotension. We will continue give patient IV fluid. Closely follow up renal function. Patient has history of CKD. Will hold Losartan, HCTZ , and Lasix. Qualifiers: Acute renal failure type: unspecified Qualified Code(s): N17.9 - Acute kidney failure, unspecified (4) CAD (coronary artery disease) Current visit: No Status: Chronic S/P CABG. Cont ASA, BB, and statin. Qualifiers: Coronary Disease-Associated Artery/Lesion type: unspecified vessel or lesion type [place] vs. transplanted heart: [place] heart Associated angina: without angina Qualified Code(s): I25.10 - Atherosclerotic heart disease of [place] coronary artery without angina pectoris (5) PAD (peripheral artery disease) Current visit: No Status: Chronic Stable. Cont home med. (6) Near syncope Current visit: Yes Status: Acute Probably due to hypotension, which may be caused by multiple hypertension medication and/or anti-arrhythmia medication. - We will continue IV fluid. - We will hold some HTN medication - Closely follow-up of BP level. - Consult cardiology for further anti-arrhythmia medication management. (7) A-fib Current visit: Yes Status: Acute Heart rate is well controlled. On Eliquis for anticoagulation. Qualifiers: Atrial fibrillation type: chronic Qualified Code(s): I48.2 - Chronic atrial fibrillation Internal Medicine - H&P: HPI Chief complaint: Dizziness Admitted From: Home Plans for Post Hospital Care: Home History of present illness: Mr. Chavez is a 72 year old male present to ER for dizziness. Patient has history of A. fib on multiple rate control and rhythm control medication. He feel dizzy this morning. He checked his blood pressure which is at 69 level, he called his cardiology office (Dr Tafoya's office) and was advised to drink water and to go to emergency room. In the emergency room, his BP is within normal limits. His dizziness has improved. However, patient was found elevated troponin and increased the creatinine level. Patient was admitted for further management. Past Med Surg Social Fam HX - Past Medical History Medical history: atrial fibrillation, coronary artery disease, hypertension Psychiatric history: no psych history - Past Surgical History Surgical History: angioplasty/stent, cataract, coronary bypass (CABG), herniorrhaphy, LE stent(s), splenectomy, other (Removal of right testicle due to testicular cancer) - Social History Smoking Status: Former smoker Smokeless Tobacco Status: No Alcohol use: none Drug use: none - Family History Mother Family Member Ethnicity: Non- Living Status: Hx Family Cardiac Disorders: Yes ([place]) Father Family Member Ethnicity: Non- Living Status: Hx Family Cardiac Disorders: Yes (ND) Internal Medicine - H&P: Meds Aspirin 81 mg PO DAILY 07/20/16 [History] Losartan/Hydrochlorothiazide [Hyzaar 100-25 Tablet] 1 tab PO DAILY 07/20/16 [ History] Tamsulosin [Flomax] 0.8 mg PO DAILY 07/20/16 [History] Amiodarone [Cordarone] 400 mg PO DAILY 02/22/17 [History] Apixaban [Eliquis] 5 mg PO BID 02/22/17 [History] Digoxin [Lanoxin] 0.125 mg PO DAILY 02/22/17 [History] Furosemide [Lasix] 40 mg PO DAILY 02/22/17 [History] Metoprolol XL (24 HR) Succ [Toprol XL] 100 mg PO DAILY 02/22/17 [History] Potassium Chloride [Klor-Con 10] 10 meq PO DAILY 04/05/17 [History] Allergies Penicillins Adverse Reaction (Verified 04/05/17 14:23) See Comments randa ramipril [From Altace] Adverse Reaction (Verified 04/05/17 14:23) Cough Pddnwix-Hac-Igf Reductase Inhibitor [Statins] Adverse Reaction (Verified 14:23) Muscle Pain All Systems PM: A 10-system review of systems was performed and is negative for pertinent findings except as documented above in the HPI. - Constitutional Vitals: Temp Pulse Resp BP Pulse Ox 97.6 F 66 18 135/75 96 04/05/17 19:30 04/05/17 19:30 04/05/17 19:30 04/05/17 19:30 04/05/17 19:30 General appearance: Present: A&O X 3, no acute distress, answers questions appropriately - Head Head exam: Present: atraumatic, normocephalic - Eye Eye exam: Present: PERRL, conjuntiva pink, sclera anicteric Pupils: Present: PERRL - Neck Neck exam general surgery: Present: supple, trachea midline. Absent: lymphadenopathy - Respiratory Respiratory exam: Present: CTAB. Absent: accessory muscle use, rales, rhonchi, wheezes - Cardiovascular Cardiovascular exam: Present: RRR, +S1, +S2. Absent: diastolic murmur, gallop, rubs, systolic murmur - GI/Abdominal GI/Abdominal exam: Present: normal bowel sounds, soft, no peritoneal signs. Absent: distended, tenderness - Extremities Exam Extremities exam: Present: warm, radial pulses palpable and symetrical. Absent : calf tenderness, cyanotic, pedal edema - Neurological Exam Neurological exam: Present: CN II-XII intact, oriented X3, no focal deficits. Absent: pronater drift, facial droop, speech deficit - Skin Skin exam: Present: dry, intact Internal Med - H&P Results - Labs CBC & Chem 7: 04/05/17 15:34 04/05/17 15:34
[2017-04-05] MEDS: APIXABAN 5 MG TABLET PO SCH (20:38)
[2017-04-05] MEDS: 0.9 % Sodium Chloride 1,000 ML IVC SCH (21:15)
[2017-04-06 01:44] LABS: Basophils # 0.1 K/mcL (0.0-0.2); Basophils % 0.6 %; Eosinophils # 0.1 K/mcL (0.0-0.6); Eosinophils % 1.5 %; Hematocrit 43.2 % (37.5-50.1); Immature Granulocytes % 0.7 % (0-4); Lymphocytes # 1.9 K/mcL (0.6-4.6); Lymphocytes % 22.9 %; Mean Corpuscular HGB Conc 32.4 g/dL (31.6-35.5); Mean Corpuscular Hemoglobin 30.3 pg (28.0-33.3); Mean Corpuscular Volume 93.5 fL (83.0-100.0); Mean Platelet Volume 10.6 fL (9.4-12.4); Monocytes # 0.8 K/mcL (0.0-1.3); Monocytes % 9.7 %; Neutrophils # 5.4 K/mcL (1.6-8.9); Platelet Count 169 K/mcL (140-400); Red Blood Count 4.62 M/mcL (4.19-5.50); Red Cell Distribution Width 15.3 % (11.5-14.5); Segmented Neutrophils % 64.6 %
[2017-04-06 01:56] LABS: Calcium 8.7 mg/dL (8.6-10.8); Magnesium 1.7 mg/dL (1.6-2.6); Potassium 3.4 mEq/L (3.5-4.5)
[2017-04-06] MEDS: APIXABAN 5 MG TABLET PO SCH ×2 (08:39→21:02)
[2017-04-06] MEDS: Aspirin 81 MG TAB.CHEW PO SCH (08:39)
[2017-04-06] MEDS: Metoprolol XL (24 HR) Succ 50 MG TAB.ER.24H PO SCH (08:39)
[2017-04-06] MEDS: *HR* Amiodarone 200 MG TABLET PO SCH (08:39)
[2017-04-06] MEDS: 0.9 % Sodium Chloride 1,000 ML IVC SCH ×2 (08:40→21:02)
--- NOTE | 2017-04-06 08:53 | Cardiology Consult Note ---
Date of Encounter: 04/06/17 Time of Encounter: 08:20 Assessment and Plan (1) Elevated troponin Current Visit: Yes Status: Acute Mild, adynamic troponin elevation in the setting of SONNY and hypotension. Likely secondary to demand ischemia. Chest pain free, no ischemic ECG changes. Recent [facility] January 2017 demonstrated 2/3 patent bypass grafts (no significant change from [facility] ), medical mgmt recommended. Recent TTE 03/24/17 showed improved LVEF, 60%, compared to prior study, EF 15-20% in January 2017. Continue home medications including asa and betablocker. Hx of intolerance to statin therapy. No further cardiac testing warranted at this time. (2) SONNY (acute kidney injury) Current Visit: Yes Status: Acute SCr 2.54, GFR 25 upon admission. Baseline normal kidney function. SONNY likely secondary to dehydration, hypotension, and urinary retention. Reported SBP in the 60's at home prior to admission. Avoid nephrotoxins, agree with IVF. Agree with holding Losartan/HCTZ. Continue to monitor BP. (3) A-fib Current Visit: Yes Status: Acute Hx of PAF on Eliquis. Prior ablation in 2012. Telemetry review: avg HR=76 afib. No significant event noted. Patient states HR have been controlled at home. Recent SHIVAM/DCCV with early recurrence of afib. Recent HM demonstrates baseline AF, rate controlled in the 80's. Continue home CV medications for now including amiodarone and Toprol XL. Recommend holding digoxin until renal function normalizes. Possible referral to EP as outpatient for ablation--has upcoming appt. with Dr. Tafoya to discuss. Qualifiers: Atrial fibrillation type: paroxysmal Qualified Code(s): I48.0 - Paroxysmal atrial fibrillation Discussion w patient/family: The assessment and plan as outlined above was discussed with the patient and/or family members who expressed understanding and agreement. All questions were answered. Thank you for involving us in the care of your patient. Please call with any questions. The patient will be discussed and reviewed with Dr. Hernandez; changes to be made accordingly. History of Present Illness Consult date: 04/06/17 Requesting physician: Tho Wyatt Consult reason: Elevated troponin Chief complaint: Dizziness, hypotension History of present illness: Mr. Chavez is a 72 year old male with PMHx significant for CAD, prior 3V CABG ( [place], 2004), PAF s/p ablation ([place], 2013), LE PAD s/p LE intervention who presented to the hospital with 1 day history of dizziness and hypotension. He reports he called Cardiology office due to SBP readings in the 60s, he was then instructed to go to the ED. He reports difficulty with urine stream the past 3 days--follows with Urology. Prior to episode of dizziness patient had been working on his new attache outside. Recent testing: [facility] 07/20/2016: EF 50%. 2/3 patent bypass grafts. Severe three-vessel CAD. 90 % stenosis in small diagonal branch that fills via LEON graft and supplies faint collaterals to a higher small diagonal or OM that may account for abnormal stress test. TTE 02/12/17: LVEF 15-20% [facility] 02/14/17: s/p 2 of 3 patent bypass grafts--no significant changes from [facility] 2015 SHIVAM/CV 02/22/17: severe LV/RV dysfunction, negative for thrombus. Successful DCCV from AF to NSR after 1 attempt 03/20/17: baseline atrial fibrillation throughout recording, avg HR=84. Several pauses, longest 2 seconds, occasional PVC. No symptoms. TTE 03/24/17: LVEF 60%, hypokinesis of the basal inferior and basal inferior lateral wall, mild-moderate cLVH, mildly dilated LA and RA Past Med Surg Social Fam HX - Past Medical History Attestation: Yes The following information was validated with the patient. Source: patient, old records reviewed Medical history: atrial fibrillation, cardiomyopathy (recovered, likely non- ischemic), coronary artery disease, hyperlipidemia, hypertension, other (BPH) Psychiatric history: no psych history - Past Surgical History Surgical History: angioplasty/stent, cataract, coronary bypass (CABG), herniorrhaphy, LE stent(s), splenectomy, other (TURP) - Social History Smoking Status: Former smoker Smokeless Tobacco Status: No Alcohol use: none Drug use: none - Family History Mother History Unknown: Yes Family Member Ethnicity: Non- Living Status: Hx Family Cardiac Disorders: Yes ([place]) Father History Unknown: Yes Family Member Ethnicity: Non- Living Status: Hx Family Cardiac Disorders: Yes (NE) Medications and Allergies Aspirin 81 mg PO DAILY 07/20/16 [History] Losartan/Hydrochlorothiazide [Hyzaar 100-25 Tablet] 1 tab PO DAILY 07/20/16 [ History] Tamsulosin [Flomax] 0.8 mg PO DAILY 07/20/16 [History] Amiodarone [Cordarone] 400 mg PO DAILY 02/22/17 [History] Apixaban [Eliquis] 5 mg PO BID 02/22/17 [History] Digoxin [Lanoxin] 0.125 mg PO DAILY 02/22/17 [History] Furosemide [Lasix] 40 mg PO DAILY 02/22/17 [History] Metoprolol XL (24 HR) Succ [Toprol XL] 100 mg PO DAILY 02/22/17 [History] Potassium Chloride [Klor-Con 10] 10 meq PO DAILY 04/05/17 [History] Allergies Penicillins Adverse Reaction (Verified 04/05/17 14:23) See Comments welts ramipril [From Altace] Adverse Reaction (Verified 04/05/17 14:23) Cough Ocvbtrd-Kfc-Tgt Reductase Inhibitor [Statins] Adverse Reaction (Verified 14:23) Muscle Pain All Systems Review: A 10-system review of systems was performed and is negative for pertinent findings except as documented above in the HPI. - Cardiovascular Cardiovascular: as per HPI Physical Examination Vital Signs, Last 4 Hours Temp Pulse Resp BP Pulse Ox 04/06/17 07:57 97.4 F L 77 18 148/85 97 General: Conversant, No Apparent Distress HEENT: Atraumatic, Normocephaly Cardiac: Other (irregularly irregular) Lungs: Normal Breath Sounds Neuro: Alert and responsive Abdomen: Soft Skin: No rashes noted on visualized skin Musculoskeletal: No Chest Wall Tenderness Extremities: No Edema, Normal Pulses Results 04/06/17 00:53 04/06/17 00:53 Lab Results 04/05/17 04/06/17 04/06/17 21:52 00:53 00:53 WBC 8.3 Hgb 14.0 Hct 43.2 Plt Count 169 Sodium Potassium Chloride Carbon Dioxide BUN Creatinine Glucose Calcium Magnesium Troponin I 0.07 H* 0.07 H* 04/06/17 04/06/17 00:53 06:22 WBC Hgb Hct Plt Count Sodium 141 Potassium 3.4 L Chloride 100 Carbon Dioxide 32 H BUN 37 H Creatinine 2.26 H Glucose 95 Calcium 8.7 Magnesium 1.7 Troponin I 0.07 H* - Imaging and Cardiology Echo: report reviewed Cardiac cath: report reviewed Other Results: 12 hour tele: avg HR=76 afib. No significant event noted. - EKG Interpretation EKG results cardiology: personally reviewed Consult Discharge Plan - Plan Referrals: Chad Srivastava MD [Primary Care Provider] -
[2017-04-06] MEDS ORDERED: *HR* Digoxin 0.125 MG TABLET PO SCH (09:00)
--- NOTE | 2017-04-06 09:57 | Internal Med Progress Note ---
<Kobe Garcia - Last Filed: 04/06/17 09:55> Date of Encounter: 04/06/17 Time of Encounter: 08:30 - Assessment and plan (1) SONNY (acute kidney injury) Current Visit: Yes Status: Acute Assessment and plan: SCr was elevated on admission at 2.54, GFR 25 upon admission. -Patient's creatinine has decreased to 2.26. He does admit having a history of BPH. Denies having any problems urinating. -Patient's baseline kidney function is normal. -SONNY likely secondary to dehydration, hypotension, and urinary retention. -Urinalysis and retroperitoneal ultrasound have been ordered. -Continue hydration and avoid number toxins. -Blood pressure medications have been held. Continue to monitor blood pressure and creatinine. (2) Hypotension Current Visit: Yes Status: Acute Assessment and plan: Patient's home measurement of blood pressure showed a systolic reading of 69. -Patient's blood pressure on admission was 119/85. -Antihypertensive medications were held. -Patient normally takes losartan, Lasix, and hydrochlorothiazide. -Blood pressures morning was 148/85. Qualifiers: Qualified Code(s): I95.9 - Hypotension, unspecified (3) A-fib Current Visit: Yes Status: Acute Assessment and plan: Patient's heart rate is stable this morning at 77. -Continue to monitor vitals. -Continue home medications. Qualifiers: Atrial fibrillation type: paroxysmal Qualified Code(s): I48.0 - Paroxysmal atrial fibrillation (4) Elevated troponin Current Visit: Yes Status: Acute Assessment and plan: Patient's troponin levels were elevated on admission. -Increase troponin is likely secondary to demand ischemia. -Troponin today is 0.07, has remained consistent. -Cardiology has been consulted, and they state that no further cardiac testing is warranted at this time. (5) DVT prophylaxis Current Visit: No Status: Acute Assessment and plan: Patient is on a Eliquis. - Subjective Interval history: Patient was seen and examined at bedside this morning. Patient says that he is feeling much better yesterday. He no longer complains of dizziness. Patient states that yesterday he was mowing his grass, and that he experienced some dizziness. He went inside to check his blood pressure, and obtained a systolic blood pressure reading of 69. He called his tinner helper, who told him to drink a lot of water and then go to the ER. The time he got into the ER, his blood pressure had increased to 119/85. Patient's blood pressure has not decreased since. Patient denies ever having an incident like this before. Patient's creatinine was high on admission, but has since gone down. Initially , her creatinine was 2.54, but has decreased to 2.26. Patient does admit to having a history of BPH. He has drank approximately 1 L this morning of water. He states that he went to the bathroom 3 times last night, and had no difficulty urinating. He currently denies shortness of breath, dizziness, chest pain, nausea, vomiting, fever or chills. He has no complaints at this time. - Constitutional Vitals: Temp Pulse Resp BP Pulse Ox 97.4 F L 77 18 148/85 97 04/06/17 07:57 04/06/17 07:57 04/06/17 07:57 04/06/17 07:57 04/06/17 07:57 General appearance: Present: A&O X 3, no acute distress, answers questions appropriately - Respiratory Respiratory exam: Present: CTAB. Absent: accessory muscle use, rales, rhonchi, wheezes - Cardiovascular Cardiovascular exam: Present: RRR, +S1, +S2. Absent: diastolic murmur, gallop, rubs, systolic murmur - GI/Abdominal GI/Abdominal exam: Present: normal bowel sounds, soft, no peritoneal signs. Absent: distended, tenderness - Psychiatric Psychiatric exam: Present: normal affect, normal mood Internal Medicine: Result - Labs CBC & Chem 7: 04/06/17 00:53 04/06/17 00:53 Labs: Short CBC 04/06/17 Range/Units 00:53 WBC 8.3 (4.3-11.1) K/mcL Hgb 14.0 (12.9-16.9) g/dL Hct 43.2 (37.5-50.1) % Plt Count 169 (140-400) K/mcL Neutrophils # 5.4 (1.6-8.9) K/mcL BMP 04/06/17 00:53 Sodium 141 Potassium 3.4 L Chloride 100 Carbon Dioxide 32 H BUN 37 H Creatinine 2.26 H Glucose 95 Calcium 8.7 Cardiac Enzymes 04/05/17 04/06/17 04/06/17 Range/Units 21:52 00:53 06:22 Troponin I 0.07 H* 0.07 H* 0.07 H* (0-0.03) ng/mL Consult Discharge Plan - Plan Referrals: Chad Srivastava MD [Primary Care Provider] - (web request sent on 04/06/17 ) <Ryan Jj H - Last Filed: 04/06/17 13:24> Date of Encounter: 04/06/17 - Constitutional Vitals: Temp Pulse Resp BP Pulse Ox 97.4 F L 77 18 148/85 97 04/06/17 07:57 04/06/17 07:57 04/06/17 07:57 04/06/17 07:57 04/06/17 07:57 Internal Medicine: Result - Labs CBC & Chem 7: 04/06/17 00:53 04/06/17 00:53 Labs: Short CBC 04/06/17 Range/Units 00:53 WBC 8.3 (4.3-11.1) K/mcL Hgb 14.0 (12.9-16.9) g/dL Hct 43.2 (37.5-50.1) % Plt Count 169 (140-400) K/mcL Neutrophils # 5.4 (1.6-8.9) K/mcL BMP 04/06/17 00:53 Sodium 141 Potassium 3.4 L Chloride 100 Carbon Dioxide 32 H BUN 37 H Creatinine 2.26 H Glucose 95 Calcium 8.7 Cardiac Enzymes 04/05/17 04/06/17 04/06/17 Range/Units 21:52 00:53 06:22 Troponin I 0.07 H* 0.07 H* 0.07 H* (0-0.03) ng/mL - Attending Attestation ARF 2ry to severe dehydration associated to hypotension IVF Hold Losartan HCTZ and lasix hold digoxin Hypokalemia, replete I examined this patient and my medical decision-making was reviewed with the Resident Physician. I agree with the documented findings, disposition and treatment plan as described except to the extent set forth below.
--- NOTE | 2017-04-06 15:08 | Electrocardiograph Report ---
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
[2017-04-07 06:20] LABS: BUN/Creatinine Ratio 20 (6-26); Calcium 8.2 mg/dL (8.6-10.8); Carbon Dioxide 29 mEq/L (19-29); Chloride 105 mEq/L (98-109); Glucose 98 mg/dL (70-99); Osmolality,Calculated 297 (280-300); Potassium 3.5 mEq/L (3.5-4.5); Sodium 141 mEq/L (136-145); eGFR For African Americans > 60 (> 60); eGFR For Non-African Americans 55 (> 60)
[2017-04-07 06:21] LABS: Blood Urea Nitrogen 26 mg/dL (8-26)
[2017-04-07 06:23] LABS: Basophils % 0.5 %; Eosinophils # 0.2 K/mcL (0.0-0.6); Hematocrit 37.5 % (37.5-50.1); Immature Granulocytes % 0.5 % (0-4); Lymphocytes # 1.5 K/mcL (0.6-4.6); Lymphocytes % 18.3 %; Mean Corpuscular HGB Conc 33.1 g/dL (31.6-35.5); Mean Corpuscular Hemoglobin 30.7 pg (28.0-33.3); Mean Corpuscular Volume 92.8 fL (83.0-100.0); Mean Platelet Volume 10.6 fL (9.4-12.4); Monocytes # 0.8 K/mcL (0.0-1.3); Monocytes % 10.1 %; Neutrophils # 5.6 K/mcL (1.6-8.9); Platelet Count 148 K/mcL (140-400); Red Blood Count 4.04 M/mcL (4.19-5.50); Segmented Neutrophils % 68.6 %
[2017-04-07 06:26] LABS: Hemoglobin 12.4 g/dL (12.9-16.9)
[2017-04-07 07:25] VITALS: BP 148/94
[2017-04-07] MEDS: *HR* Amiodarone 200 MG TABLET PO SCH (08:52)
[2017-04-07] MEDS: APIXABAN 5 MG TABLET PO SCH (08:52)
[2017-04-07] MEDS: Metoprolol XL (24 HR) Succ 50 MG TAB.ER.24H PO SCH (08:52)
[2017-04-07] MEDS: Aspirin 81 MG TAB.CHEW PO SCH (08:52)
[2017-04-07] MEDS: 0.9 % Sodium Chloride 1,000 ML IVC SCH (08:54)
--- NOTE | 2017-04-07 10:32 | Discharge Summary ---
<Kobe Garcia - Last Filed: 04/07/17 10:29> Date of Encounter: 04/07/17 Time of Encounter: 09:00 - Discharge Diagnosis (1) SONNY (acute kidney injury) Priority: Primary Status: Acute Comments: SCr was elevated on admission at 2.54, GFR 25 upon admission. He does admit having a history of BPH. Denies having any problems urinating. -Today, patient's creatinine has improved. It is currently 1.28. -Patient's baseline kidney function is normal. -SONNY was likely secondary to dehydration, hypotension, and urinary retention. -Retroperitoneal ultrasound was ordered, and showed moderate to large postvoid residual volume, 154 mL. It also demonstrated greater than 50% postvoid volume. Right bladder diverticulum. (2) Hypotension Priority: Secondary Status: Acute Comments: Patient's home measurement of blood pressure showed a systolic reading of 69. -Patient's blood pressure on admission was 119/85. -Antihypertensive medications were held. -Patient normally takes losartan, Lasix, and hydrochlorothiazide. -Blood pressure this morning was 148/94. Qualifiers: Qualified Code(s): I95.9 - Hypotension, unspecified (3) A-fib Priority: Secondary Status: Acute Comments: Patient's heart rate is stable this morning at 82. -Continue to monitor vitals. -Continue home medications. Qualifiers: Atrial fibrillation type: paroxysmal Qualified Code(s): I48.0 - Paroxysmal atrial fibrillation (4) Elevated troponin Priority: Secondary Status: Acute Comments: Patient's troponin levels were elevated on admission. -Increase troponin is likely secondary to demand ischemia. -Troponin initially was 0.07, has remained consistent. -Cardiology was consulted, and they state that no further cardiac testing is warranted at this time. (5) DVT prophylaxis Priority: Secondary Status: Acute Comments: Patient is on a Eliquis. - Discharge Medications Home Medications: Aspirin 81 mg PO DAILY 07/20/16 [History] Losartan/Hydrochlorothiazide [Hyzaar 100-25 Tablet] 1 tab PO DAILY 07/20/16 [ History] Tamsulosin [Flomax] 0.8 mg PO DAILY 07/20/16 [History] Amiodarone [Cordarone] 400 mg PO DAILY 02/22/17 [History] Apixaban [Eliquis] 5 mg PO BID 02/22/17 [History] Digoxin [Lanoxin] 0.125 mg PO DAILY 02/22/17 [History] Furosemide [Lasix] 40 mg PO DAILY 02/22/17 [History] Metoprolol XL (24 HR) Succ [Toprol XL] 100 mg PO DAILY 02/22/17 [History] Potassium Chloride [Klor-Con 10] 10 meq PO DAILY 04/05/17 [History] Allergies/Adverse Reactions: Allergies Penicillins Adverse Reaction (Verified 04/05/17 14:23) See Comments welts ramipril [From Altace] Adverse Reaction (Verified 04/05/17 14:23) Cough [id number] Reductase Inhibitor [Statins] Adverse Reaction (Verified 14:23) Muscle Pain Date of admission: 04/06/17 14:47 Primary care physician: Chad Srivastava MD Discharging clinician: Koeb Garcia Anticipated date of discharge: 04/07/17 - Patient Status Disposition: Home, Self-Care Condition: Good Overall status at discharge: patient is progressing back to baseline - Discharge Instructions Instructions: Atrial Fibrillation (DC), Dehydration (DC), How to Take a Blood Pressure (DC) Follow Up With: Chad Srivastava MD [Primary Care Provider] - (web request sent on 04/06/17 ) Additional Instructions: Resume hypertensive medications: Losartan, Lasix, and hydrochlorothiazide. Avoid dehydration. - Diet and Activity Activity: resume usual activities as tolerated Diet: advance to your usual diet Hospital course: Mr. Chavez is a 72 year old male who initially presented to the ED with chief complaint of low blood pressure. Patient states that he was in the middle of cutting grass when he felt somewhat dizzy. He went inside and checked his blood pressure, and gave him reading of 69. Patient called his research affiliate, who told him to drink a lot of water and then go to the ER. By the time he got into the ER, his blood pressure had increased to 119/85. Patient's blood pressure has not decreased since. Patient denies ever having an incident like this before. Patient's creatinine was high on admission, but has since gone down. Initially, her creatinine was 2.54, but it has decreased to 1.28. Patient does admit to having a history of BPH. Initially, the possibility of urinary retention was considered for the possible reason for this patient's acute renal failure. Retroperitoneal ultrasound was ordered, and showed moderate to large postvoid residual volume at 154 mL. It showed greater than 50 % re-void volume, and a right bladder diverticulum. Patient's condition is stable at discharge. He denies having any dizziness, chest pain, nausea, vomiting, fever, or chills. Patient's blood pressure medications were initially held on admission. The patient will resume his blood pressure medications home. He will be advised to avoid dehydration in the future. - Time Spent with Patient Total time spent providing and/or coordinating discharge services: Greater than 30 minutes (43 minutes) - Constitutional Vitals: Temp Pulse Resp BP Pulse Ox 97.6 F 82 18 148/94 97 04/07/17 07:25 04/07/17 07:25 04/07/17 07:25 04/07/17 07:25 04/07/17 07:25 General appearance: Present: no acute distress, answers questions appropriately - Head Head exam: Present: atraumatic, normocephalic - Neck Neck exam general surgery: Present: supple, trachea midline. Absent: lymphadenopathy - Respiratory Respiratory exam: Present: CTAB. Absent: accessory muscle use, rales, rhonchi, wheezes - Cardiovascular Cardiovascular exam: Present: RRR, +S1, +S2. Absent: diastolic murmur, gallop, rubs, systolic murmur - GI/Abdominal GI/Abdominal exam: Present: normal bowel sounds, soft, no peritoneal signs. Absent: distended - Extremities Exam Extremities exam: Present: warm, radial pulses palpable and symetrical - Skin Skin exam: Present: dry, intact <Ryan Jj H - Last Filed: 04/07/17 10:50> Date of Encounter: 04/07/17 Date of admission: 04/06/17 14:47 Primary care physician: Chad Srivastava MD Hospital course: Mr. Chavez is a 72 year old male - Time Spent with Patient Total time spent providing and/or coordinating discharge services: - Constitutional Vitals: Temp Pulse Resp BP Pulse Ox 97.6 F 82 18 148/94 97 04/07/17 07:25 04/07/17 07:25 04/07/17 07:25 04/07/17 07:25 04/07/17 07:25 - Attending Attestation Acute renal failure likely secondary to dehydration exacerbated by the use of losartan hydrochlorothiazide and Lasix. Stable to be discharged. May follow with urology as needed I examined this patient and my medical decision-making was reviewed with the Resident Physician. I agree with the documented findings, disposition and treatment plan as described except to the extent set forth below.
== END 2017-04-07 11:15 | disposition home or self-care (01) | DRG 683 ==
LOC: EMEROO 13:59 → 2ANU 13:59
PROVIDERS: ADMIT Internal Medicine; ATTEND Internal Medicine

== ENCOUNTER 2017-09-14 11:44 | Observation (INO) ==
[2017-09-14 13:05] LABS: Hemoglobin 14.9 g/dL (12.9-16.9)
[2017-09-14 13:34] LABS: Bilirubin,Urine Negative (Negative); Blood,Urine Negative (Negative); Clarity,Urine Clear (Clear); Color,Urine Yellow (Yellow); Glucose,Urine (UA) Normal (Normal); Ketones,Urine Negative (Negative); Leukocyte Esterase,Urine Negative (Negative); Nitrite,Urine Negative (Negative); Protein,Urine Negative (Neg-Trace); Specific Gravity,Urine 1.014 (1.010-1.025); Urobilinogen,Urine Normal (Normal)
[2017-09-14 15:24] LABS: Basophils # 0.1 K/mcL (0.0-0.2); Basophils % 0.8 %; Eosinophils # 0.2 K/mcL (0.0-0.6); Eosinophils % 3.1 %; Hematocrit 43.6 % (37.5-50.1); Hemoglobin 14.2 g/dL (12.9-16.9); Immature Granulocytes % 0.3 % (0-4); Lymphocytes # 1.4 K/mcL (0.6-4.6); Lymphocytes % 19.7 %; Mean Corpuscular HGB Conc 32.6 g/dL (31.6-35.5); Mean Corpuscular Hemoglobin 30.1 pg (28.0-33.3); Mean Corpuscular Volume 92.4 fL (83.0-100.0); Mean Platelet Volume 10.3 fL (9.4-12.4); Monocytes # 0.6 K/mcL (0.0-1.3); Monocytes % 8.8 %; Neutrophils # 4.8 K/mcL (1.6-8.9); Platelet Count 169 K/mcL (140-400); Red Blood Count 4.72 M/mcL (4.19-5.50); Segmented Neutrophils % 67.3 %
[2017-09-14 15:49] LABS: Alanine Aminotransferase 30 Units/L (7-52); Albumin 3.5 g/dL (3.5-5.7); Albumin/Globulin Ratio 1.5 (1.1-2.2); Alkaline Phosphatase 90 Units/L (34-104); Aspartate Amino Transferase 22 Units/L (13-39); BUN/Creatinine Ratio 10 (6-26); Bilirubin,Indirect 0.5 mg/dL (0.0-1.2); Bilirubin,Total 0.5 mg/dL (0.3-1.0); Blood Urea Nitrogen 11 mg/dL (8-23); Calcium 8.9 mg/dL (8.6-10.3); Carbon Dioxide 28 mEq/L (23-29); Chloride 105 mEq/L (98-107); Globulin 2.3 g/dL (2.4-3.5); Glucose 88 mg/dL (70-105); Osmolality,Calculated 289 (280-300); Potassium 3.8 mEq/L (3.5-5.1); Sodium 140 mEq/L (136-145); Total Protein 5.8 g/dL (6.4-8.9); eGFR For African Americans > 60 (> 60); eGFR For Non-African Americans > 60 (> 60)
--- NOTE | 2017-09-14 16:56 | Emergency Department Note ---
Disposition Clinical Impression: Bladder stone, Prostatic disease, Hepatic cyst GI bleed Qualifiers: GI bleed type/associated pathology: anorectal hemorrhage Qualified Code(s): K62.5 - Hemorrhage of anus and rectum Disposition: Admitted As Inpatient Condition: Fair Time of Disposition: 18:00 General Adult HPI - General Chief complaint: ED General Medical Stated complaint: UTI/Constipation, could be his heart Time Seen by Provider: 09/14/17 11:55 Source: patient, family Mode of arrival: ambulatory Limitations: no limitations Nursing Notes Reviewed: Yes Vital Signs Reviewed: Yes - History of Present Illness HPI Narrative: 72-year-old male presents with complaint of constipation and difficulty urinating. Patient complains of bright red blood per rectum is painless and appears with stools. Patient believes that it may be from hemorrhoids. Patient has a history of colonic polyps that were difficult to extract and is scheduled to have them extracted 3 months from now. Patient states that he has been on stool softeners and fiber supplementation but his bowel movements are becoming less and less. His ability to urinates also getting more difficult. Patient denies of any abdominal pain or pain symptoms currently. Patient is an eloquis Pain Scale: 0 - Related Data Home Medications Medication Instructions Recorded Confirmed Aspirin 81 mg PO QPM 07/20/16 09/14/17 Tamsulosin [Flomax] 0.8 mg PO QAM 07/20/16 09/14/17 Amiodarone [Cordarone] 400 mg PO QAM 02/22/17 09/14/17 Apixaban [Eliquis] 5 mg PO BID 02/22/17 09/14/17 Furosemide [Lasix] 40 mg PO QAM 02/22/17 09/14/17 Metoprolol XL (24 HR) Succ [Toprol 50 mg PO QPM 02/22/17 09/14/17 Xl] Potassium Chloride [Klor-Con 10] 10 meq PO QAM 04/05/17 09/14/17 Potassium Chloride [Klor-Con 10] 20 meq PO QPM 09/14/17 09/14/17 Previous Rx's Medication Instructions Recorded Linaclotide [Linzess] 145 mcg PO DAILY #30 capsule 09/15/17 Allergies Allergy/AdvReac Type Severity Reaction Status Date / Time Penicillins AdvReac See Verified 04/05/17 14:23 Comments ramipril [From Altace] AdvReac Cough Verified 04/05/17 14:23 Ijrndlb-Ink-Pds Reductase AdvReac Muscle Pain Verified 04/05/17 14:23 Inhibitor [Statins] All systems ED: reviewed and negative except as stated. Review of Systems: As Per HPI Constitutional: Denies: fever, weakness Eyes: Denies: vision change ENT ED: Denies: congestion Cardiovascular: Denies: chest pain, palpitations Respiratory: Denies: cough, dyspnea Gastrointestinal: Reports: hematochezia. Denies: abdominal pain, nausea, vomiting, diarrhea Past Medical History - Past Medical History Attestation: Yes The following information was validated with the patient. Source: patient, nursing notes reviewed Medical history: Reports: arthritis, atrial fibrillation, cardiomyopathy, coronary artery disease, hyperlipidemia, hypertension, other Surgical history: Reports: angioplasty/stent, cataract, coronary bypass (CABG), herniorrhaphy, LE stent(s), splenectomy, other Psychiatric history: Reports: no psych history - Social History Smoking Status: Former smoker Smokeless Tobacco Status: No Alcohol use: Reports: none Drug use: Reports: none Physical Exam Vital Signs Temperature 98.1 F 09/14/17 11:47 Pulse Rate 58 09/14/17 11:47 Respiratory Rate 18 09/14/17 11:47 Blood Pressure 139/81 09/14/17 11:47 O2 Sat by Pulse Oximetry 98 09/14/17 11:47 Temperature 97.6 F 09/14/17 23:32 Pulse Rate 57 09/14/17 23:32 Respiratory Rate 16 09/14/17 23:32 Blood Pressure 180/81 09/14/17 23:32 O2 Sat by Pulse Oximetry 97 09/14/17 23:32 Oxygen Delivery Oxygen Delivery Room Air 72-year-old male who is alert and oriented 3 and in no acute distress. Patient is nontoxic appearing. Patient is afebrile and has normal vital signs. - General Limitations: no limitations General appearance: alert - Head Head exam: atraumatic, normocephalic, normal inspection - Eye Eye exam: Present: normal appearance, PERRL, EOMI - ENT ENT exam: normal exam, normal oropharynx, mucous membranes moist - Neck Neck exam: Present: normal inspection, full ROM, trachea midline - Chest Chest inspection: Present: normal inspection, symmetric chest wall rise - Respiratory Respiratory exam: Present: normal lung sounds bilaterally - Cardiovascular Cardiovascular exam: Present: regular rate, normal rhythm, normal heart sounds - Abdominal Exam Abdominal exam: Present: soft, Non-Tender. Absent: tenderness, distention, guarding, rebound, rigidity - Rectal Exam Physician In Private Practice present during exam: Yes Rectal exam: Present: normal rectal tone, heme (+) stool, bloody stool, hemorrhoids - Extremities Exam Extremities exam: Present: normal inspection, full ROM, normal capillary refill. Absent: tenderness, pedal edema Course Vital Signs Temperature 98.1 F 09/14/17 11:47 Pulse Rate 58 09/14/17 11:47 Respiratory Rate 18 09/14/17 11:47 Blood Pressure 139/81 09/14/17 11:47 O2 Sat by Pulse Oximetry 98 09/14/17 11:47 Temperature 98.6 F 09/16/17 04:15 Pulse Rate 59 09/16/17 04:15 Respiratory Rate 16 09/16/17 04:15 Blood Pressure 158/75 09/16/17 04:15 O2 Sat by Pulse Oximetry 93 09/16/17 04:15 Oxygen Delivery Oxygen Delivery Room Air Medical Decision Making - [facility] Narrative Medical decision making narrative: Painless GI bleeding: Possibly diverticulosis, hemorrhoids, colonic neoplasm. Polyps. Patient's labs are unremarkable. Patient's Hemoccult blood test is heme positive. CT abdomen and pelvis shows: Abdomen/Pelvis CT 09/14/17 14:50 IMPRESSION: 1. 6.6 mm bladder stone centrally. No definite hydroureter or hydronephrosis is seen to suggest recent passage of a ureteral stone. 2. Enlarged irregular appearing prostate gland protruding into the base of the bladder. A prostatic mass cannot be excluded 3. Probable multiple hepatic cysts 4. Normal appearing appendix 5. Right-sided bladder diverticulum of questionable clinical significance 6. Infiltration of the mesenteric centrally suggesting mesenteritis Current plan is for patient to be admitted for further evaluation for active rectal bleeding. patient understands and agrees to treatment and plan for admission. Patient states that he is thankful that he has a reason for his bleeding. Patient is hemodynamically stable and bleeding is mild per rectum. 1739: Dr. Bateman of gastroenterology states he looks up for the patient if he has a GI bleeding emergency. Patient is accepted for admission by Dr. Rebolledo the hospitalist - Medical Records Medical records reviewed: Yes I reviewed the patient's medical records. - Lab Data Lab results reviewed: Yes I reviewed the patient's lab results. Lab results narrative: Short CBC 09/14/17 09/14/17 Range/Units 15:13 12:57 WBC 7.2 (4.3-11.1) K/mcL Hgb 14.2 14.9 (12.9-16.9) g/dL Hct 43.6 46.0 (37.5-50.1) % Plt Count 169 (140-400) K/mcL Neutrophils # 4.8 (1.6-8.9) K/mcL BMP 09/14/17 Range/Units 15:13 Sodium 140 (136-145) mEq/L Potassium 3.8 (3.5-5.1) mEq/L Chloride 105 (98-107) mEq/L Carbon Dioxide 28 (23-29) mEq/L BUN 11 (8-23) mg/dL Creatinine 1.08 (0.70-1.30) mg/dL Glucose 88 (70-105) mg/dL Calcium 8.9 (8.6-10.3) mg/dL Liver Function 09/14/17 Range/Units 15:13 Total Bilirubin 0.5 (0.3-1.0) mg/dL Direct Bilirubin 0.0 (0.0-0.2) mg/dL AST 22 (13-39) Units/L ALT 30 (7-52) Units/L Alkaline Phosphatase 90 (34-104) Units/L Albumin 3.5 (3.5-5.7) g/dL Urine 09/14/17 Range/Units 13:10 Urine Color Yellow (Yellow) Urine Clarity Clear (Clear) Urine pH 6.0 (5.0-8.0) pH Units Ur Specific [place] 1.014 (1.010-1.025) Urine Protein Negative (Neg-Trace) mg/dL Urine Glucose (UA) Normal (Normal) mg/dL Result diagrams: 09/15/17 11:08 09/15/17 03:06 Lab Results 09/14/17 09/14/17 09/14/17 Range/Units 12:57 13:10 14:27 WBC (4.3-11.1) K/mcL RBC (4.19-5.50) M/mcL Hgb 14.9 (12.9-16.9) g/dL Hct 46.0 (37.5-50.1) % MCV (83.0-100.0) fL MCH (28.0-33.3) pg MCHC (31.6-35.5) g/dL RDW (11.5-14.5) % Plt Count (140-400) K/mcL MPV (9.4-12.4) fL Immature Gran % (0-4) % Seg Neutrophils % % Lymphocytes % % Monocytes % % Eosinophils % % Basophils % % Neutrophils # (1.6-8.9) K/mcL Lymphocytes # (0.6-4.6) K/mcL Monocytes # (0.0-1.3) K/mcL Eosinophils # (0.0-0.6) K/mcL Basophils # (0.0-0.2) K/mcL PT (9.4-12.1) Seconds INR Sodium (136-145) mEq/L Potassium (3.5-5.1) mEq/L Chloride (98-107) mEq/L Carbon Dioxide (23-29) mEq/L BUN (8-23) mg/dL Creatinine (0.70-1.30) mg/dL Est GFR ( Amer) (> 60) Est GFR (Non-Af Amer) (> 60) BUN/Creatinine Ratio (6-26) Glucose (70-105) mg/dL Calculated Osmolality (280-300) Calcium (8.6-10.3) mg/dL Total Bilirubin (0.3-1.0) mg/dL Direct Bilirubin (0.0-0.2) mg/dL Indirect Bilirubin (0.0-1.2) mg/dL AST (13-39) Units/L ALT (7-52) Units/L Alkaline Phosphatase (34-104) Units/L Serum Total Protein (6.4-8.9) g/dL Albumin (3.5-5.7) g/dL Globulin (2.4-3.5) g/dL Albumin/Globulin Ratio (1.1-2.2) Urine Color Yellow (Yellow) Urine Clarity Clear (Clear) Urine pH 6.0 (5.0-8.0) pH Units Ur Specific [place] 1.014 (1.010-1.025) Urine Protein Negative (Neg-Trace) mg/dL Urine Glucose (UA) Normal (Normal) mg/dL Urine Ketones Negative (Negative) mg/dL Urine Blood Negative (Negative) Urine Nitrite Negative (Negative) Urine Bilirubin Negative (Negative) Urine Urobilinogen Normal (Normal) mg/dL Ur Leukocyte Esterase Negative (Negative) Ur Culture Indicated? NO (NO) Stool Occult Blood Positive A (Negative) 09/14/17 09/14/17 09/14/17 Range/Units 15:13 15:13 21:49 WBC 7.2 (4.3-11.1) K/mcL RBC 4.72 (4.19-5.50) M/mcL Hgb 14.2 (12.9-16.9) g/dL Hct 43.6 (37.5-50.1) % MCV 92.4 (83.0-100.0) fL MCH 30.1 (28.0-33.3) pg MCHC 32.6 (31.6-35.5) g/dL RDW 14.0 (11.5-14.5) % Plt Count 169 (140-400) K/mcL MPV 10.3 (9.4-12.4) fL Immature Gran % 0.3 (0-4) % Seg Neutrophils % 67.3 % Lymphocytes % 19.7 % Monocytes % 8.8 % Eosinophils % 3.1 % Basophils % 0.8 % Neutrophils # 4.8 (1.6-8.9) K/mcL Lymphocytes # 1.4 (0.6-4.6) K/mcL Monocytes # 0.6 (0.0-1.3) K/mcL Eosinophils # 0.2 (0.0-0.6) K/mcL Basophils # 0.1 (0.0-0.2) K/mcL PT 14.0 H (9.4-12.1) Seconds INR 1.3 Sodium 140 (136-145) mEq/L Potassium 3.8 (3.5-5.1) mEq/L Chloride 105 (98-107) mEq/L Carbon Dioxide 28 (23-29) mEq/L BUN 11 (8-23) mg/dL Creatinine 1.08 (0.70-1.30) mg/dL Est GFR ( Amer) > 60 (> 60) Est GFR (Non-Af Amer) > 60 (> 60) BUN/Creatinine Ratio 10 (6-26) Glucose 88 (70-105) mg/dL Calculated Osmolality 289 (280-300) Calcium 8.9 (8.6-10.3) mg/dL Total Bilirubin 0.5 (0.3-1.0) mg/dL Direct Bilirubin 0.0 (0.0-0.2) mg/dL Indirect Bilirubin 0.5 (0.0-1.2) mg/dL AST 22 (13-39) Units/L ALT 30 (7-52) Units/L Alkaline Phosphatase 90 (34-104) Units/L Serum Total Protein 5.8 L (6.4-8.9) g/dL Albumin 3.5 (3.5-5.7) g/dL Globulin 2.3 L (2.4-3.5) g/dL Albumin/Globulin Ratio 1.5 (1.1-2.2) Urine Color (Yellow) Urine Clarity (Clear) Urine pH (5.0-8.0) pH Units Ur Specific [place] (1.010-1.025) Urine Protein (Neg-Trace) mg/dL Urine Glucose (UA) (Normal) mg/dL Urine Ketones (Negative) mg/dL Urine Blood (Negative) Urine Nitrite (Negative) Urine Bilirubin (Negative) Urine Urobilinogen (Normal) mg/dL Ur Leukocyte Esterase (Negative) Ur Culture Indicated? (NO) Stool Occult Blood (Negative) - Radiology Data Radiology results reviewed: Yes I reviewed the patient's radiology results. Abdomen/Pelvis CT 09/14/17 14:50 IMPRESSION: 1. 6.6 mm bladder stone centrally. No definite hydroureter or hydronephrosis is seen to suggest recent passage of a ureteral stone. 2. Enlarged irregular appearing prostate gland protruding into the base of the bladder. A prostatic mass cannot be excluded 3. Probable multiple hepatic cysts 4. Normal appearing appendix 5. Right-sided bladder diverticulum of questionable clinical significance 6. Infiltration of the mesenteric centrally suggesting mesenteritis D/ / Mandeep Motley MD / Mandeep Motley MD Interpreting Provider: Mandeep Motley MD Attestation Statement - Attestation Attestation: Pt is a pleasant 72 yo wm, with 5 wk hx of ongoing constipation, rectal bleeding with BM's, and urinary hesitancy. Pt has been seen by his PCP, UC and tried multiple rounds of laxatives and antibx for UTI with no change or improvement in his sxs. Pt denies any F/C, no hx BPH, no bowel ds/recent bowel surgeries. Pt concerned because sxs are not improving. Pt denies any abd pain, no flank pain, no CP/press, no SOB. I agree with pt's PE findings as documented. VSS. Pt in NAD, resting comfortably at bedside. Initially, H/H, stool guaiac and UA checked. H/H stable, UA neg for infection. Pt with gross blood on rectal exam, without obvious hemorrhoids/mass/abscess or abnormality on rectal exam. Concerned with possible diverticulitis, pt underwent lab eval and CT imaging. Also initially concerned with rectal bleeding and on eliquis for a fib. H/H stable and VSS. CT shows bladder stone without obstruction, prostatic mass, bladder diverticulum, and mesenteritis. Pt remained hemodynamically stable, and pain free throughout ED course. Case d/w GI and urology, accepted for admission by hospitalist.
[2017-09-14] MEDS ORDERED: Metoprolol XL (24 HR) Succ 50 MG TAB.ER.24H PO PRN (21:45)
[2017-09-14] MEDS ORDERED: SODIUM CHLORIDE/NAHCO3/KCL/PEG 4,000 ML SOLN.RECON PO ONE (21:48)
[2017-09-14] MEDS ORDERED: Ondansetron 4 MG/2 ML VIAL IVP PRN (21:51)
[2017-09-14] MEDS ORDERED: Naloxone 0.4 MG/ML INJ IVP PRN (21:51)
--- NOTE | 2017-09-14 22:00 | Internal Med History&Physical ---
Date of Encounter: 09/14/17 Time of Encounter: 21:56 Assessment and Plan (1) Lower GI bleed Current visit: Yes Status: Acute Patient presenting with intermittent constipation for approximately 6 months. Also concern for new bright red blood per rectum. Patient is on a liquid and aspirin. Last colonoscopy in 2004, at that time his hand to have 3 polyps. No family history of colon cancer. However there is some concern for possible malignancy and CT of abdomen and pelvis has enlarged irregular prostate concern for metastatic prostate cancer Consult GI,-spoke with who requests restart the patient on clears diet, give 20 mg Dulcolax now and start initially switched to MiraLAX prep 4 L prep Additionally if the patient cannot tolerate NuLytely he should be switched to MiraLAX prep Plan is for colonoscopy in the morning urology, -spoke with Dr. Méndez in urology will see patient tomorrow. Recommendations to order PSA now oncology-dayshift team to call H&H every 6 hours 3 (2) Constipation Current visit: Yes Status: Acute See plan above Qualifiers: Constipation type: unspecified constipation type Qualified Code(s): K59.00 - Constipation, unspecified (3) HTN (hypertension) Current visit: Yes Status: Acute History of essential hypertension. Patient reports he normally has adequate blood pressure control and all medications. However, he reports that he has not taken his evening blood pressure medication at this time. He is systolically in the 170s. We will resume home antihypertensive medications now and start hydralazine 5 mg every 6 IV push for SBP greater than Qualifiers: Hypertension type: essential hypertension Qualified Code(s): I10 - Essential (primary) hypertension Internal Medicine - H&P: HPI Chief complaint: Constipation and difficulty voiding Admitted From: Home Plans for Post Hospital Care: Home History of present illness: Mr. Chavez is a 72 year old male presents with constipation which began approximately 6 months ago. He reports that he is intermittently constipated sometimes going multiple days before being able to have a bowel movement. This is a change in his normal pattern. Patient has been taking stool softeners and bulk fiber and is not helping the constipation. Additionally, he reports bright red blood per rectum. Last colonoscopy was in 2004 identified 3 polyps. No family history of colon cancer. Denies any fever, chills, night sweats, appetite changes. Admits to changes in stool size, bowel pattern and some left lower quadrant abdominal pain. The patient is eliquis and aspirin. Past Med Surg Social Fam HX - Past Medical History Medical history: atrial fibrillation, cardiomyopathy, coronary artery disease, hyperlipidemia, hypertension, other Psychiatric history: no psych history - Past Surgical History Surgical History: angioplasty/stent, cataract, coronary bypass (CABG), herniorrhaphy, LE stent(s), splenectomy, other - Social History Smoking Status: Former smoker Smokeless Tobacco Status: No Alcohol use: none Drug use: none - Family History Mother Family Member Ethnicity: Non- Living Status: Hx Family Cardiac Disorders: Yes (MS) Father Family Member Ethnicity: Non- Living Status: Hx Family Cardiac Disorders: Yes (MS) Internal Medicine - H&P: Meds Aspirin 81 mg PO QPM 07/20/16 [History] Tamsulosin [Flomax] 0.8 mg PO QAM 07/20/16 [History] Amiodarone [Cordarone] 400 mg PO QAM 02/22/17 [History] Apixaban [Eliquis] 5 mg PO BID 02/22/17 [History] Furosemide [Lasix] 40 mg PO QAM 02/22/17 [History] Metoprolol XL (24 HR) Succ [Toprol Xl] 50 mg PO QPM PRN 02/22/17 [History] Potassium Chloride [Klor-Con 10] 10 meq PO QAM 04/05/17 [History] Potassium Chloride [Klor-Con 10] 20 meq PO QPM 09/14/17 [History] 3 Allergy/AdvReac Type Severity Reaction Status Date / Time Penicillins AdvReac See Verified 04/05/17 14:23 Comments ramipril [From Altace] AdvReac Cough Verified 04/05/17 14:23 Yzemogl-Tra-Mef Reductase AdvReac Muscle Pain Verified 04/05/17 14:23 Inhibitor [Statins] All Systems PM: A 10-system review of systems was performed and is negative for pertinent findings except as documented above in the HPI. Review of systems: REVIEW OF SYSTEMS GENERAL: Negative for any nausea, vomiting, fevers, chills, or weight loss. NEUROLOGIC: Negative for any blurry vision, blind spots, double vision, facial asymmetry, dysphagia, dysarthria, hemiparesis, hemisensory deficits, vertigo, ataxia. HEENT: Negative for any head trauma, neck trauma, neck stiffness, photophobia, phonophobia, sinusitis, rhinitis. CARDIAC: Negative for any chest pain, dyspnea on exertion, paroxysmal nocturnal dyspnea, peripheral edema. PULMONARY: Negative for any shortness of breath, wheezing, COPD, or TB exposure. GASTROINTESTINAL: Negative for any abdominal pain, nausea, vomiting, melena. Positive for bright red blood per rectum and constipation as well as left lower quadrant abdominal pain GENITOURINARY: Negative for any dysuria, hematuria, incontinence. INTEGUMENTARY: Negative for any rashes, cuts, insect bites. RHEUMATOLOGIC: Negative for any joint pains, photosensitive rashes, history of vasculitis or kidney problems. HEMATOLOGIC: Negative for any abnormal bruising, frequent infections or bleeding. - Constitutional Vitals: Temp Pulse Resp BP Pulse Ox 97.7 F 63 16 186/99 98 09/14/17 19:21 09/14/17 19:21 09/14/17 19:21 09/14/17 19:21 09/14/17 19:21 General appearance: Present: cooperative, A&O X 3, no acute distress, answers questions appropriately Exam: PHYSICAL EXAMINATION: GENERAL: The patient is a well-developed, well-nourished male in no apparent distress. He is alert and oriented x3. VITAL SIGNS: Temperature 98.4, pulse 72, respirations 18, blood pressure 146/78 , and O2 saturation 96% on room air. HEENT: Head is normocephalic and atraumatic. Extraocular muscles are intact. Pupils are equal, round, and reactive to light and accommodation. Nares appeared normal. Mouth is well hydrated and without lesions. Mucous membranes are moist. Posterior pharynx clear of any exudate or lesions. NECK: Supple. No carotid bruits. No lymphadenopathy or thyromegaly. LUNGS: Clear to auscultation. HEART: Regular rate and rhythm without murmur. ABDOMEN: Soft, nontender, and nondistended. Positive bowel sounds. No hepatosplenomegaly was noted. EXTREMITIES: Without any cyanosis, clubbing, rash, lesions or edema. NEUROLOGIC: Cranial nerves II through XII are grossly intact. PSYCHIATRIC: Flat affect, but denies suicidal or homicidal ideations. SKIN: No ulceration or induration present. Internal Med - H&P Results - Labs CBC & Chem 7: 09/14/17 15:13 09/14/17 15:13 - Diagnostic Studies MRI - abdomen Status: image reviewed by me Additional comments: 6.6 mm bladder stone centrally and no definite hydroureter or hydronephrosis seen .CT of abdomen and pelvis reveals an irregular prostate gland. The base of the bladder concerning for prostate mass. Appendix appears normal. Patient be multiple hepatic cysts. Right-sided bladder diverticulum questionable clinical significance. Filtration of mesentery centrally suggesting mesenteritis - VTE Reasons for not Prescribing Prophylaxis: Medical contraindication
[2017-09-14 22:05] LABS: INR 1.3
[2017-09-14 22:17] LABS: Hematocrit 44.6 % (37.5-50.1); Hemoglobin 14.6 g/dL (12.9-16.9)
--- NOTE | 2017-09-15 00:38 | Event Note ---
Date of Encounter: 09/15/17 Time of Encounter: 22:00 Please link this note to H&P completed by ALLISON Jared Conte I have personally performed a face to face evaluation on this patient. I have reviewed and agree with the care plan. History and Exam by me shows: 72 yo male hx of AFib s/p ablation on eliquis, CAD s/p triple bypass 2003, TURP approx 20 years ago , right testicular cancer in 1979 s/p orchiectomy and radiation. Presents with 6 weeks hx of bleeding - streaking blood in stool. Associated constipation Previously had dribbling of urine, dysuria and completed 10 days of antibiotics for UTI CT/CT abd pelvis w iv no oral IMPRESSION: 1. There is a 6.6 mm bladder stone centrally. No definite hydroureter or hydronephrosis is seen to suggest recent passage of a ureteral stone. 2. Enlarged irregular appearing prostate gland protruding into the base of the bladder. A prostatic mass cannot be excluded. 3. Probable multiple hepatic cysts. 4. Normal appearing appendix. 5. Right-sided bladder diverticulum of questionable clinical significance. 6. Infiltration of the mesentery centrally suggesting mesenteritis. General - AAO x 3 Psych - Appropriate affect/speech. No agitation Eyes - DEEPA. Eye lids intact. No scleral icterus Heart - Sinus. RRR. S1 and S2 present. No added HS/murmurs appreciated. No elevated JVD appreciated. Lung - Adequate air entry b/l, No crackles/wheezes appreciated GI - Soft, non-tender. No hepatosplenomegaly/ascites. BS+ - No CVA/suprapubic tenderness or palpable bladder distension Skin - Intact. No rash/petechiae/ecchymosis. Warm extremities MSK - Joints with normal ROM. No joint swellings ROS 14 point review of systems reviewed as best as possible given presentation. Pertinent positive or negative as per HPI or otherwise reviewed as negative A/P Rectal bleeding - streaking - GI eval - plan for C-scope in a.m - Bowel prep - could be related to hemorrhoids from constipation but will also benefit from Urol eval in light of abnormal prostate on CT. No invasion into rectum reported on CT - Await C-scope results CT with irregular/abnormal prostate findings - check PSA - urol follow up DMII HTN CAD s/p CABG AFib - hold eliquis
[2017-09-15 03:16] LABS: Hematocrit 47.4 % (37.5-50.1); Hemoglobin 15.6 g/dL (12.9-16.9); Immature Platelets 7.8 % (1.1-6.1); Mean Corpuscular HGB Conc 32.9 g/dL (31.6-35.5); Mean Corpuscular Hemoglobin 30.6 pg (28.0-33.3); Mean Corpuscular Volume 92.9 fL (83.0-100.0); Mean Platelet Volume 10.5 fL (9.4-12.4); Red Blood Count 5.1 M/mcL (4.19-5.50)
[2017-09-15 03:33] LABS: BUN/Creatinine Ratio 11 (6-26); Blood Urea Nitrogen 12 mg/dL (8-23); Calcium 9.2 mg/dL (8.6-10.3); Carbon Dioxide 28 mEq/L (23-29); Chloride 100 mEq/L (98-107); Glucose 98 mg/dL (70-105); Osmolality,Calculated 286 (280-300); Potassium 3.7 mEq/L (3.5-5.1); Sodium 138 mEq/L (136-145); eGFR For African Americans > 60 (> 60); eGFR For Non-African Americans > 60 (> 60)
--- NOTE | 2017-09-15 06:53 | Urology - Consult Note ---
Date of Encounter: 09/15/17 Time of Encounter: 06:51 - Assessment and Plan (1) BPH loc w urin obs/LUTS Current Visit: Yes Status: Acute Assessment and plan: I personally reviewed the CT scan. Patient has significant enlargement of the prostate with evidence of outlet obstruction in the form of bladder wall thickening, bladder stone and and a bladder diverticulum. These findings are consistent with his history of a TURP 20 years ago and increasing symptoms over the last year. The significant difficulty urinating has improved with resolution of constipation. I do not feel that urgent urologic intervention is required. I recommend the patient start tamsulosin and continue at discharge. Okay for patient follow-up in a few weeks in the urology office. Minimal concern for prostate cancer as his PSA this morning was 1.8. This was communicated with the patient. Patient inquired about surgical options for his BPH. We discussed greenlight photo vaporization of prostate. Patient is interested in the procedure if he is a good candidate as he is not interested in long-term medications for his BPH. Urology CN:[facility] Consult date: 09/15/17 Reason for consult Urology: Other (BPH) History of present illness: 72-year-old male due to the [facility] urology service. Admitted for GI issues. CT scan discovered a enlarged prostate which was reportedly concerning for a mass. There is also having significant hesitancy. Patient reports she's had significant difficulty urinating over the last week with increasing constipation issues. He has a history of a TURP 20 years ago but over the last year has had increasing slow stream, hesitancy, nocturia, urgency, frequency. He states all significant urinary symptoms resolved overnight with resolution of constipation. Past Med Surg Social Fam HX - Past Medical History Medical history: arthritis, atrial fibrillation, cardiomyopathy, coronary artery disease, hyperlipidemia, hypertension, other Psychiatric history: no psych history - Past Surgical History Surgical History: angioplasty/stent, cataract, coronary bypass (CABG), herniorrhaphy, LE stent(s), splenectomy, other - Social History Smoking Status: Former smoker Smokeless Tobacco Status: No Alcohol use: none Drug use: none - Family History Mother Family Member Ethnicity: Non- Living Status: Hx Family Cardiac Disorders: Yes ([place]) Father Family Member Ethnicity: Non- Living Status: Hx Family Cardiac Disorders: Yes ([place]) Medications and Allergies Aspirin 81 mg PO QPM 11/02/16 [History] Tamsulosin [Flomax] 0.8 mg PO QAM 07/20/16 [History] Amiodarone [Cordarone] 400 mg PO QAM 02/22/17 [History] Apixaban [Eliquis] 5 mg PO BID 02/22/17 [History] Furosemide [Lasix] 40 mg PO QAM 02/22/17 [History] Metoprolol XL (24 HR) Succ [Toprol Xl] 50 mg PO QPM PRN 02/22/17 [History] Potassium Chloride [Klor-Con 10] 10 meq PO QAM 04/05/17 [History] Potassium Chloride [Klor-Con 10] 20 meq PO QPM 09/14/17 [History] 3 Allergy/AdvReac Type Severity Reaction Status Date / Time Penicillins AdvReac See Verified 04/05/17 14:23 Comments ramipril [From Altace] AdvReac Cough Verified 04/05/17 14:23 Yrdotst-Dpu-Wvg Reductase AdvReac Muscle Pain Verified 04/05/17 14:23 Inhibitor [Statins] Review of Systems - Constitutional no chills, no fever(s) - EENT Nose, mouth and throat: no dizziness - Cardiovascular no chest pain - Respiratory no cough - Gastrointestinal abdominal pain, change in bowel habits, nausea - Genitourinary difficulty urinating, no hematuria - Musculoskeletal back pain - Integumentary no erythema - Neurological no confusion - Psychiatric no anxiety - Hematologic/Lymphatic no easy bleeding - Allergic/Immunologic no as per HPI Exam Initial Vital Signs Temp Pulse Resp BP Pulse Ox 98.1 F 58 18 139/81 98 09/14/17 11:47 09/14/17 11:47 09/14/17 11:47 09/14/17 11:47 09/14/17 11:47 - General physical appearance Present: well developed, no distress, no pain - Eyes Present: conjunctiva is clear - ENT Present: normal nares - Neck Present: no masses, no lymphadenopathy - Respiratory Present: normal respiratory effort - Cardiovascular Cardiovascular exam IM: RRR - Abdomen Abdomen: Present: soft. Absent: masses, suprapubic tenderness - Genitourinary normal penis with no external lesions - Integumentary Absent: lesions, disoriented - Neurologic Present: normal coordination. Absent: disoriented, confused - Additional Findings Appropriate conversation. Urology Results - Labs 09/15/17 03:06 09/15/17 03:06 Abnormal lab results Immature Plt Fraction 7.8 % (1.1-6.1) H 09/15/17 03:06 PT 14.0 Seconds (9.4-12.1) H 09/14/17 21:49 Serum Total Protein 5.8 g/dL (6.4-8.9) L 09/14/17 15:13 Globulin 2.3 g/dL (2.4-3.5) L 09/14/17 15:13 Stool Occult Blood Positive (Negative) A 09/14/17 14:27 Diabetes panel 09/15/17 Range/Units 03:06 Sodium 138 (136-145) mEq/L Potassium 3.7 (3.5-5.1) mEq/L Chloride 100 (98-107) mEq/L Carbon Dioxide 28 (23-29) mEq/L BUN 12 (8-23) mg/dL Creatinine 1.05 (0.70-1.30) mg/dL Glucose 98 (70-105) mg/dL Calcium 9.2 (8.6-10.3) mg/dL Calcium panel 09/15/17 Range/Units 03:06 Calcium 9.2 (8.6-10.3) mg/dL Pituitary panel 09/15/17 Range/Units 03:06 Sodium 138 (136-145) mEq/L Potassium 3.7 (3.5-5.1) mEq/L Chloride 100 (98-107) mEq/L Carbon Dioxide 28 (23-29) mEq/L BUN 12 (8-23) mg/dL Creatinine 1.05 (0.70-1.30) mg/dL Glucose 98 (70-105) mg/dL Calcium 9.2 (8.6-10.3) mg/dL Adrenal panel 09/15/17 Range/Units 03:06 Sodium 138 (136-145) mEq/L Potassium 3.7 (3.5-5.1) mEq/L Chloride 100 (98-107) mEq/L Carbon Dioxide 28 (23-29) mEq/L BUN 12 (8-23) mg/dL Creatinine 1.05 (0.70-1.30) mg/dL Glucose 98 (70-105) mg/dL Calcium 9.2 (8.6-10.3) mg/dL All other labs normal. Consult Discharge Plan - Plan Referrals: Jerome Betancourt MD [Primary Care Provider] -
--- NOTE | 2017-09-15 07:54 | Anesthesia Evaluation PreOp ---
<Nicolasa Pimentel - Last Filed: 09/15/17 07:52> Date of Encounter: 09/15/17 - Past History Planned Operation: colonoscopy Cardiac History: CHF (cardiomyopathy), HTN, Hyperlipidemia, Arrhythmia (atrial fibrillation), Cardiac Surgery, Cardiac Stent Pulmonary History: Former smoker Other Medical History: Other (testicular cancer) Alcohol Use: none Drug use: none Medications and Allergies Aspirin 81 mg PO QPM 07/20/16 [History] Tamsulosin [Flomax] 0.8 mg PO QAM 07/20/16 [History] Amiodarone [Cordarone] 400 mg PO QAM 02/22/17 [History] Apixaban [Eliquis] 5 mg PO BID 02/22/17 [History] Furosemide [Lasix] 40 mg PO QAM 02/22/17 [History] Metoprolol XL (24 HR) Succ [Toprol Xl] 50 mg PO QPM PRN 02/22/17 [History] Potassium Chloride [Klor-Con 10] 10 meq PO QAM 04/05/17 [History] Potassium Chloride [Klor-Con 10] 20 meq PO QPM 09/14/17 [History] 3 Allergy/AdvReac Type Severity Reaction Status Date / Time Penicillins AdvReac See Verified 04/05/17 14:23 Comments ramipril [From Altace] AdvReac Cough Verified 04/05/17 14:23 Xewefah-Zdc-Prq Reductase AdvReac Muscle Pain Verified 04/05/17 14:23 Inhibitor [Statins] - Meds/Allergy Pre-op Review Medications Reviewed: Yes Allergies Reviewed: Yes Beta Blockers on Current Med List: Yes Anesthesia Results - Labs 09/15/17 03:06 09/15/17 03:06 <King Lomeli - Last Filed: 09/15/17 09:14> Date of Encounter: 09/15/17 Time of Encounter: 09:14 - Past History Cardiac History: Cardiac Surgery (HEART CATH 02/01 SHOWS 2 OF 3 GRAFTS PATENT Echo 04/03 show EF 60% He denies anginal symptoms with exertion) Anesthesia History: No Prior Anesthetic Complications, Past Anesthesia Anesthesia Results - Labs 09/15/17 03:06 09/15/17 03:06 Anesthesia Exam Selected Entries 09/15/17 06:53 Temperature 97.6 F Pulse Rate 64 Respiratory Rate 16 Blood Pressure 179/89 O2 Sat by Pulse Oximetry 93 NPO (# of Hours): 8 - HEENT Pupil (Motor): EOMI Mallampati: II Teeth: Edentulous Oral Opening: Greater than 3 - CONCERT PROMOTER LOC: Oriented CONCERT PROMOTER Motor: Normal RUE, Normal LUE, Normal RLE, Normal LLE, Normal Face CONCERT PROMOTER Sensory: Normal: RUE, LUE, RLE, LLE, Face - Cardiac Rhythm: Irregular Murmur: None - Pulmonary Breath Sounds: bilateral Clear Respiratory Effort: Symmetrical Anesthesia Assess/Plan ASA Score: 3 Modified Tiffanie Scale for Level of Consciousness: Cooperative, oriented, and tranquil Anesthetic Plan: MAC Monitoring Plan: Standard Monitors Recovery Plan: Other (discussed MAC and agrees to proceed)
[2017-09-15] MEDS ORDERED: *HR* Amiodarone 200 MG TABLET PO SCH (09:00)
[2017-09-15] MEDS ORDERED: Furosemide 40 MG TABLET PO SCH (09:00)
[2017-09-15] MEDS ORDERED: Propofol 500 MG/50 ML INFUS..BTL ONE (09:20)
[2017-09-15] MEDS ORDERED: Lidocaine -MPF 2% 2 ML VIAL ONE (09:20)
[2017-09-15] MEDS ORDERED: EPHEDrine 50 MG/ML VIAL ONE (09:59)
[2017-09-15] MEDS ORDERED: Simethicone 40 MG/0.6 ML MLS IR ONE (10:14)
[2017-09-15] MEDS ORDERED: Hydrocortisone Acetate 25 MG RECTAL SUPPOSITORY RC PRN (10:47)
--- NOTE | 2017-09-15 10:52 | Gastroenterology Consult Note ---
Date of Encounter: 09/15/17 Time of Encounter: 10:30 - Assessment and plan (1) Constipation Current Visit: Yes Status: Acute Assessment and plan: Pt has been taking Miralax BID, daily fiber supplement, and stool softener. Continue daily fiber supplement, and start Linzess 145 mcg daily on discharge. Follow up in GI office in 3 weeks. Qualifiers: Constipation type: unspecified constipation type Qualified Code(s): K59.00 - Constipation, unspecified (2) Lower GI bleed Current Visit: Yes Status: Acute Assessment and plan: Likely secondary to internal hemorrhoids. Colonoscopy with 5 polyps ranging from 7-12 mm in size, severe internal hemorrhoids, diverticulosis. Repeat colonoscopy in 2 years for surveillance. Start Anusol suppository twice a day. Continue daily fiber supplement. - Time Spent With Patient Total time spent is greater than 50% in coordination of care (as documented) at patient's floor/unit and/or counseling patient: GI History of Present Illness - Data of Consult Patient: new to practice Consult date: 09/15/17 Requesting Physician: Bipin Navarro - Consult Narrative Reason for consult: GI bleed, on Eliquis History of present illness: Mr. Chavez is a 72 year old male with PMHx of Afib, cardiomyopathy, CAD, HLD, HTN presented with c/o constipation that started 6 months ago and BRBPR. Pt states he may have hemorrhoids. He is taking stool softeners, Miralax, and fiber supplement but having more difficulty having BM. He reports having 2-3 BMs per week for the past 6 weeks. Last colonoscopy in 2004, 3 polyps. No family history of colon cancer. CT A/P probable multiple hepatic cysts, 6.6mm bladder stone, enlarged prostate. Procedures: colonoscopy in 2004, at that time his hand to have 3 polyps NSAIDs: ASA Anticoagulation: Eliquis Past Med Surg Social Fam HX - Past Medical History Medical history: arthritis, atrial fibrillation, cardiomyopathy, coronary artery disease, hyperlipidemia, hypertension, other Psychiatric history: no psych history - Past Surgical History Surgical History: angioplasty/stent, cataract, coronary bypass (CABG), herniorrhaphy, LE stent(s), splenectomy, other - Social History Smoking Status: Former smoker Smokeless Tobacco Status: No Alcohol use: none Drug use: none - Family History Mother Family Member Ethnicity: Non- Living Status: Hx Family Cardiac Disorders: Yes ([place]) Father Family Member Ethnicity: Non- Living Status: Hx Family Cardiac Disorders: Yes ([place]) - Gastrointestinal Gastrointestinal: Present: as per HPI - Constitutional Constitutional: as per HPI - EENT Eyes: as per HPI Ears: Present: as per HPI Nose, mouth and throat: Present: as per HPI - Cardiovascular Cardiovascular ROS: Present: as per HPI - Respiratory Respiratory IM: Present: as per HPI - Genitourinary Genitourinary: Absent: change in color, Urinary frequency - Neurological ROS Neurological GI: Present: as per HPI - Hematologic/Lymphatic Hematologic/Lymphatic pediatric: Present: as per HPI - Musculoskeletal Musculoskeletal ROS GI: Present: as per HPI - Integumentary Integumentary GI: Present: as per HPI - Psychiatric ROS Psychiatric GI: Present: as per HPI - Endocrine Endocrine IM: Present: as per HPI - Constitutional Vitals: Temp Pulse Resp BP Pulse Ox 97.6 F 65 16 168/83 97 09/15/17 09:05 09/15/17 09:05 09/15/17 09:05 09/15/17 09:05 09/15/17 09:05 General appearance: Present: cooperative, A&O X 3, no acute distress, answers questions appropriately - Head Head exam: Present: atraumatic, normocephalic - Eye Eye exam: Present: normal appearance, sclera anicteric - ENT ENT exam: Present: mucous membranes dry - Neck Neck exam general surgery: Present: normal inspection, trachea midline - Respiratory Respiratory exam: Present: CTAB. Absent: rales, rhonchi - Cardiovascular Cardiovascular exam: Present: RRR, +S1, +S2 - GI/Abdominal GI/Abdominal exam: Present: soft, no peritoneal signs. Absent: distended, firm , guarding, tenderness - Rectal Rectal exam: Present: deferred - Extremities Exam Extremities exam: Present: warm - Neurological Exam Neurological exam: Present: no focal deficits - Psychiatric Psychiatric exam: Present: normal affect, normal mood - Skin Skin exam: Present: dry, intact, normal color, warm Results - Labs CBC & Chem 7: 09/15/17 03:06 09/15/17 03:06 Labs: Last Result Calcium 9.2 mg/dL (8.6-10.3) 09/15/17 03:06 Stool Occult Blood Positive (Negative) A 09/14/17 14:27 Entire Visit Hgb 15.6 g/dL (12.9-16.9) 09/15/17 03:06 Hct 47.4 % (37.5-50.1) 09/15/17 03:06 PT 14.0 Seconds (9.4-12.1) H 09/14/17 21:49 Total Bilirubin 0.5 mg/dL (0.3-1.0) 09/14/17 15:13 AST 22 Units/L (13-39) 09/14/17 15:13 ALT 30 Units/L (7-52) 09/14/17 15:13 - ABG ABG results: PT/INR, D-dimer PT 14.0 Seconds (9.4-12.1) H 09/14/17 21:49 Consult Discharge Plan - Plan Referrals: Jerome Betancourt MD [Primary Care Provider] -
[2017-09-15 11:51] LABS: Hemoglobin 14.5 g/dL (12.9-16.9)
--- NOTE | 2017-09-15 12:23 | Discharge Summary ---
Date of Encounter: 09/15/17 Time of Encounter: 12:21 - Discharge Diagnosis (1) Lower GI bleed Priority: Primary Status: Acute Comments: Likely secondar to internal hemorrhoids. (2) Constipation Priority: Secondary Status: Acute Qualifiers: Constipation type: unspecified constipation type Qualified Code(s): K59.00 - Constipation, unspecified (3) BPH loc w urin obs/LUTS Priority: Secondary Status: Acute (4) HTN (hypertension) Priority: Secondary Status: Acute Qualifiers: Hypertension type: essential hypertension Qualified Code(s): I10 - Essential (primary) hypertension - Discharge Medications Home Medications: Aspirin 81 mg PO QPM 07/20/16 [History] Tamsulosin [Flomax] 0.8 mg PO QAM 07/20/16 [History] Amiodarone [Cordarone] 400 mg PO QAM 02/22/17 [History] Apixaban [Eliquis] 5 mg PO BID 02/22/17 [History] Furosemide [Lasix] 40 mg PO QAM 02/22/17 [History] Metoprolol XL (24 HR) Succ [Toprol Xl] 50 mg PO QPM PRN 02/22/17 [History] Potassium Chloride [Klor-Con 10] 10 meq PO QAM 04/05/17 [History] Potassium Chloride [Klor-Con 10] 20 meq PO QPM 09/14/17 [History] Linaclotide [Linzess] 145 mcg PO DAILY #30 capsule 09/15/17 [Rx] Allergies/Adverse Reactions: 3 Allergy/AdvReac Type Severity Reaction Status Date / Time Penicillins AdvReac See Verified 04/05/17 14:23 Comments ramipril [From Altace] AdvReac Cough Verified 04/05/17 14:23 Xfyljzl-Ttf-Hyx Reductase AdvReac Muscle Pain Verified 04/05/17 14:23 Inhibitor [Statins] Date of admission: 09/14/17 21:51 Primary care physician: Jerome Betancourt MD Discharging clinician: Pankaj Richard - Patient Status Disposition: Home, Self-Care Condition: Fair Functional capacity at discharge: independent ambulation Overall status at discharge: patient is back to baseline - Discharge Instructions Follow Up With: Jerome Betancourt MD [Primary Care Provider] - - Diet and Activity Activity: increase activity as tolerated Diet: advance to your usual diet Hospital course: Mr. Chavez is a 72 year old male presents with constipation which began approximately 6 months ago. He reports that he is intermittently constipated sometimes going multiple days before being able to have a bowel movement. This is a change in his normal pattern. Patient has been taking stool softeners and bulk fiber and is not helping the constipation. Additionally, he reports bright red blood per rectum. Last colonoscopy was in 2004 identified 3 polyps. No family history of colon cancer. Denies any fever, chills, night sweats, appetite changes. Admits to changes in stool size, bowel pattern and some left lower quadrant abdominal pain. The patient is on Eliquis and aspirin. A CT of abdomen was done showing an enlarged irregular prostate, but no findings to explain LGIB. Urology was consulted and PSH was only 1.8, less likely cancer related. He does have history of TURP 20 years ago, likely the cause and he was arranged for Urology outpatient follow-up. GI was consulted for BRBPR and patient had colonoscopy done on 09/15 and patient seen to have internal hemorrhoids and 4 non-bleeding polyps that were removed. He was continued on his home stool softeners plus Linzess was added. He has GI scheduled for office follow-up in 3 weeks. Patient had no further episodes of rectal bleed. His H&H was stable and vitals as well. He was discharged home in stable condition. - Time Spent with Patient Total time spent providing and/or coordinating discharge services: - Constitutional Vitals: Temp Pulse Resp BP Pulse Ox 97.6 F 58 16 165/73 94 09/15/17 11:47 09/15/17 11:47 09/15/17 11:47 09/15/17 11:47 09/15/17 11:47 Exam: GENERAL: The patient is a well-developed, well-nourished male in no apparent distress. He is alert and oriented x3. VITAL SIGNS: Temperature 98.4, pulse 72, respirations 18, blood pressure 146/78 , and O2 saturation 96% on room air. HEENT: Head is normocephalic and atraumatic. Extraocular muscles are intact. Pupils are equal, round, and reactive to light and accommodation. Nares appeared normal. Mouth is well hydrated and without lesions. Mucous membranes are moist. Posterior pharynx clear of any exudate or lesions. NECK: Supple. No carotid bruits. No lymphadenopathy or thyromegaly. LUNGS: Clear to auscultation. HEART: Regular rate and rhythm without murmur. ABDOMEN: Soft, nontender, and nondistended. Positive bowel sounds. No hepatosplenomegaly was noted. EXTREMITIES: Without any cyanosis, clubbing, rash, lesions or edema. NEUROLOGIC: Cranial nerves II through XII are grossly intact. PSYCHIATRIC: Flat affect, but denies suicidal or homicidal ideations. SKIN: No ulceration or induration present. - VTE Reasons for not Prescribing Prophylaxis: Medical contraindication Documentation of Mechanical Device: Intermittent pneumatic compression device
[2017-09-15] MEDS: Hydrocortisone Acetate 25 MG RECTAL SUPPOSITORY RC SCH ×2 (13:18→21:58)
--- NOTE | 2017-09-15 16:59 | Oncology Inp Consult Note ---
Date of Encounter: 09/15/17 Time of Encounter: 17:00 Assessment and Plan (1) GI bleed Status: Acute Assessment and plan: Stable hemoglobin and hematocrit, possible bleeding from hemorrhoids CT imaging findings revealed colonoscopy status post polypectomy no active bleeding identified, patient will continue anticoagulation (for A fib/CAD) with close monitoring of hemoglobin hematocrit. The prostatic mass patient to follow up outpatient with urology PSA is within normal range. Possible benign prostatic hypertrophy contributing to symptoms. Bladder stone/mass further workup by urology. Paln of care d/w patient bedside. Qualifiers: GI bleed type/associated pathology: anorectal hemorrhage Qualified Code(s) : K62.5 - Hemorrhage of anus and rectum - Data of Consult Requesting Physician: Bipin Navarro Primary Care Provider: Jerome Betancourt MD - Consult Narrative Reason for consult: prostate/bladder mass, bleeding on anticoag History of present illness: Mr. Chavez is a 72 year old male with med hx sig for Afib, cardiomyopathy, CAD, HLD, HTN, on anticoagulation outpatient with liquids, hospitalized due to bleeding per rectum, history of constipation had undergone a colonoscopy since admission. Patient also had a CT imaging that showed a bladder stone, irregular and enlarged prostate gland prostate mass could not be excluded, mesenteric inflammation. Patient was seen by urology, have benign prostatic hypertrophy PSA is low at 1.8 with minimal concern for prostate cancer. Patient has a history of transurethral resection of prostate 20 years ago or so. Patient underwent a colonoscopy sigmoid polypectomy. Active bleeding by report. He has history of coronary artery bypass grafting/stent placement, prior splenectomy, atrial fibrillation requiring anticoagulation. Admission labs had shown normal CBC, evidence of coagulopathy, liver function tests normal, imaging showed probable multiple hepatic cysts. Past Med Surg Social Fam HX - Past Medical History Medical history: arthritis, atrial fibrillation, cardiomyopathy, coronary artery disease, hyperlipidemia, hypertension, other Psychiatric history: no psych history - Past Surgical History Surgical History: angioplasty/stent, cataract, coronary bypass (CABG), herniorrhaphy, LE stent(s), splenectomy, other - Social History Smoking Status: Former smoker Smokeless Tobacco Status: No Alcohol use: none Drug use: none - Family History Mother Family Member Ethnicity: Non- Living Status: Hx Family Cardiac Disorders: Yes ([place]) Father Family Member Ethnicity: Non- Living Status: Hx Family Cardiac Disorders: Yes ([place]) Medications and Allergies Aspirin 81 mg PO QPM 07/20/16 [History] Tamsulosin [Flomax] 0.8 mg PO QAM 07/20/16 [History] Amiodarone [Cordarone] 400 mg PO QAM 02/22/17 [History] Apixaban [Eliquis] 5 mg PO BID 02/22/17 [History] Furosemide [Lasix] 40 mg PO QAM 02/22/17 [History] Metoprolol XL (24 HR) Succ [Toprol Xl] 50 mg PO QPM 02/22/17 [History] Potassium Chloride [Klor-Con 10] 10 meq PO QAM 04/05/17 [History] Potassium Chloride [Klor-Con 10] 20 meq PO QPM 09/14/17 [History] Linaclotide [Linzess] 145 mcg PO DAILY #30 capsule 09/15/17 [Rx] 3 Allergy/AdvReac Type Severity Reaction Status Date / Time Penicillins AdvReac See Verified 04/05/17 14:23 Comments ramipril [From Altace] AdvReac Cough Verified 04/05/17 14:23 Uzhozob-Tqq-Tyo Reductase AdvReac Muscle Pain Verified 04/05/17 14:23 Inhibitor [Statins] Oncology - Exam - Constitutional Vitals: Temp Pulse Resp BP Pulse Ox 97.7 F 65 14 128/55 98 09/15/17 15:29 09/15/17 15:29 09/15/17 15:29 09/15/17 15:29 09/15/17 15:29 General appearance: average body habitus - Eye Eye exam: Present: sclera anicteric - Neck Neck exam: Present: full ROM - Respiratory Respiratory exam: Present: CTAB - Cardiovascular Cardiovascular exam: Present: +S1, +S2 - GI/Abdominal GI/Abdominal exam: Present: normal bowel sounds, soft - Extremities Exam Extremities exam: Present: normal inspection - Neurological Exam Neurological exam: Present: alert, CN II-XII intact, oriented X3 - Psychiatric Psychiatric exam: Present: normal mood Oncology - Results Labs: Short CBC 09/14/17 09/15/17 09/15/17 Range/Units 21:58 03:06 11:08 WBC 6.5 (4.3-11.1) K/mcL Hgb 14.6 15.6 14.5 (12.9-16.9) g/dL Hct 44.6 47.4 44.0 (37.5-50.1) % Plt Count 185 (140-400) K/mcL [facility] 09/15/17 03:06 Sodium 138 Potassium 3.7 Chloride 100 Carbon Dioxide 28 BUN 12 Creatinine 1.05 Gl[address] as in HPI Consult Discharge Plan - Plan Referrals: Jerome Betancourt MD [Primary Care Provider] - (Web request 09/14/17) Prescriptions: Linaclotide [Linzess] 145 mcg PO DAILY #30 capsule
[2017-09-15] MEDS ORDERED: Metoprolol XL (24 HR) Succ 50 MG TAB.ER.24H PO SCH (18:00)
[2017-09-15] MEDS ORDERED: Apixaban 5 MG TABLET PO SCH (21:00)
[2017-09-16 07:21] VITALS: BP 158/75
== END 2017-09-16 07:31 | disposition home or self-care (01) | DRG 394 ==
LOC: 3ANU 11:44 → EMEROO 11:44 → 3ANU 18:57
PROVIDERS: ADMIT Internal Medicine Nephrology; ATTEND Internal Medicine